=== PATIENT | female | born 1930 | race Hispanic/Latino ===

== ENCOUNTER 2018-08-27 07:50 | Inpatient (IN) | payer MEDICARE ==
--- NOTE | 2018-08-27 08:18 | Emergency Department Report ---
ED General Adult HPI - General Stated complaint: BACK PAIN Time Seen by Provider: 08/27/18 08:16 - History of Present Illness Initial comments: This is a 89-year-old female presents with an apparent acute exacerbation of chronic back pain. The patient had an MRI and [facility] within the last week. Presents with a family member that does not know what it showed. They state that she was given a disc to bring to her pain clinic doctor. They have been presuming that she has sciatica with back pain radiating to the right leg. There is pain in the lower back which is exacerbated by movement. The patient was incapacitated due to pain this morning. She was brought to the emergency department for further pain management. She did not report any inability to urinate but was having difficulty positioning herself to do so. She's had chronic numbness in her right leg. She has a history of a kyphoplasty. She is on chronic pain management with gabapentin and Lortab. She does not report any increased numbness of her leg or weakness of her lower extremities. She denies a history of an abdominal aneurysm. Family states patient has "a urine infection". She is currently taking an unknown antibiotic. -: Gradual, week(s), month(s), year(s) Location: back (lower) Radiation: extremity Quality: aching Consistency: constant Improves with: none Worsens with: movement Associated Symptoms: denies other symptoms - Related Data Allergies Allergy/AdvReac Type Severity Reaction Status Date / Time No Known Allergies Allergy Unverified 08/27/18 08:22 ED Review of Systems ROS: Stated complaint: BACK PAIN Other details as noted in HPI Constitutional: denies: chills, fever Eyes: denies: eye pain, eye discharge, vision change ENT: denies: ear pain, throat pain Respiratory: denies: cough, shortness of breath, wheezing Cardiovascular: denies: chest pain, palpitations Endocrine: no symptoms reported Gastrointestinal: denies: abdominal pain, nausea, diarrhea Genitourinary: denies: urgency, dysuria, discharge Musculoskeletal: as per HPI, back pain. denies: joint swelling, arthralgia Skin: denies: rash, lesions Neurological: denies: headache, weakness, paresthesias Psychiatric: denies: anxiety, depression Hematological/Lymphatic: denies: easy bleeding, easy bruising ED Past Medical Hx - Past Medical History Previous Medical History?: Yes Additional medical history: Sciatica, UTI, no history of venous thromboembolism - Family History Family history: no significant - Social History Substance Use Type: None ED Physical Exam - General Limitations: Other (appears uncomfortable) General appearance: alert - Head Head exam: Present: atraumatic, normocephalic - Eye Eye exam: Present: normal appearance. Absent: scleral icterus - ENT ENT exam: Present: normal exam - Neck Neck exam: Present: normal inspection. Absent: tenderness, meningismus - Respiratory Respiratory exam: Present: normal lung sounds bilaterally. Absent: respiratory distress - Cardiovascular Cardiovascular Exam: Present: regular rate, normal rhythm. Absent: systolic murmur, diastolic murmur, rubs, gallop - GI/Abdominal GI/Abdominal exam: Present: soft, normal bowel sounds. Absent: distended, tenderness, guarding, rebound, rigid - Extremities Exam Extremities exam: Present: normal inspection, other (previous to have prior knee replacement on the right) - Back Exam Back exam: Present: paraspinal tenderness (poorly localized lower back). Absent: CVA tenderness (R), CVA tenderness (L), muscle spasm, vertebral tenderness - Neurological Exam Neurological exam: Present: CN II-XII intact. Absent: motor sensory deficit (states decreased sensation globally of the right leg, 5/5 dorsi and plantar fl exion) - Psychiatric Psychiatric exam: Present: normal affect, normal mood - Skin Skin exam: Present: warm, dry, intact, normal color. Absent: rash ED Course Vital Signs 08/27/18 08/27/18 08/27/18 08:22 08:54 09:00 Temperature 97.9 F Pulse Rate 72 Respiratory 16 18 18 Rate Blood Pressure 180/67 O2 Sat by Pulse 99 Oximetry 08/27/18 10:31 Temperature Pulse Rate Respiratory 18 Rate Blood Pressure O2 Sat by Pulse Oximetry - Reevaluation(s) Reevaluation #1: Discussed with Dr. Grace. Patient to be admitted. 08/27/18 13:14 ED Medical Decision Making - Lab Data Result diagrams: 08/27/18 11:43 08/27/18 11:43 Laboratory Results - last 24 hr 08/27/18 08/27/18 08/27/18 08:38 11:43 11:43 WBC 8.4 RBC 4.52 Hgb 13.1 Hct 39.6 MCV 88 MCH 29 MCHC 33 RDW 14.5 Plt Count 185 Add Manual Diff Complete Total Counted 100 Seg Neuts % (Manual) 96.0 H Band Neutrophils % 0 Lymphocytes % (Manual) 4.0 L Reactive Lymphs % (Man) 0 Monocytes % (Manual) 0 Eosinophils % (Manual) 0 Basophils % (Manual) 0 Metamyelocytes % 0 Myelocytes % 0 Promyelocytes % 0 Blast Cells % 0 Nucleated RBC % Not Reportable Seg Neutrophils # Man 8.1 H Band Neutrophils # 0.0 Lymphocytes # (Manual) 0.3 L Abs React Lymphs (Man) 0.0 Monocytes # (Manual) 0.0 Eosinophils # (Manual) 0.0 Basophils # (Manual) 0.0 Metamyelocytes # 0.0 Myelocytes # 0.0 Promyelocytes # 0.0 Blast Cells # 0.0 WBC Morphology Not Reportable Hypersegmented Neuts Not Reportable Hyposegmented Neuts Not Reportable Hypogranular Neuts Not Reportable Smudge Cells Not Reportable Toxic Granulation Not Reportable Toxic Vacuolation Not Reportable Dohle Bodies Not Reportable Pelger-Huet Anomaly Not Reportable Agatha Rods Not Reportable Platelet Estimate Consistent w auto Clumped Platelets Not Reportable Plt Clumps, EDTA Not Reportable Large Platelets Not Reportable Giant Platelets Not Reportable Platelet Satelliting Not Reportable Plt Morphology Comment Not Reportable RBC Morphology Normal Dimorphic RBCs Not Reportable Polychromasia Not Reportable Hypochromasia Not Reportable Poikilocytosis Not Reportable Anisocytosis Not Reportable Microcytosis Not Reportable Macrocytosis Not Reportable Spherocytes Not Reportable Pappenheimer Bodies Not Reportable Sickle Cells Not Reportable Target Cells Not Reportable Tear Drop Cells Not Reportable Ovalocytes Not Reportable Helmet Cells Not Reportable Garza-Wiscon Bodies Not Reportable [place] Rings Not Reportable [place] Cells Not Reportable Bite Cells Not Reportable Crenated Cell Not Reportable Elliptocytes Not Reportable Acanthocytes (Spur) Not Reportable Rouleaux Not Reportable Hemoglobin C Crystals Not Reportable Schistocytes Not Reportable Malaria parasites Not Reportable Mike Bodies Not Reportable Hem Pathologist Commnt No PT 14.1 INR 1.12 APTT 28.4 Sodium Potassium Chloride Carbon Dioxide Anion Gap BUN Creatinine Estimated GFR BUN/Creatinine Ratio Glucose Calcium Magnesium Total Bilirubin Direct Bilirubin Indirect Bilirubin AST ALT Alkaline Phosphatase Total Protein Albumin Albumin/Globulin Ratio Urine Color Yellow Urine Turbidity Slightly-cloudy Urine pH 7.0 Ur Specific [place] 1.018 Urine Protein 30 mg/dl Urine Glucose (UA) Neg Urine Ketones Neg Urine Blood Lg Urine Nitrite Neg Urine Bilirubin Neg Urine Urobilinogen < 2.0 Ur Leukocyte Esterase Mod Urine WBC (Auto) 116.0 H Urine RBC (Auto) > 182.0 U Epithel Cells (Auto) 4.0 Urine Mucus Few Urine Yeast (Budding) Not Reportable 08/27/18 11:43 WBC RBC Hgb Hct MCV MCH MCHC RDW Plt Count Add Manual Diff Total Counted Seg Neuts % (Manual) Band Neutrophils % Lymphocytes % (Manual) Reactive Lymphs % (Man) Monocytes % (Manual) Eosinophils % (Manual) Basophils % (Manual) Metamyelocytes % Myelocytes % Promyelocytes % Blast Cells % Nucleated RBC % Seg Neutrophils # Man Band Neutrophils # Lymphocytes # (Manual) Abs React Lymphs (Man) Monocytes # (Manual) Eosinophils # (Manual) Basophils # (Manual) Metamyelocytes # Myelocytes # Promyelocytes # Blast Cells # WBC Morphology Hypersegmented Neuts Hyposegmented Neuts Hypogranular Neuts Smudge Cells Toxic Granulation Toxic Vacuolation Dohle Bodies Pelger-Huet Anomaly Agatha Rods Platelet Estimate Clumped Platelets Plt Clumps, EDTA Large Platelets Giant Platelets Platelet Satelliting Plt Morphology Comment RBC Morphology Dimorphic RBCs Polychromasia Hypochromasia Poikilocytosis Anisocytosis Microcytosis Macrocytosis Spherocytes Pappenheimer Bodies Sickle Cells Target Cells Tear Drop Cells Ovalocytes Helmet Cells Garza-Wiscon Bodies [place] Rings [place] Cells Bite Cells Crenated Cell Elliptocytes Acanthocytes (Spur) Rouleaux Hemoglobin C Crystals Schistocytes Malaria parasites Mike Bodies Hem Pathologist Commnt PT INR APTT Sodium 142 Potassium 3.9 Chloride 108.0 H Carbon Dioxide 19 L Anion Gap 19 BUN 17 Creatinine 0.8 Estimated GFR > 60 BUN/Creatinine Ratio 21 Glucose 119 H Calcium 9.0 Magnesium 1.60 L Total Bilirubin 0.60 Direct Bilirubin < 0.2 Indirect Bilirubin 0.4 AST 17 ALT 11 Alkaline Phosphatase 127 Total Protein 6.4 Albumin 3.3 L Albumin/Globulin Ratio 1.1 Urine Color Urine Turbidity Urine pH Ur Specific [place] Urine Protein Urine Glucose (UA) Urine Ketones Urine Blood Urine Nitrite Urine Bilirubin Urine Urobilinogen Ur Leukocyte Esterase Urine WBC (Auto) Urine RBC (Auto) U Epithel Cells (Auto) Urine Mucus Urine Yeast (Budding) - Radiology Data Radiology results: report reviewed (bilateral sacral compression fractures, previous kyphoplasty) Critical care attestation.: If time is entered above; I have spent that time in minutes in the direct care of this critically ill patient, excluding procedure time. ED Disposition Clinical Impression: Sciatica, right side, Intractable back pain Closed compression fracture of sacrum Qualifiers: Encounter type: initial encounter Qualified Code(s): S32.10XA - Unspecified fracture of sacrum, initial encounter for closed fracture Acute cystitis Qualifiers: Hematuria presence: without hematuria Qualified Code(s): N30.00 - Acute cystitis without hematuria Disposition: OP ADMIT IP TO THIS HOSP Is pt being admited?: Yes Does the pt Need Aspirin: Yes Condition: Stable Referrals: Stephanie THAYER MD [Primary Care Provider] - 3-5 Days Time of Disposition: 13:14
[2018-08-27] MEDS ORDERED: TORADOL IV ONE (08:29)
[2018-08-27] MEDS ORDERED: DILAUDID IV ONE ×2 (08:29→10:21)
[2018-08-27] MEDS ORDERED: NACL 0.9% 1000 ML 1,000 ML IV ONE ×2 (08:29→08:37)
[2018-08-27] MEDS ORDERED: ZOFRAN IV ONE (08:29)
[2018-08-27] MEDS ORDERED: BENADRYL IV ONE (08:30)
[2018-08-27] MEDS ORDERED: DECADRON IV ONE (08:30)
[2018-08-27 09:57] LABS: Bilirubin,Urine NEG (Negative); Blood,Urine LG (Negative); Color,Urine Yellow (Yellow); Mucus,Urine FEW /HPF; Urobilinogen,Urine < 2.0 mg/dL (<2.0)
[2018-08-27 10:00] LABS: RBC,Urine > 182.0 /HPF (0.0-6.0)
[2018-08-27] MEDS ORDERED: ROCEPHIN/NS 1 GM/50 ML 1 GM/50 ML BAG IV ONE (10:18)
--- NOTE | 2018-08-27 10:23 | XRay Report ---
Lumbar spine-3 views INDICATION: pain, prior history of kyphoplasty. Generalized low back pain chronically COMPARISON: None. IMPRESSION: Straightening of normal lumbar lordosis but otherwise normal alignment. Vertebroplasty c hange at L4 and L1 with multilevel wedge compression deformities seen throughout the lumbar spine mos t significant at L5 and L2 with approximately 50% height loss. No discrete fracture line to suggest a n acute abnormality. 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 Signer Name: Pop Currie MD Signed: 08/27/2018 10:18 AM Workstation Name: [id number]
[2018-08-27 11:54] LABS: Hematocrit 39.6 % (30.3-42.9); Hemoglobin 13.1 gm/dl (10.1-14.3); Mean Corpuscular HGB Conc 33 % (30-34); Mean Corpuscular Volume 88 fl (79-97); Platelet Count 185 K/mm3 (140-440); Red Blood Count 4.52 M/mm3 (3.65-5.03); Red Cell Distribution Width 14.5 % (13.2-15.2)
[2018-08-27 12:04] LABS: INR 1.12 (0.87-1.13)
[2018-08-27 12:05] LABS: Partial Thromboplastin Time 28.4 Sec. (24.2-36.6)
[2018-08-27 12:11] LABS: Alanine Aminotransferase 11 units/L (7-56); Albumin 3.3 g/dL (3.9-5); BUN/Creatinine Ratio 21; Blood Urea Nitrogen 17 mg/dL (7-17); Hemolysis Index 4
--- NOTE | 2018-08-27 12:22 | Cat Scan Report ---
CT ABDOMEN AND PELVIS WITHOUT CONTRAST HISTORY: back pain, UTI COMPARISON: None. TECHNIQUE: Axial CT images were obtained through the abdomen and pelvis without IV contrast. Sagittal and coronal reformatted images. All CT scans at this location are performed using CT dose reduction for ALARA by means of automated exposure control. FINDINGS: CT ABDOMEN: Lung Bases: Clear. Liver: No significant abnormality. Biliary: No significant abnormality. Spleen: No significant abnormality. Unenlarged. Pancreas: No significant abnormality. Adrenals: No significant abnormality. Kidneys: No significant abnormality. Lymphatics: No lymphadenopathy. Vasculature: Mild diffuse arterial calcifications. No aneurysm Bowel/Peritoneum: No evidence for obstruction, focal inflammation, free air or free fluid. Mild diver ticulosis of the sigmoid colon is noted. The appendix is not confidently identified. CT PELVIS: : Hysterectomy changes are suspected. The bladder and distal ureters are unremarkable Osseous Structures: Osteopenia is evident. Moderate multilevel degenerative changes are appreciated t hroughout the spine. Previous kyphoplasty changes are noted at L1 and L4. No acute vertebral body fra cture is identified. Bilateral sacral insufficiency fractures are identified. The fracture lines are slightly sclerotic suggesting these fractures are subacute with minimal signs of healing. Additional Findings: None IMPRESSION: Bilateral sacral insufficiency fractures are suspected. Please correlate with the patient. Osteopenia and multilevel degenerative change throughout the spine. Kyphoplasty changes at L1 and L4. Sigmoid diverticulosis. Assumed hysterectomy and appendectomy. No acute inflammatory process is appreciated. Signer Name: Álvaro Quijano Jr, MD Signed: 08/27/2018 12:18 PM Workstation Name: [id number]
[2018-08-27 12:29] LABS: Basophils % (Manual) 0 % (0.0-1.8); Bilirubin,Direct < 0.2 mg/dL (0-0.2); Eosinophils % (Manual) 0 % (0.0-4.3); Monocytes % (Manual) 0 % (0.0-7.3); Total Cells Counted 100
[2018-08-27 12:30] LABS: Platelet Estimate Consistent w Auto; RBC Morphology Normal
[2018-08-27] MEDS ORDERED: BABY ASPIRIN PO ONE (13:27)
--- NOTE | 2018-08-27 14:59 | History and Physical Report ---
History of Present Illness Chief complaint: My back hurts History of present illness: 88 YO Female with Lumbar Pain, Sciatica, Debility presents to ED for evaluation. Pt states that she has experienced pain in her lower back over the past 1 week with progressively worsening symptoms over the past 1 day. Pt states that her pain is 10/10, constant, worse with movement, relieved with non movement, radiates down her right leg, worsened with ambulation. AMS notified and upon arrival the patient was found to be in distress and transported to [facility]. Pt seen and evaluated in ED and found to have UTI, Lumbar disc compression, and hypertensive urgency. Pt denies saddle anesthesia, dysuria, incontinence, leg numbness, leg weakness, abdominal pain, productive cough, skin rash, trauma, or recent ill contacts. Pt admitted to PEDRITO unit and treated with steroid therapy, pain control. Ortho consulted in ED and recommend LSO Brace, steroid therapy, pain control and outpatient F/U care. No prior admission for review. All listed medication reconciled at time of admission. Past History Past Medical History: hypertension, other (LDD, Sciatica) Past Surgical History: Other (Kyphoplasty to Lumbar Spine.) Social history: , lives with family. denies: smoking, alcohol abuse, prescription drug abuse Family history: hypertension Medications and Allergies Allergies Allergy/AdvReac Type Severity Reaction Status Date / Time No Known Allergies Allergy Unverified 08/27/18 08:22 Active Meds: Active Medications Sodium Chloride (Nacl 0.9% 1000 Ml) 1,000 mls @ 125 mls/hr IV ONCE ONE Stop: 08/27/18 16:28 Last Admin: 08/27/18 08:50 Dose: 125 mls/hr Documented by: Sodium Chloride (Nacl 0.9% 1000 Ml) 1,000 mls @ 125 mls/hr IV ONCE ONE Stop: 08/27/18 16:36 Last Admin: 08/27/18 10:30 Dose: Not Given Documented by: Review of Systems Constitutional: no weight loss, no weight gain, no fever, no chills Ears, nose, mouth and throat: no ear pain, no ear discharge, no tinnitis, no decreased hearing, no nose pain Breasts: no change in shape, no swelling, no mass Cardiovascular: no chest pain, no orthopnea, no palpitations, no rapid/irregular heart beat, no edema, no syncope Respiratory: no cough, no cough with sputum, no excessive sputum, no shortness of breath, no dyspnea on exertion Gastrointestinal: no nausea, no vomiting, no diarrhea, no change in bowel habits, no hematemesis Genitourinary Female: no pelvic pain, no flank pain, no menorrhagia, no dysuria, no urinary frequency, no urgency, no stress incontinence Rectal: no pain, no incontinence, no bleeding Musculoskeletal: low back pain, shooting leg pain, no neck stiffness, no neck pain, no shooting arm pain, no hot joints, no morning stiffness, no muscle cramps, no myalgias Integumentary: no rash, no pruritis, no redness, no sores, no jaundice Neurological: no head injury, no transient paralysis, no paralysis, no weakness, no numbness, no seizures, no syncope Psychiatric: no anxiety, no memory loss, no sleep disturbances, no insomnia, no change in appetite, no disorientation Endocrine: no cold intolerance, no heat intolerance, no polyphagia, no excessive thirst, no polydipsia, no polyuria, no nocturia, no excessive sweating Hematologic/Lymphatic: no easy bruising, no easy bleeding, no lymphadenopathy, no lymphedema Allergic/Immunologic: no urticaria, no allergic rhinitis, no persistent infections, no anaphylaxis, no angioedema Exam - Constitutional Vitals: Temp Pulse Resp BP Pulse Ox 97.9 F 72 18 180/67 99 08/27/18 08:22 08/27/18 08:22 08/27/18 10:31 08/27/18 08:22 08/27/18 08:22 General appearance: Present: mild distress - EENT Eyes: Present: PERRL ENT: hearing intact, clear oral mucosa - Neck Neck: Present: supple, normal ROM - Respiratory Respiratory effort: normal Respiratory: bilateral: CTA - Cardiovascular Heart Sounds: Present: S1 & S2. Absent: rub, click - Extremities Extremities: pulses symmetrical, No edema Peripheral Pulses: within normal limits - Abdominal General gastrointestinal: Present: soft, non-tender, non-distended, normal bowel sounds Female genitourinary: Present: normal - Integumentary Integumentary: Present: clear, warm, dry - Musculoskeletal Musculoskeletal: generalized weakness, other (lumbar spinal tenderness, no paraspinal tenderness, no fluctuance,no masses) - Psychiatric Psychiatric: appropriate mood/affect, intact judgment & insight - Neurologic Neurologic: CNII-XII intact, moves all extremities Results - Labs CBC & Chem 7: 08/27/18 11:43 08/27/18 11:43 Labs: Abnormal lab results 08/27/18 08/27/18 08/27/18 Range/Units 08:38 11:43 11:43 Seg Neuts % (Manual) 96.0 H (40.0-70.0) % Lymphocytes % (Manual) 4.0 L (13.4-35.0) % Seg Neutrophils # Man 8.1 H (1.8-7.7) K/mm3 Lymphocytes # (Manual) 0.3 L (1.2-5.4) K/mm3 Chloride 108.0 H (98-107) mmol/L Carbon Dioxide 19 L (22-30) mmol/L Glucose 119 H (65-100) mg/dL Magnesium 1.60 L (1.7-2.3) mg/dL Albumin 3.3 L (3.9-5) g/dL Urine WBC (Auto) 116.0 H (0.0-6.0) /HPF Assessment and Plan - Patient Problems (1) Hypertensive urgency, malignant Current Visit: Yes Status: Acute Plan to address problem: monitor bp q shift, IV hydralazine prn, (2) Acidosis Current Visit: Yes Status: Acute Plan to address problem: IVF resuscitation therapy, IV bicarbonate x 1, repeat bmp (3) Lumbar compression fracture Current Visit: Yes Status: Acute Qualifiers: Lumbar vertebra fracture level: unspecified lumbar vertebra Plan to address problem: Ortho consulted in ED, and will see in outpatient clinic. Recommend LSO brace, pain control, IV steroid therapy. (4) Acute cystitis Current Visit: Yes Status: Acute Qualifiers: Hematuria presence: without hematuria Qualified Code(s): N30.00 - Acute cys titis without hematuria Plan to address problem: Iv antibiotic therapy, urinalysis, CBC, CMP, (5) Intractable back pain Current Visit: Yes Status: Acute Plan to address problem: Pain control, LSO brace, NSAID therapy (6) Debility Current Visit: Yes Status: Acute Plan to address problem: PT consulted, supportive care, (7) DVT prophylaxis Current Visit: Yes Status: Acute Plan to address problem: SCD to BLE while in bed,
[2018-08-27] MEDS ORDERED: ZOFRAN IV PRN (15:21)
[2018-08-27] MEDS ORDERED: PROVENTIL IH PRN (15:21)
[2018-08-27] MEDS ORDERED: PERCOCET 5/325 PO PRN (15:21)
[2018-08-27] MEDS ORDERED: TYLENOL PO PRN (15:21)
[2018-08-27] MEDS ORDERED: SODIUM CHLORIDE FLUSH SYRINGE 10 ML IV PRN (15:21)
[2018-08-27] MEDS ORDERED: BABY ASPIRIN ONE (15:51)
[2018-08-27] MEDS ORDERED: SOLU-Medrol IV ONE (16:00)
[2018-08-27] MEDS ORDERED: SOLU-Medrol ONE (16:40)
[2018-08-27] MEDS ORDERED: BENADRYL PO PRN (21:04)
[2018-08-27] MEDS: SOLU-Medrol IV SCH (22:19)
[2018-08-27] MEDS: SODIUM CHLORIDE FLUSH SYRINGE 10 ML IV SCH (22:19)
[2018-08-28] MEDS: APRESOLINE IV PRN (03:50)
[2018-08-28] MEDS: MORPHINE IV PRN ×2 (04:44→10:52)
[2018-08-28] MEDS ORDERED: NITROSTAT SL PRN (07:55)
--- NOTE | 2018-08-28 09:38 | Progress Note ---
Assessment and Plan Assessment and plan: 88 YO Female with Lumbar Pain, Sciatica, Debility presents to ED for evaluation. Pt states that she has experienced pain in her lower back over the past 1 week with progressively worsening symptoms over the past 1 day. Pt states that her pain is 10/10, constant, worse with movement, relieved with non movement, radiates down her right leg, worsened with ambulation. AMS notified and upon arrival the patient was found to be in distress and transported to [facility]. Pt seen and evaluated in ED and found to have UTI, Lumbar disc compression, and hypertensive urgency. Pt denies saddle anesthesia, dysuria, incontinence, leg numbness, leg weakness, abdominal pain, productive cough, skin rash, trauma, or recent ill contacts. Pt admitted to PEDRITO unit and treated with steroid therapy, pain control. Ortho consulted in ED and recommend LSO Brace, steroid therapy, pain control and outpatient F/U care. No prior admission for review. All listed medication reconciled at time of admission. CT AP IMPRESSION: Bilateral sacral insufficiency fractures are suspected. Please correlate with the patient. Osteopenia and multilevel degenerative change throughout the spine. Kyphoplasty changes at L1 and L4. Sigmoid diverticulosis. Assumed hysterectomy and appendectomy. No acute inflammatory process is appreciated. XRAY: IMPRESSION: Straightening of normal lumbar lordosis but otherwise normal alignment. Vertebroplasty change at L4 and L1 with multilevel wedge compression deformities seen throughout the lumbar spine most significant at L5 and L2 with approximately 50% height loss. No discrete fracture line to suggest an acute abnormality. 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 Atypical Chest pain Hypertensive urgency Metabolic Acidosis Acute Respiratory failure Lumbar compression fracture Chronic Pain syndrome-Patient on chronic opiods Osteoporsis-Continue vitamin D. Will add calcium. Acute Cystitis Intractable Black pain Debility PLAN * Code met called, patient noted with moderate respiratory distress * Await repeat labs * Consult cardiology * Ortho consulted in ED, and will see in outpatient clinic. Recommend LSO brace, pain control, IV steroid therapy * Pain control * Continue IV abx, Follow culture, pain control, * PT patient has had multiple falls as i understand from patients daughter * DVT/GI porphy History Interval history: Patient seen and examined today resting comfortably except that initially and this morning code met was called due to complaint of chest pain 3/10 intensity generalized with no radiated she was noted to be anxious initially but has now improved. Hospitalist Physical - Physical exam Narrative exam: VITAL SIGNS: Reviewed. GENERAL: The patient appears normally developed, Vital signs as documented. HEAD: No signs of head trauma. EYES: Pupils are equal. Extraocular motions intact. EARS: Hearing grossly intact. MOUTH: Oropharynx is normal. NECK: No adenopathy, no JVD. CHEST: Chest with clear breath sounds bilaterally. No wheezes, rales, or rhonchi. CARDIAC: Regular rate and rhythm. S1 and S2, without murmurs, gallops, or rubs. VASCULAR: No Edema. Peripheral pulses normal and equal in all extremities. ABDOMEN: Soft, non tender and non distended. No rebound or guarding, and no masses palpated. Bowel Sounds normal. MUSCULOSKELETAL: Good range of motion of all major joints. Extremities without clubbing, cyanosis or edema. NEUROLOGIC EXAM: Alert and oriented x 3 No focal sensory or strength deficits. Speech normal. Follows commands. PSYCHIATRIC: Mood normal. SKIN: detial exam as documented in skin assessment - Constitutional Vitals: Temp Pulse Resp BP Pulse Ox 98.8 F 84 18 160/70 96 08/28/18 07:10 08/28/18 08:05 08/28/18 08:05 08/28/18 07:10 08/28/18 09:14 General appearance: Present: mild distress Results - Labs CBC & Chem 7: 08/27/18 11:43 08/28/18 04:55 Labs: Laboratory Last Values WBC 8.4 K/mm3 (4.5-11.0) 08/27/18 11:43 RBC 4.52 M/mm3 (3.65-5.03) 08/27/18 11:43 Hgb 13.1 gm/dl (10.1-14.3) 08/27/18 11:43 Hct 39.6 % (30.3-42.9) 08/27/18 11:43 MCV 88 fl (79-97) 08/27/18 11:43 MCH 29 pg (28-32) 08/27/18 11:43 MCHC 33 % (30-34) 08/27/18 11:43 RDW 14.5 % (13.2-15.2) 08/27/18 11:43 Plt Count 185 K/mm3 (140-440) 08/27/18 11:43 Add Manual Diff Complete 08/27/18 11:43 Total Counted 100 08/27/18 11:43 Seg Neuts % (Manual) 96.0 % (40.0-70.0) H 08/27/18 11:43 0 % 08/27/18 11:43 4.0 % (13.4-35.0) L 08/27/18 11:43 Reactive Lymphs % (Man) 0 % 08/27/18 11:43 0 % (0.0-7.3) 08/27/18 11:43 0 % (0.0-4.3) 08/27/18 11:43 0 % (0.0-1.8) 08/27/18 11:43 0 % 08/27/18 11:43 0 % 08/27/18 11:43 0 % 08/27/18 11:43 0 % 08/27/18 11:43 Nucleated RBC % Not Reportable 08/27/18 11:43 Seg Neutrophils # Man 8.1 K/mm3 (1.8-7.7) H 08/27/18 11:43 Band Neutrophils # 0.0 K/mm3 08/27/18 11:43 0.3 K/mm3 (1.2-5.4) L 08/27/18 11:43 Abs React Lymphs (Man) 0.0 K/mm3 08/27/18 11:43 0.0 K/mm3 (0.0-0.8) 08/27/18 11:43 0.0 K/mm3 (0.0-0.4) 08/27/18 11:43 0.0 K/mm3 (0.0-0.1) 08/27/18 11:43 0.0 K/mm3 08/27/18 11:43 0.0 K/mm3 08/27/18 11:43 0.0 K/mm3 08/27/18 11:43 Blast Cells # 0.0 K/mm3 08/27/18 11:43 WBC Morphology Not Reportable 08/27/18 11:43 Hypersegmented Neuts Not Reportable 08/27/18 11:43 Hyposegmented Neuts Not Reportable 08/27/18 11:43 Hypogranular Neuts Not Reportable 08/27/18 11:43 Not Reportable 08/27/18 11:43 Not Reportable 08/27/18 11:43 Not Reportable 08/27/18 11:43 Not Reportable 08/27/18 11:43 Not Reportable 08/27/18 11:43 Not Reportable 08/27/18 11:43 Consistent w auto 08/27/18 11:43 Not Reportable 08/27/18 11:43 Plt Clumps, EDTA Not Reportable 08/27/18 11:43 Not Reportable 08/27/18 11:43 Not Reportable 08/27/18 11:43 Not Reportable 08/27/18 11:43 Plt Morphology Comment Not Reportable 08/27/18 11:43 RBC Morphology Normal 08/27/18 11:43 Dimorphic RBCs Not Reportable 08/27/18 11:43 Not Reportable 08/27/18 11:43 Not Reportable 08/27/18 11:43 Not Reportable 08/27/18 11:43 Not Reportable 08/27/18 11:43 Not Reportable 08/27/18 11:43 Not Reportable 08/27/18 11:43 Not Reportable 08/27/18 11:43 Not Reportable 08/27/18 11:43 Not Reportable 08/27/18 11:43 Not Reportable 08/27/18 11:43 Not Reportable 08/27/18 11:43 Not Reportable 08/27/18 11:43 Not Reportable 08/27/18 11:43 Not Reportable 08/27/18 11:43 Not Reportable 08/27/18 11:43 Not Reportable 08/27/18 11:43 Not Reportable 08/27/18 11:43 Not Reportable 08/27/18 11:43 Not Reportable 08/27/18 11:43 Acanthocytes (Spur) Not Reportable 08/27/18 11:43 Rouleaux Not Reportable 08/27/18 11:43 Not Reportable 08/27/18 11:43 Not Reportable 08/27/18 11:43 Not Reportable 08/27/18 11:43 Not Reportable 08/27/18 11:43 Hem Pathologist Commnt No 08/27/18 11:43 PT 14.1 Sec. (12.2-14.9) 08/27/18 11:43 INR 1.12 (0.87-1.13) 08/27/18 11:43 APTT 28.4 Sec. (24.2-36.6) 08/27/18 11:43 POC ABG pH 7.547 (7.35-7.45) H 08/28/18 08:26 POC ABG pO2 108 (80-105) H 08/28/18 08:26 POC ABG HCO3 18.7 (22-26 mml/L) 08/28/18 08:26 POC ABG Total CO2 19 (23-27mmol/L) 08/28/18 08:26 POC ABG O2 Sat 99 08/28/18 08:26 POC ABG Base Excess -4 ((-2) - (+3)mmol/L) 08/28/18 08:26 32 % 08/28/18 08:26 Sodium 141 mmol/L (137-145) 08/28/18 04:55 Potassium 4.3 mmol/L (3.6-5.0) 08/28/18 04:55 Chloride 108.8 mmol/L (98-107) H 08/28/18 04:55 Carbon Dioxide 20 mmol/L (22-30) L 08/28/18 04:55 17 mmol/L 08/28/18 04:55 BUN 24 mg/dL (7-17) H 08/28/18 04:55 0.9 mg/dL (0.7-1.2) 08/28/18 04:55 Estimated GFR 59 ml/min 08/28/18 04:55 27 % 08/28/18 04:55 Glucose 188 mg/dL (65-100) H 08/28/18 04:55 POC Glucose 181 (70-105) H 08/28/18 07:16 Calcium 9.0 mg/dL (8.4-10.2) 08/28/18 04:55 Magnesium 1.60 mg/dL (1.7-2.3) L 08/27/18 11:43 0.60 mg/dL (0.1-1.2) 08/27/18 11:43 < 0.2 mg/dL (0-0.2) 08/27/18 11:43 0.4 mg/dL 08/27/18 11:43 AST 17 units/L (5-40) 08/27/18 11:43 ALT 11 units/L (7-56) 08/27/18 11:43 127 units/L (35-129) 08/27/18 11:43 < 0.010 ng/mL (0.00-0.029) 08/28/18 08:16 6.4 g/dL (6.3-8.2) 08/27/18 11:43 3.3 g/dL (3.9-5) L 08/27/18 11:43 1.1 % 08/27/18 11:43 Yellow (Yellow) 08/27/18 08:38 Slightly-cloudy (Clear) 08/27/18 08:38 7.0 (5.0-7.0) 08/27/18 08:38 Ur Specific [place] 1.018 (1.003-1.030) 08/27/18 08:38 30 mg/dl mg/dL (Negative) 08/27/18 08:38 Neg mg/dL (Negative) 08/27/18 08:38 Neg mg/dL (Negative) 08/27/18 08:38 Lg (Negative) 08/27/18 08:38 Neg (Negative) 08/27/18 08:38 Neg (Negative) 08/27/18 08:38 < 2.0 mg/dL (<2.0) 08/27/18 08:38 Ur Leukocyte Esterase Mod (Negative) 08/27/18 08:38 116.0 /HPF (0.0-6.0) H 08/27/18 08:38 > 182.0 /HPF (0.0-6.0) 08/27/18 08:38 U Epithel Cells (Auto) 4.0 /HPF (0-13.0) 08/27/18 08:38 Few /HPF 08/27/18 08:38 Not Reportable 08/27/18 08:38 Active Medications - Current Medications Current Medications: Generic Name Dose Route Start Last Admin Trade Name Freq PRN Reason Stop Dose Admin Acetaminophen 650 mg 08/27/18 15:21 Tylenol PO Q4H PRN Pain MILD(1-3)/Fever >100.5/GARRETT Albuterol 2.5 mg 08/27/18 15:21 Proventil IH Q4HRT PRN Shortness Of Breath Diphenhydramine HCl 25 mg 08/27/18 21:04 08/27/18 23:44 Benadryl PO 25 mg QHS PRN Administration Sleep Enoxaparin Sodium 40 mg 08/28/18 10:00 Lovenox SUB-Q QDAY@1000 RADHA Hydralazine HCl 10 mg 08/27/18 15:25 08/28/18 03:50 Apresoline IV 10 mg Q6HR PRN Administration HTN SBP>165 Sodium Chloride 1,000 mls @ 42 mls/hr 08/27/18 16:00 Nacl 0.45% 1000 Ml IV DIRECT RADHA Methylprednisolone Sodium Succinate 40 mg 08/27/18 22:00 08/27/18 22:19 Solu-Medrol IV 40 mg Q12HR RADHA Administration Morphine Sulfate 2 mg 08/27/18 15:21 08/28/18 04:44 Morphine IV 2 mg Q4H PRN Administration Pain, Moderate (4-6) Nitroglycerin 0.4 mg 08/28/18 07:55 08/28/18 08:06 Nitrostat SL 0.4 mg .Q5MIN PRN Administration Chest Pain Ondansetron HCl 4 mg 08/27/18 15:21 Zofran IV Q8H PRN Nausea And Vomiting Oxycodone/Acetaminophen 1 tab 08/27/18 15:21 08/27/18 22:19 Percocet 5/325 PO 1 tab Q6H PRN Administration Pain, Moderate (4-6) Sodium Chloride 10 ml 08/27/18 22:00 08/27/18 22:19 Sodium Chloride Flush Syringe 10 Ml IV 10 ml BID RADHA Administration Sodium Chloride 10 ml 08/27/18 15:21 Sodium Chloride Flush Syringe 10 Ml IV PRN PRN LINE FLUSH
[2018-08-28] MEDS ORDERED: HYDROCODONE PO PRN (09:48)
[2018-08-28] MEDS ORDERED: APAP PO PRN (09:48)
[2018-08-28] MEDS ORDERED: VITAMIN D PO SCH (10:00)
[2018-08-28] MEDS ORDERED: NON-FORMULARY (Losartan 100 MG) PO SCH (10:00)
[2018-08-28] MEDS ORDERED: LOVENOX SUB-Q SCH (10:00)
[2018-08-28] MEDS ORDERED: MELOXICAM 15 MG PO SCH (10:00)
--- NOTE | 2018-08-28 10:19 | Consultation ---
History of Present Illness Consult date: 08/28/18 Consult reason: hypertension History of present illness: 88 YO woman with h/o htn, sciatica, and chronic low back pain presented to hospital with intractable low back pain. She was found to have UTI and hypertensive urgency. This morning she had episode of pressure type of left sided chest pain and associated dyspnea. ECG done during episode of chest pain reveals sinus rhythm, possible prior anterior DC but no acute ischemic changes. Past History Past Medical History: hypertension, other (LDD, Sciatica) Past Surgical History: Other (Kyphoplasty to Lumbar Spine.) Social history: , lives with family. denies: smoking, alcohol abuse, prescription drug abuse Family history: hypertension Medications and Allergies Allergies Allergy/AdvReac Type Severity Reaction Status Date / Time No Known Allergies Allergy Unverified 08/27/18 08:22 Home Medications Medication Instructions Recorded Confirmed Last Taken Type Adult One Daily Multivit Tab 1 tab PO QDAY 08/28/18 08/28/18 Unknown History Atenolol [Tenormin] 25 mg PO QDAY 08/28/18 08/28/18 Unknown History Gabapentin [Neurontin] 200 mg PO BID 08/28/18 08/28/18 Unknown History HYDROcodone/APAP 5-325 5 mg PO Q8HR PRN 08/28/18 08/28/18 Unknown History Losartan 100 mg PO QDAY 08/28/18 08/28/18 Unknown History Meloxicam 15 mg PO QAM 08/28/18 08/28/18 Unknown History Vitamin D (Nf) 1 tab PO QDAY 08/28/18 08/28/18 Unknown History Active Meds: Active Medications Acetaminophen (Tylenol) 650 mg PO Q4H PRN PRN Reason: Pain MILD(1-3)/Fever >100.5/GARRETT Albuterol (Proventil) 2.5 mg IH Q4HRT PRN PRN Reason: Shortness Of Breath Atenolol (Tenormin) 25 mg PO QDAY RADHA Calcium/Vitamin D ([place] D 500 Mg-200 Unit) 2 each PO BID RADHA Cholecalciferol (Vitamin D3) 400 unit PO QDAY RADHA Diphenhydramine HCl (Benadryl) 25 mg PO QHS PRN PRN Reason: Sleep Last Admin: 08/27/18 23:44 Dose: 25 mg Documented by: Enoxaparin Sodium (Lovenox) 40 mg SUB-Q QDAY@1000 RADHA Gabapentin (Neurontin) 200 mg PO BID [facility] Hydralazine HCl (Apresoline) 10 mg IV Q6HR PRN PRN Reason: HTN SBP>165 Last Admin: 08/28/18 03:50 Dose: 10 mg Documented by: Sodium Chloride (Nacl 0.45% 1000 Ml) 1,000 mls @ 42 mls/hr IV DIRECT RADHA Magnesium Sulfate 1 gm/ Sodium (Chloride) 52 mls @ 52 mls/hr IV ONCE ONE Stop: 08/28/18 11:59 Losartan Potassium (Cozaar) 100 mg PO QDAY [facility] Meloxicam (Mobic) 15 mg PO QDAY [facility] Methylprednisolone Sodium Succinate (Solu-Medrol) 40 mg IV Q12HR [facility] Last Admin: 08/27/18 22:19 Dose: 40 mg Documented by: Morphine Sulfate (Morphine) 2 mg IV Q4H PRN PRN Reason: Pain, Moderate (4-6) Last Admin: 08/28/18 04:44 Dose: 2 mg Documented by: Nitroglycerin (Nitrostat) 0.4 mg SL .Q5MIN PRN PRN Reason: Chest Pain Last Admin: 08/28/18 08:06 Dose: 0.4 mg Documented by: Ondansetron HCl (Zofran) 4 mg IV Q8H PRN PRN Reason: Nausea And Vomiting Oxycodone/Acetaminophen (Percocet 5/325) 1 tab PO Q6H PRN PRN Reason: Pain, Moderate (4-6) Last Admin: 08/27/18 22:19 Dose: 1 tab Documented by: Sodium Chloride (Sodium Chloride Flush Syringe 10 Ml) 10 ml IV BID [facility] Last Admin: 08/27/18 22:19 Dose: 10 ml Documented by: Sodium Chloride (Sodium Chloride Flush Syringe 10 Ml) 10 ml IV PRN PRN PRN Reason: LINE FLUSH Review of Systems All systems: negative (per hpi) Physical Examination Vital Signs Pulse Ox 99 08/27/18 08:10 General appearance: no acute distress Neck: Positive: neck supple Cardiac: Positive: Reg Rate and Rhythm. Negative: Audible Murmur Lungs: Positive: clear to auscultation Abdomen: Positive: Soft, Active Bowel Sounds Extremities: Absent: edema Results 08/27/18 11:43 08/28/18 04:55 Cardiac Enzymes 08/27/18 Range/Units 11:43 AST 17 (5-40) units/L Coagulation 08/27/18 Range/Units 11:43 PT 14.1 (12.2-14.9) Sec. INR 1.12 (0.87-1.13) APTT 28.4 (24.2-36.6) Sec. CBC 08/27/18 Range/Units 11:43 WBC 8.4 (4.5-11.0) K/mm3 RBC 4.52 (3.65-5.03) M/mm3 Hgb 13.1 (10.1-14.3) gm/dl Hct 39.6 (30.3-42.9) % Plt Count 185 (140-440) K/mm3 Comprehensive Metabolic Panel 08/27/18 08/28/18 Range/Units 11:43 04:55 Sodium 142 141 (137-145) mmol/L Potassium 3.9 4.3 (3.6-5.0) mmol/L Chloride 108.0 H 108.8 H (98-107) mmol/L Carbon Dioxide 19 L 20 L (22-30) mmol/L BUN 17 24 H (7-17) mg/dL Creatinine 0.8 0.9 (0.7-1.2) mg/dL Glucose 119 H 188 H (65-100) mg/dL Calcium 9.0 9.0 (8.4-10.2) mg/dL Direct Bilirubin < 0.2 (0-0.2) mg/dL Indirect Bilirubin 0.4 mg/dL AST 17 (5-40) units/L ALT 11 (7-56) units/L Alkaline Phosphatase 127 (35-129) units/L Total Protein 6.4 (6.3-8.2) g/dL Albumin 3.3 L (3.9-5) g/dL Assessment and Plan Episode of chest pain: No acute ECG changes and initial troponin unremarkable. Possibly related to hypertensive urgency Low back pain Hypertensive urgency: Likely exacerbated by low back pain UTI Recommend: Check serial cardiac enzymes Will titrate BP medications as needed Management of UTI and low back pain per primary service.
[2018-08-28] MEDS: NACL 0.45% 1000 ML 1,000 ML IV SCH (10:56)
[2018-08-28] MEDS: OYSCO D 500 MG-200 UNIT PO SCH ×2 (10:57→21:47)
[2018-08-28] MEDS: SOLU-Medrol IV SCH ×2 (10:57→21:47)
[2018-08-28] MEDS: TENORMIN PO SCH (10:57)
[2018-08-28] MEDS: NEURONTIN PO SCH ×2 (10:57→21:47)
[2018-08-28] MEDS: COZAAR PO SCH (10:58)
[2018-08-28] MEDS: LOVENOX SUB-Q SCH (10:58)
[2018-08-28] MEDS ORDERED: MAGNESIUM SULFATE 1 GM in NACL 0.9% 50 ML IV ONE (11:00)
[2018-08-28] MEDS: SODIUM CHLORIDE FLUSH SYRINGE 10 ML IV SCH ×2 (11:20→23:15)
--- NOTE | 2018-08-28 12:11 | XRay Report ---
CHEST 1 VIEW INDICATION / CLINICAL INFORMATION: shortness of breath. COMPARISON: None available. FINDINGS: SUPPORT DEVICES: None. HEART / MEDIASTINUM: No significant abnormality. LUNGS / PLEURA: No significant pulmonary or pleural abnormality. No pneumothorax. ADDITIONAL FINDINGS: No significant additional findings. IMPRESSION: 1. No acute findings. Signer Name: Marc Johnson MD Signed: 08/28/2018 12:07 PM Workstation Name: [id number]
[2018-08-28] MEDS: ROCEPHIN/NS 1 GM/50 ML 1 GM/50 ML BAG IV SCH (13:12)
[2018-08-28] MEDS: VITAMIN D3 PO SCH (13:34)
[2018-08-28] MEDS: MOBIC PO SCH (13:34)
[2018-08-28] MEDS: XANAX PO PRN ×2 (13:34→23:40)
[2018-08-28 14:44] LABS: Creatine Kinase MB 2.9 ng/mL (0.0-4.0)
[2018-08-28] MEDS: HumaLOG SUB-Q SCH (22:30)
[2018-08-29] MEDS ORDERED: D50W (25GM) Syringe IV PRN (09:34)
[2018-08-29] MEDS: COZAAR PO SCH (10:46)
[2018-08-29] MEDS: VITAMIN D3 PO SCH (10:46)
[2018-08-29] MEDS: SOLU-Medrol IV SCH ×2 (10:47→22:09)
[2018-08-29] MEDS: LOVENOX SUB-Q SCH (10:47)
[2018-08-29] MEDS: OYSCO D 500 MG-200 UNIT PO SCH ×2 (10:47→22:01)
[2018-08-29] MEDS: NEURONTIN PO SCH ×2 (10:47→22:01)
[2018-08-29] MEDS: TENORMIN PO SCH (10:48)
[2018-08-29] MEDS: MOBIC PO SCH (10:48)
[2018-08-29] MEDS: SODIUM CHLORIDE FLUSH SYRINGE 10 ML IV SCH ×2 (10:49→22:01)
[2018-08-29] MEDS: ROCEPHIN/NS 1 GM/50 ML 1 GM/50 ML BAG IV SCH (10:50)
[2018-08-29] MEDS: HumaLOG SUB-Q SCH ×2 (12:05→16:50)
--- NOTE | 2018-08-29 12:40 | Progress Note ---
Assessment and Plan Assessment and plan: 88 YO Female with Lumbar Pain, Sciatica, Debility presents to ED for evaluation. Pt states that she has experienced pain in her lower back over the past 1 week with progressively worsening symptoms over the past 1 day. Pt states that her pain is 10/10, constant, worse with movement, relieved with non movement, radiates down her right leg, worsened with ambulation. AMS notified and upon arrival the patient was found to be in distress and transported to [facility]. Pt seen and evaluated in ED and found to have UTI, Lumbar disc compression, and hypertensive urgency. Pt denies saddle anesthesia, dysuria, incontinence, leg numbness, leg weakness, abdominal pain, productive cough, skin rash, trauma, or recent ill contacts. Pt admitted to PEDRITO unit and treated with steroid therapy, pain control. Ortho consulted in ED and recommend LSO Brace, steroid therapy, pain control and outpatient F/U care. No prior admission for review. All listed medication reconciled at time of admission. CT AP IMPRESSION: Bilateral sacral insufficiency fractures are suspected. Please correlate with the patient. Osteopenia and multilevel degenerative change throughout the spine. Kyphoplasty changes at L1 and L4. Sigmoid diverticulosis. Assumed hysterectomy and appendectomy. No acute inflammatory process is appreciated. XRAY: IMPRESSION: Straightening of normal lumbar lordosis but otherwise normal alignment. Vertebroplasty change at L4 and L1 with multilevel wedge compression deformities seen throughout the lumbar spine most significant at L5 and L2 with approximately 50% height loss. No discrete fracture line to suggest an acute abnormality. 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 Atypical Chest pain Hypertensive urgency Metabolic Acidosis Acute Respiratory failure Lumbar compression fracture HX of kyphoplasty Chronic Pain syndrome-Patient on chronic opiods Osteoporsis-Continue vitamin D. Will add calcium. Acute Cystitis Intractable Black pain Debility PLAN * Pain control * Await repeat labs * Consult cardiology and input noted * Ortho consulted in ED, and will see in outpatient clinic. Recommend LSO brace, pain control, IV steroid therapy, TAPER STEROIDS * Continue IV abx, Follow culture, pain control, * PT patient has had multiple falls as i understand from patients daughter * DVT/GI porphy * Anticipate discharge in am following PT eval History Interval history: Patient seen and examined today resting comfortably no new complaints except exacerbation of chronic back pain Hospitalist Physical - Physical exam Narrative exam: VITAL SIGNS: Reviewed. GENERAL: The patient appears normally developed, Vital signs as documented. HEAD: No signs of head trauma. EYES: Pupils are equal. Extraocular motions intact. EARS: Hearing grossly intact. MOUTH: Oropharynx is normal. NECK: No adenopathy, no JVD. CHEST: Chest with clear breath sounds bilaterally. No wheezes, rales, or rhonchi. CARDIAC: Regular rate and rhythm. S1 and S2, without murmurs, gallops, or rubs. VASCULAR: No Edema. Peripheral pulses normal and equal in all extremities. ABDOMEN: Soft, non tender and non distended. No rebound or guarding, and no masses palpated. Bowel Sounds normal. MUSCULOSKELETAL: Good range of motion of all major joints. Tender in the paraspinal area with palpation. Extremities without clubbing, cyanosis or edema. NEUROLOGIC EXAM: Alert and oriented x 3, Lathergic, No focal sensory or strength deficits. Speech normal. Follows commands. PSYCHIATRIC: Mood normal. SKIN: detail exam as documented in skin assessment - Constitutional Vitals: Temp Pulse Resp BP Pulse Ox 97.6 F 66 18 144/57 96 08/29/18 07:57 08/29/18 10:48 08/29/18 10:48 08/29/18 10:48 08/29/18 08:29 General appearance: Present: mild distress Results - Labs CBC & Chem 7: 08/27/18 11:43 08/28/18 04:55 Labs: Laboratory Last Values WBC 8.4 K/mm3 (4.5-11.0) 08/27/18 11:43 RBC 4.52 M/mm3 (3.65-5.03) 08/27/18 11:43 Hgb 13.1 gm/dl (10.1-14.3) 08/27/18 11:43 Hct 39.6 % (30.3-42.9) 08/27/18 11:43 MCV 88 fl (79-97) 08/27/18 11:43 MCH 29 pg (28-32) 08/27/18 11:43 MCHC 33 % (30-34) 08/27/18 11:43 RDW 14.5 % (13.2-15.2) 08/27/18 11:43 Plt Count 185 K/mm3 (140-440) 08/27/18 11:43 Add Manual Diff Complete 08/27/18 11:43 Total Counted 100 08/27/18 11:43 Seg Neuts % (Manual) 96.0 % (40.0-70.0) H 08/27/18 11:43 0 % 08/27/18 11:43 4.0 % (13.4-35.0) L 08/27/18 11:43 Reactive Lymphs % (Man) 0 % 08/27/18 11:43 0 % (0.0-7.3) 08/27/18 11:43 0 % (0.0-4.3) 08/27/18 11:43 0 % (0.0-1.8) 08/27/18 11:43 0 % 08/27/18 11:43 0 % 08/27/18 11:43 0 % 08/27/18 11:43 0 % 08/27/18 11:43 Nucleated RBC % Not Reportable 08/27/18 11:43 Seg Neutrophils # Man 8.1 K/mm3 (1.8-7.7) H 08/27/18 11:43 Band Neutrophils # 0.0 K/mm3 08/27/18 11:43 0.3 K/mm3 (1.2-5.4) L 08/27/18 11:43 Abs React Lymphs (Man) 0.0 K/mm3 08/27/18 11:43 0.0 K/mm3 (0.0-0.8) 08/27/18 11:43 0.0 K/mm3 (0.0-0.4) 08/27/18 11:43 0.0 K/mm3 (0.0-0.1) 08/27/18 11:43 0.0 K/mm3 08/27/18 11:43 0.0 K/mm3 08/27/18 11:43 0.0 K/mm3 08/27/18 11:43 Blast Cells # 0.0 K/mm3 08/27/18 11:43 WBC Morphology Not Reportable 08/27/18 11:43 Hypersegmented Neuts Not Reportable 08/27/18 11:43 Hyposegmented Neuts Not Reportable 08/27/18 11:43 Hypogranular Neuts Not Reportable 08/27/18 11:43 Not Reportable 08/27/18 11:43 Not Reportable 08/27/18 11:43 Not Reportable 08/27/18 11:43 Not Reportable 08/27/18 11:43 Not Reportable 08/27/18 11:43 Not Reportable 08/27/18 11:43 Consistent w auto 08/27/18 11:43 Not Reportable 08/27/18 11:43 Plt Clumps, EDTA Not Reportable 08/27/18 11:43 Not Reportable 08/27/18 11:43 Not Reportable 08/27/18 11:43 Not Reportable 08/27/18 11:43 Plt Morphology Comment Not Reportable 08/27/18 11:43 RBC Morphology Normal 08/27/18 11:43 Dimorphic RBCs Not Reportable 08/27/18 11:43 Not Reportable 08/27/18 11:43 Not Reportable 08/27/18 11:43 Not Reportable 08/27/18 11:43 Not Reportable 08/27/18 11:43 Not Reportable 08/27/18 11:43 Not Reportable 08/27/18 11:43 Not Reportable 08/27/18 11:43 Not Reportable 08/27/18 11:43 Not Reportable 08/27/18 11:43 Not Reportable 08/27/18 11:43 Not Reportable 08/27/18 11:43 Not Reportable 08/27/18 11:43 Not Reportable 08/27/18 11:43 Not Reportable 08/27/18 11:43 Not Reportable 08/27/18 11:43 Not Reportable 08/27/18 11:43 Not Reportable 08/27/18 11:43 Not Reportable 08/27/18 11:43 Not Reportable 08/27/18 11:43 Acanthocytes (Spur) Not Reportable 08/27/18 11:43 Rouleaux Not Reportable 08/27/18 11:43 Not Reportable 08/27/18 11:43 Not Reportable 08/27/18 11:43 Not Reportable 08/27/18 11:43 Not Reportable 08/27/18 11:43 Hem Pathologist Commnt No 08/27/18 11:43 PT 14.1 Sec. (12.2-14.9) 08/27/18 11:43 INR 1.12 (0.87-1.13) 08/27/18 11:43 APTT 28.4 Sec. (24.2-36.6) 08/27/18 11:43 POC ABG pH 7.547 (7.35-7.45) H 08/28/18 08:26 POC ABG pO2 108 (80-105) H 08/28/18 08:26 POC ABG HCO3 18.7 (22-26 mml/L) 08/28/18 08:26 POC ABG Total CO2 19 (23-27mmol/L) 08/28/18 08:26 POC ABG O2 Sat 99 08/28/18 08:26 POC ABG Base Excess -4 ((-2) - (+3)mmol/L) 08/28/18 08:26 32 % 08/28/18 08:26 Sodium 141 mmol/L (137-145) 08/28/18 04:55 Potassium 4.3 mmol/L (3.6-5.0) 08/28/18 04:55 Chloride 108.8 mmol/L (98-107) H 08/28/18 04:55 Carbon Dioxide 20 mmol/L (22-30) L 08/28/18 04:55 17 mmol/L 08/28/18 04:55 BUN 24 mg/dL (7-17) H 08/28/18 04:55 0.9 mg/dL (0.7-1.2) 08/28/18 04:55 Estimated GFR 59 ml/min 08/28/18 04:55 27 % 08/28/18 04:55 Glucose 188 mg/dL (65-100) H 08/28/18 04:55 POC Glucose 132 (70-105) H 08/29/18 11:36 Calcium 9.0 mg/dL (8.4-10.2) 08/28/18 04:55 Magnesium 1.60 mg/dL (1.7-2.3) L 08/27/18 11:43 0.60 mg/dL (0.1-1.2) 08/27/18 11:43 < 0.2 mg/dL (0-0.2) 08/27/18 11:43 0.4 mg/dL 08/27/18 11:43 AST 17 units/L (5-40) 08/27/18 11:43 ALT 11 units/L (7-56) 08/27/18 11:43 127 units/L (35-129) 08/27/18 11:43 65 units/L (30-135) 08/28/18 19:17 CK-MB (CK-2) 3.0 ng/mL (0.0-4.0) 08/28/18 19:17 CK-MB (CK-2) Rel Index 4.6 (0-4) H 08/28/18 19:17 < 0.010 ng/mL (0.00-0.029) 08/28/18 19:17 6.4 g/dL (6.3-8.2) 08/27/18 11:43 3.3 g/dL (3.9-5) L 08/27/18 11:43 1.1 % 08/27/18 11:43 Yellow (Yellow) 08/27/18 08:38 Slightly-cloudy (Clear) 08/27/18 08:38 7.0 (5.0-7.0) 08/27/18 08:38 Ur Specific [place] 1.018 (1.003-1.030) 08/27/18 08:38 30 mg/dl mg/dL (Negative) 08/27/18 08:38 Neg mg/dL (Negative) 08/27/18 08:38 Neg mg/dL (Negative) 08/27/18 08:38 Lg (Negative) 08/27/18 08:38 Neg (Negative) 08/27/18 08:38 Neg (Negative) 08/27/18 08:38 < 2.0 mg/dL (<2.0) 08/27/18 08:38 Ur Leukocyte Esterase Mod (Negative) 08/27/18 08:38 116.0 /HPF (0.0-6.0) H 08/27/18 08:38 > 182.0 /HPF (0.0-6.0) 08/27/18 08:38 U Epithel Cells (Auto) 4.0 /HPF (0-13.0) 08/27/18 08:38 Few /HPF 08/27/18 08:38 Not Reportable 08/27/18 08:38 Active Medications - Current Medications Current Medications: Generic Name Dose Route Start Last Admin Trade Name Freq PRN Reason Stop Dose Admin Acetaminophen 650 mg 08/27/18 15:21 Tylenol PO Q4H PRN Pain MILD(1-3)/Fever >100.5/GARRETT Albuterol 2.5 mg 08/27/18 15:21 Proventil IH Q4HRT PRN Shortness Of Breath Alprazolam 0.25 mg 08/28/18 13:12 08/28/18 23:40 Xanax PO 0.25 mg Q8H PRN Administration Anxiety Atenolol 25 mg 08/28/18 10:00 08/29/18 10:48 Tenormin PO 25 mg QDAY RADHA Administration Calcium/Vitamin D 2 each 08/28/18 10:00 08/29/18 10:47 Oysco D 500 Mg-200 Unit PO 2 each BID RADHA Administration Cholecalciferol 400 unit 08/28/18 14:00 08/29/18 10:46 Vitamin D3 PO 400 unit QDAY RADHA Administration Dextrose 50 ml 08/29/18 09:34 D50w (25gm) Syringe IV PRN PRN Hypoglycemia Diphenhydramine HCl 25 mg 08/27/18 21:04 08/27/18 23:44 Benadryl PO 25 mg QHS PRN Administration Sleep Enoxaparin Sodium 40 mg 08/28/18 10:00 08/29/18 10:47 Lovenox SUB-Q 40 mg QDAY@1000 RADHA Administration Gabapentin 200 mg 08/28/18 10:00 08/29/18 10:47 Neurontin PO 200 mg BID RADHA Administration Hydralazine HCl 10 mg 08/27/18 15:25 08/28/18 03:50 Apresoline IV 10 mg Q6HR PRN Administration HTN SBP>165 Sodium Chloride 1,000 mls @ 42 mls/hr 08/27/18 16:00 08/28/18 10:56 Nacl 0.45% 1000 Ml IV 42 mls/hr DIRECT RADHA Administration Ceftriaxone Sodium 1 gm in 50 mls @ 100 mls/hr 08/28/18 12:00 08/29/18 10:50 Rocephin/Ns 1 Gm/50 Ml IV 100 mls/hr Q24HR RADHA Administration Protocol Insulin Human Lispro 0 unit 08/29/18 11:30 Humalog SUB-Q ACHS RADHA Protocol Losartan Potassium 100 mg 08/28/18 10:00 08/29/18 10:46 Cozaar PO 100 mg QDAY RADHA Administration Meloxicam 15 mg 08/28/18 14:00 08/29/18 10:48 Mobic PO 15 mg QDAY RADHA Administration Methylprednisolone Sodium Succinate 40 mg 08/27/18 22:00 08/29/18 10:47 Solu-Medrol IV 40 mg Q12HR RADHA Administration Morphine Sulfate 2 mg 08/27/18 15:21 08/28/18 10:52 Morphine IV 2 mg Q4H PRN Administration Pain, Moderate (4-6) Nitroglycerin 0.4 mg 08/28/18 07:55 08/28/18 08:06 Nitrostat SL 0.4 mg .Q5MIN PRN Administration Chest Pain Ondansetron HCl 4 mg 08/27/18 15:21 Zofran IV Q8H PRN Nausea And Vomiting Oxycodone/Acetaminophen 1 tab 08/27/18 15:21 08/27/18 22:19 Percocet 5/325 PO 1 tab Q6H PRN Administration Pain, Moderate (4-6) Sodium Chloride 10 ml 08/27/18 22:00 08/29/18 10:49 Sodium Chloride Flush Syringe 10 Ml IV 10 ml BID RADHA Administration Sodium Chloride 10 ml 08/27/18 15:21 Sodium Chloride Flush Syringe 10 Ml IV PRN PRN LINE FLUSH
--- NOTE | 2018-08-29 13:50 | Progress Note ---
Assessment and Plan Episode of chest pain: No acute ECG changes and serial troponins negative. Possibly related to hypertensive urgency Low back pain Hypertensive urgency: Likely exacerbated by low back pain. Now improved. UTI Recommend: Continue current therapy Management of UTI and low back pain per primary service. Outpatient f/u with primary news assignment editor - Dr James Subjective Date of service: 08/29/18 Interval history: Pt is feeling better. No further chest pain and BP is much improved. Objective Vital Signs Temp Pulse Pulse Resp BP Pulse Ox 08/29/18 11:48 20 08/29/18 10:48 66 18 144/57 08/29/18 10:46 66 144/57 08/29/18 10:00 66 18 96 08/29/18 08:29 96 08/29/18 07:57 97.6 F 66 18 144/57 95 08/29/18 06:49 98.1 F 08/29/18 02:42 32.1 F L 72 17 160/72 98 08/28/18 20:36 96 08/28/18 19:50 98.3 F 69 18 148/55 98 08/28/18 19:49 68 - Physical Examination Neck: Positive: neck supple Cardiac: Positive: Reg Rate and Rhythm Lungs: Positive: clear to auscultation Abdomen: Positive: Soft, Active Bowel Sounds Extremities: Absent: edema - Labs and Meds Cardiac Enzymes 08/28/18 08/28/18 Range/Units 14:13 19:17 CK-MB (CK-2) 2.9 3.0 (0.0-4.0) ng/mL
[2018-08-30] MEDS: NACL 0.45% 1000 ML 1,000 ML IV SCH (01:35)
[2018-08-30] MEDS: MORPHINE IV PRN (03:49)
[2018-08-30] MEDS: APRESOLINE IV PRN (05:35)
[2018-08-30] MEDS: HumaLOG SUB-Q SCH (07:41)
[2018-08-30 08:07] VITALS: BP 154/68
--- NOTE | 2018-08-30 08:51 | Discharge Summary ---
Providers - Providers Date of Admission: 08/27/18 15:21 Attending physician: GEORGE HANNON MD 08/27/18 15:26 Physical Therapy Evaluation and Treat [CONS] Routine Comment: Reason For Exam: weakness 08/28/18 07:57 Consult to Physician [CONS] Routine Comment: JOSE Consulting Provider: CASEY ORNELAS Physician Instructions: WAS NOTIFIED. Reason For Exam: chest pain Primary care physician: Marisela THAYER MD Hospitalization Reason for admission: Back pain Condition: Stable Hospital course: 88 YO Female with Lumbar Pain, Sciatica, Debility presents to ED for evaluation. Pt states that she has experienced pain in her lower back over the past 1 week with progressively worsening symptoms over the past 1 day. Pt states that her pain is 10/10, constant, worse with movement, relieved with non movement, radiates down her right leg, worsened with ambulation. AMS notified and upon arrival the patient was found to be in distress and transported to [facility]. Pt seen and evaluated in ED and found to have UTI, Lumbar disc compression, and hypertensive urgency. Pt denies saddle anesthesia, dysuria, incontinence, leg numbness, leg weakness, abdominal pain, productive cough, skin rash, trauma, or recent ill contacts. Pt admitted to PEDRITO unit and treated with steroid therapy, pain control. Ortho consulted in ED and recommend LSO Brace, steroid therapy, pain control and outpatient F/U care. No prior admission for review. All listed medication reconciled at time of admission. Patient was seen by cardiology and also treated for UTI, cultures were un resolving. I discussed with family extensively about outpatient eval by spine surgeon. She was also noted to have a panic episode which resolved with few doses of at roberto. LSO brace was recommended on discharge Conservative management recommended by cardiology on cardiac related diagnosis CT AP IMPRESSION: Bilateral sacral insufficiency fractures are suspected. Please correlate with the patient. Osteopenia and multilevel degenerative change throughout the spine. Kyphoplasty changes at L1 and L4. Sigmoid diverticulosis. Assumed hysterectomy and appendectomy. No acute inflammatory process is appreciated. XRAY: IMPRESSION: Straightening of normal lumbar lordosis but otherwise normal alignment. Vertebroplasty change at L4 and L1 with multilevel wedge compression deformities seen throughout the lumbar spine most significant at L5 and L2 with approximately 50% height loss. No discrete fracture line to suggest an acute abnormality. 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 Atypical Chest pain secondary to costochondritis Acute Cystitis Hypertensive urgency Metabolic Acidosis Acute Respiratory failure Lumbar compression fracture DJD HX of kyphoplasty Chronic Pain syndrome-Patient on chronic opiods Osteoporsis-Continue vitamin D. Will add calcium. Intractable Black pain Debility Disposition: [id number]/[place]-[id number] HOME UND[facility] Time spent for discharge: 35 mins Core Measure Documentation - Palliative Care Palliative Care/ Comfort Measures: Not Applicable - Core Measures Any of the following diagnoses?: none Exam - Physical Exam Narrative exam: VITAL SIGNS: Reviewed. GENERAL: The patient appears normally developed, sitting up on the chair, Vital signs as documented. HEAD: No signs of head trauma. EYES: Pupils are equal. Extraocular motions intact. EARS: Hearing grossly intact. MOUTH: Oropharynx is normal. NECK: No adenopathy, no JVD. CHEST: Chest with clear breath sounds bilaterally. No wheezes, rales, or rhonchi. CARDIAC: Regular rate and rhythm. S1 and S2, without murmurs, gallops, or rubs. VASCULAR: No Edema. Peripheral pulses normal and equal in all extremities. ABDOMEN: Soft, non tender and non distended. No rebound or guarding, and no masses palpated. Bowel Sounds normal. MUSCULOSKELETAL: Good range of motion of all major joints. Tender in the paraspinal area with palpation. Extremities without clubbing, cyanosis or edema. NEUROLOGIC EXAM: Alert and oriented x 3, No focal sensory or strength deficits. Speech normal. Follows commands. PSYCHIATRIC: Mood normal. SKIN: detail exam as documented in skin assessment - Constitutional Vitals: Temp Pulse Resp BP Pulse Ox 98.0 F 76 20 154/68 94 08/30/18 07:37 08/30/18 08:28 08/30/18 08:28 08/30/18 07:37 08/30/18 08:28 Plan Activity: advance as tolerated, fall precautions Diet: low fat Special Instructions: record daily BP diary, physical therapy, occupational therapy Additional Instructions: Follow up with the pain doctor prn Follow up with: Stephanie THAYER MD [Primary Care Provider] - 3-5 Days PENG LIVE MD [Staff Physician] - 7 Days CASEY ORNELAS MD [Staff Physician] - 7 Days Prescriptions: predniSONE [Deltasone] 20 mg PO QDAY #5 tab HYDROcodone/APAP 5-325 5 mg PO Q8HR PRN #14 PRN Reason: Pain, Moderate (4-6) Calc Carb/Vit D 500 mg-200 Uni [Oysco D 500 mg-200 Unit] 2 each PO BID #60 tablet ALPRAZolam [Xanax TAB] 0.25 mg PO Q8H PRN #14 tablet PRN Reason: Anxiety Other Discharge Orders: Occupational Therapy (Amb) Location: None Selected Physicial Therapy (Amb) Location: None Selected
[2018-08-30] MEDS: COZAAR PO SCH (09:07)
[2018-08-30] MEDS: MOBIC PO SCH (09:07)
[2018-08-30] MEDS: SOLU-Medrol IV SCH (09:07)
[2018-08-30] MEDS: NEURONTIN PO SCH (09:08)
[2018-08-30] MEDS: OYSCO D 500 MG-200 UNIT PO SCH (09:08)
[2018-08-30] MEDS: TENORMIN PO SCH (09:08)
[2018-08-30] MEDS: LOVENOX SUB-Q SCH (09:09)
[2018-08-30] MEDS: SODIUM CHLORIDE FLUSH SYRINGE 10 ML IV SCH (09:09)
[2018-08-30] MEDS: VITAMIN D3 PO SCH (09:09)
[2018-08-30] MEDS: ROCEPHIN/NS 1 GM/50 ML 1 GM/50 ML BAG IV SCH (09:09)
--- NOTE | 2018-08-30 10:21 | Progress Note ---
Assessment and Plan Episode of chest pain: Possibly related to hypertensive urgency No acute ECG changes and serial troponins negative. Low back pain Hypertensive urgency: Likely exacerbated by low back pain. Now improved. UTI Recommend: Conservative cardiac management. Once discharged, patient will follow up with her primary check out cashier - Dr James, within 5-7 days. Subjective Date of service: 08/30/18 Interval history: Patient is sitting up in bedside chair. Reports she is feeling better. For planned discharge home today. Objective Vital Signs Temp Pulse Pulse Resp BP BP Pulse Ox 08/30/18 09:08 76 154/68 08/30/18 09:07 76 18 154/68 08/30/18 08:28 76 20 94 08/30/18 07:37 98.0 F 76 20 154/68 94 08/30/18 05:35 68 166/55 08/30/18 02:15 97.4 F L 62 18 166/55 95 08/29/18 21:18 97 08/29/18 20:06 98.1 F 74 18 171/68 93 08/29/18 14:59 98.2 F 70 18 159/56 95 08/29/18 11:48 20 08/29/18 10:48 66 18 144/57 08/29/18 10:46 66 144/57 - Physical Examination General: No Apparent Distress HEENT: Positive: PERRL Neck: Positive: neck supple Cardiac: Positive: Reg Rate and Rhythm Lungs: Positive: Decreased Breath Sounds Neuro: Positive: Weakness Extremities: Absent: edema
== END 2018-08-30 11:44 | disposition home health service (06) | DRG 542 ==
LOC: ED 07:50 → 2B-ACE 15:21
PROVIDERS: ADMIT Internal Medicine; ATTEND Internal Medicine
PROC: 4A033R1 Measurement of Arterial Saturation, Peripheral, Percutaneous Approach (ICD-10-PCS; principal; 2018-08-28)
DX: M48.56XA Collapsed vertebra, not elsewhere classified, lumbar region, initial encounter for fracture (principal); J96.00 Acute respiratory failure, unspecified whether with hypoxia or hypercapnia; E87.2 Acidosis; N30.00 Acute cystitis without hematuria; M48.58XA Collapsed vertebra, not elsewhere classified, sacral and sacrococcygeal region, initial encounter for fracture; M54.31 Sciatica, right side; K57.90 Diverticulosis of intestine, part unspecified, without perforation or abscess without bleeding; M51.36 Other intervertebral disc degeneration, lumbar region; M94.0 Chondrocostal junction syndrome [Tietze]; I16.0 Hypertensive urgency; M54.5 Low back pain; G89.4 Chronic pain syndrome; M81.0 Age-related osteoporosis without current pathological fracture; I10 Essential (primary) hypertension; Z82.49 Family history of ischemic heart disease and other diseases of the circulatory system
CPT/HCPCS: 36415; 36600; 51701; 71045; 72100; 74176; 80048; 80076; 81001; 82550; 82553; 82803; 82962; 83735; 84484; 85007; 85025; 85610; 85730; 87086; 93005; 93010; 94640; 94760; 96361; 96365; 96375; G0378; J0360; J0696; J1100; J1170; J1200; J1650; J1815; J1885; J2270; J2405; J2920; J2930; J3475; J7030

== ENCOUNTER 2018-09-08 21:35 | Inpatient (IN) | payer MEDICARE ==
[2018-09-08] MEDS ORDERED: ZOFRAN IV ONE (22:06)
[2018-09-08] MEDS ORDERED: MORPHINE IV ONE ×2 (22:06→23:53)
[2018-09-08] MEDS ORDERED: NACL 0.9% 500 ML 500 ML IV ONE (22:06)
[2018-09-08] MEDS ORDERED: PEPCID IV ONE (22:06)
--- NOTE | 2018-09-08 22:08 | Emergency Department Report ---
ED General Adult HPI - General Chief complaint: Abdominal Pain Stated complaint: ABD PAIN Time Seen by Provider: 09/08/18 21:48 Source: patient, family, EMS, RN notes reviewed, old records reviewed Mode of arrival: Stretcher Limitations: No Limitations - History of Present Illness Initial comments: Primary care Dr.: Dr Janet James: orthopedics Past medical history: Lumbar pain, sciatica, disability, question dementia, history of hypertension, question urinary tract infection This is an 88-year-old female. This patient is not known to this provider previously. Patient recently admitted to this hospital for back pain, elevated blood pressure, chest pain. Had extensive workup and evaluation while here in the hospital, seen by cardiology. Today, she presents to the ER with a complaint of abdominal pain. The abdominal pain is in the right lower quadrant, epigastric region and right upper quadrant. The patient indicates the pain increases with palpation and decreases with rest. She also complains of chest pain, but when further questioned, indicates the chest pain is in the epigastric and right upper quadrant region. She is nauseous and vomiting. May have dementia, patient seems to be somewhat of a poor historian. Additional history obtained from her daughter. There is no endorsement of trauma, headache, neck pain, urinary symptoms. So far, advanced directives, goals of care have not been clarified as per her daughter, currently, she is a full code. -: Gradual Location: chest, abdomen Radiation: other Quality: other Consistency: other Improves with: other Worsens with: other - Related Data Home Medications Medication Instructions Recorded Confirmed Last Taken Adult One Daily Multivit Tab 1 tab PO QDAY 08/28/18 08/28/18 Unknown Atenolol [Tenormin] 25 mg PO QDAY 08/28/18 08/28/18 Unknown Gabapentin [Neurontin] 200 mg PO BID 08/28/18 08/28/18 Unknown Losartan 100 mg PO QDAY 08/28/18 08/28/18 Unknown Meloxicam 15 mg PO QAM 08/28/18 08/28/18 Unknown Vitamin D (Nf) 1 tab PO QDAY 08/28/18 08/28/18 Unknown Previous Rx's Medication Instructions Recorded Last Taken Type ALPRAZolam [Xanax TAB] 0.25 mg PO Q8H PRN #14 tablet 08/30/18 Unknown Rx Calc Carb/Vit D 500 mg-200 Uni 2 each PO BID #60 tablet 08/30/18 Unknown Rx [Oysco D 500 mg-200 Unit] HYDROcodone/APAP 5-325 5 mg PO Q8HR PRN #14 08/30/18 Unknown Rx predniSONE [Deltasone] 20 mg PO QDAY #5 tab 08/30/18 Unknown Rx Allergies Allergy/AdvReac Type Severity Reaction Status Date / Time No Known Allergies Allergy Verified 09/08/18 14:36 ED Review of Systems ROS: Stated complaint: ABD PAIN Other details as noted in HPI Constitutional: malaise Eyes: denies: eye discharge ENT: denies: congestion Respiratory: denies: cough Cardiovascular: chest pain Gastrointestinal: abdominal pain, nausea, vomiting Musculoskeletal: back pain Neurological: weakness Psychiatric: anxiety ED Past Medical Hx - Past Medical History Previous Medical History?: Yes Hx Hypertension: Yes (X 20 YRS) Hx Heart Attack/AMI: Yes Hx GERD: Yes Hx Sickle Cell Disease: No Hx Dementia: Yes (MILD CONFUSION) Hx HIV: No Additional medical history: Sciatica, UTI, no history of venous thromboembolism - Surgical History Past Surgical History?: Yes Additional Surgical History: lumbar - Social History Smoking Status: Never Smoker Substance Use Type: None - Medications Home Medications: Home Medications Medication Instructions Recorded Confirmed Last Taken Type Adult One Daily Multivit Tab 1 tab PO QDAY 08/28/18 08/28/18 Unknown History Atenolol [Tenormin] 25 mg PO QDAY 08/28/18 08/28/18 Unknown History Gabapentin [Neurontin] 200 mg PO BID 08/28/18 08/28/18 Unknown History Losartan 100 mg PO QDAY 08/28/18 08/28/18 Unknown History Meloxicam 15 mg PO QAM 08/28/18 08/28/18 Unknown History Vitamin D (Nf) 1 tab PO QDAY 08/28/18 08/28/18 Unknown History ALPRAZolam [Xanax TAB] 0.25 mg PO Q8H PRN #14 tablet 08/30/18 Unknown Rx Calc Carb/Vit D 500 mg-200 Uni 2 each PO BID #60 tablet 08/30/18 Unknown Rx [Oysco D 500 mg-200 Unit] HYDROcodone/APAP 5-325 5 mg PO Q8HR PRN #14 08/30/18 Unknown Rx predniSONE [Deltasone] 20 mg PO QDAY #5 tab 08/30/18 Unknown Rx ED Physical Exam - General Limitations: No Limitations General appearance: alert, anxious - Head Head exam: Present: atraumatic, normocephalic - Eye Eye exam: Present: normal appearance - ENT ENT exam: Present: normal exam, normal orophraynx, mucous membranes moist, normal external ear exam - Neck Neck exam: Present: normal inspection - Respiratory Respiratory exam: Present: normal lung sounds bilaterally. Absent: respiratory distress - Cardiovascular Cardiovascular Exam: Present: regular rate, normal rhythm, normal heart sounds. Absent: bradycardia, tachycardia, irregular rhythm, systolic murmur, diastolic murmur, rubs, gallop - GI/Abdominal GI/Abdominal exam: Present: soft, tenderness, other (there is, right flank, epigastric, and right upper quadrant tenderness.). Absent: distended, guarding, rebound, rigid, pulsatile mass - Extremities Exam Extremities exam: Present: normal inspection, full ROM, other (2+ pulses noted in the bilateral upper, lower extremities. Compartments soft. No long bony tenderness. The pelvis is stable.). Absent: calf tenderness - Back Exam Back exam: Present: normal inspection, full ROM. Absent: tenderness, CVA tenderness (R), CVA tenderness (L), paraspinal tenderness, vertebral tenderness - Neurological Exam Neurological exam: Present: alert, other (Extraocular movements intact. Tongue midline. No facial droop. Facial sensation intact to light touch in the V1, V2, V3 distribution bilaterally. 5 and 5 strength in 4 extremities.. Sensation is intact to light touch in 4 extremities.). Absent: motor sensory deficit - Psychiatric Psychiatric exam: Present: anxious - Skin Skin exam: Present: warm, dry, intact, normal color. Absent: rash ED Course Vital Signs 09/08/18 09/08/18 09/08/18 21:53 22:00 22:25 Temperature 97.8 F Pulse Rate 67 74 Respiratory 14 15 14 Rate Blood Pressure 157/58 157/58 Blood Pressure [Left] O2 Sat by Pulse 96 97 96 Oximetry 09/08/18 09/08/18 09/08/18 23:00 23:03 23:53 Temperature 97.9 F Pulse Rate 81 Respiratory 13 16 Rate Blood Pressure 164/44 Blood Pressure [Left] O2 Sat by Pulse 97 Oximetry 09/09/18 09/09/18 09/09/18 00:00 01:00 02:05 Temperature 98.5 F Pulse Rate 86 93 H 89 Respiratory 22 18 19 Rate Blood Pressure 130/45 105/47 Blood Pressure 142/65 [Left] O2 Sat by Pulse 91 97 94 Oximetry - Reevaluation(s) Reevaluation #1: 09/08/18 22:50 Differential diagnosis, including but not limited to, intra-abdominal infection, AAA, perforated viscus, GERD, gastritis, pancreatitis, costochondritis, pulmonary embolism, pneumonia, acute coronary syndrome, aortic disease Assessment and plan: 88-year-old female who appears to be quite uncomfortable, with diffuse abdominal pain and tenderness. She is afebrile with reassuring vital signs. We will treat her pain, symptoms, obtain screening laboratory studies, CT scan of the chest, CT scan of the abdomen and pelvis. We will reassess after her initial data points. Extensive discussion had with daughter regarding goals of care and advanced directives. Reevaluation #2: 09/08/18 23:14 Laboratory studies demonstrate renal insufficiency and leukocytosis. Do not suspect pulmonary embolism at this time, noncontrast CT scan of the abdomen and pelvis ordered, if nondiagnostic, will consider V/Q. Reevaluation #3: 09/09/18 00:01 CT scan shows perforated viscus. This is the most likely etiology for the patient's pain. Her epigastric and right upper quadrant pain is likely referred pain. Additional fluids ordered. Additional pain medication ordered. Antibiotics ordered. Gen. surgery personal development educator paged. Extensive and thorough discussion reassessed with patient's family, discussing goals of care, need for advanced directives, family is deciding what they want to do. Reevaluation #4: 09/09/18 00:08 Case discussed with general surgeon, Dr. Love, we discussed her CT scan findings, physical exam findings, and I have requested emergent general surgical evaluation for suitability. She is coming by to evaluate the patient emergently. The Hospital physician, Dr. Machuca, will admit the patient to the medical service, as per this hospital's protocols. ED Medical Decision Making - Lab Data Result diagrams: 09/08/18 22:08 09/08/18 22:08 Vital Signs 09/08/18 21:53 Temperature 97.8 F Pulse Rate 67 Respiratory 14 Rate Blood Pressure 157/58 O2 Sat by Pulse 96 Oximetry Lab Results 09/08/18 Range/Units 22:08 WBC 14.8 H (4.5-11.0) K/mm3 RBC 4.48 (3.65-5.03) M/mm3 Hgb 13.0 (10.1-14.3) gm/dl Hct 39.4 (30.3-42.9) % MCV 88 (79-97) fl MCH 29 (28-32) pg MCHC 33 (30-34) % RDW 14.3 (13.2-15.2) % Plt Count 254 (140-440) K/mm3 Lymph % (Auto) 15.5 (13.4-35.0) % Nelson % (Auto) 4.3 (0.0-7.3) % Eos % (Auto) 0.3 (0.0-4.3) % Baso % (Auto) 0.1 (0.0-1.8) % Lymph # 2.3 (1.2-5.4) K/mm3 Nelson # 0.6 (0.0-0.8) K/mm3 Eos # 0.0 (0.0-0.4) K/mm3 Baso # 0.0 (0.0-0.1) K/mm3 Seg Neutrophils % 79.8 H (40.0-70.0) % Seg Neutrophils # 11.8 H (1.8-7.7) K/mm3 - EKG Data -: EKG Interpreted by Pa EKG shows normal: sinus rhythm Rate: normal - EKG Data 09/08/18 22:52 This is a sinus rhythm, 76 bpm, left axis deviation, borderline left anterior fascicular block, low voltage, poor R-wave progression, abnormal EKG, not consistent with ST elevation myocardial infarction, appears unchanged from prior EKG from 08/28/2018. - Radiology Data Radiology results: pending, report reviewed, image reviewed Print Report Referring Physician: ROBB PULLIAM Patient Name: KEM BLACKMON Date of : 1930 Sex: Female Report Date: 2018-09-08 Report Status: Finalized Findings [facility] [address] [place] [address] XRay Report Signed Patient: KEM BLACKMON MR#: [id number] : 1930 Acct:[id number] Age/Sex: 88 / F ADM Date: 09/08/18 Loc: ED Attending Dr: Ordering Physician: ROBB PULLIAM MD Date of Service: 09/08/18 Procedure(s): XR abd series w cxr 1V Accession Number(s): [id number] cc: ROBB PULLIAM MD Fluoro Time In Minutes: ABDOMEN 3 VIEW(S) INDICATION / CLINICAL INFORMATION: cp abd pain. COMPARISON: CT dated 08/27/18 FINDINGS: TUBES / LINES: None. BOWEL GAS PATTERN: No significant abnormality. FREE AIR / EXTRALUMINAL GAS: None seen. ADDITIONAL FINDINGS: Vertebroplasty cement at L1 and L4. L2 compression deformity is unchanged. LUNGS: Visualized lungs show no significant abnormality. IMPRESSION: 1. No bowel obstruction or free air. Signer Name: Nazario Pelaez MD Signed: 09/08/2018 11:05 PM Workstation Name: [id number] Transcribed By: DT Dictated By: Malachi Pelaez MD Electronically Authenticated By: Malachi Pelaez MD Signed Date/Time: 09/08/18 2307 Print Report Referring Physician: ROBB PULLIAM Patient Name: KEM BLACKMON Date of : 1930 Sex: Female Report Date: 2018-09-08 Report Status: Finalized Findings [facility] [address] [place] [id number] Cat Scan Report Signed Patient: KEM BLACKMON MR#: [id number] : 1930 Acct:[id number] Age/Sex: 88 / F ADM Date: 09/08/18 Loc: ED Attending Dr: Ordering Physician: ROBB PULLIAM MD Date of Service: 09/08/18 Procedure(s): CT abdomen pelvis wo con Accession Number(s): [id number] cc: ROBB PULLIAM MD CT ABDOMEN AND PELVIS WITHOUT CONTRAST HISTORY: Unspecified abdominal pain. COMPARISON: CT of the abdomen and pelvis without contrast from 08/27/2018. TECHNIQUE: Axial, coronal and sagittal CT imaging of the abdomen and pelvis was performed without contrast. Lack of intravenous contrast limits evaluation of the vascular and solid organs. All CT scans at this location are performed using CT dose reduction for ALARA by means of automated exposure control. FINDINGS: LOWER CHEST: There is mild bibasilar atelectasis without an additional significant abnormality. LIVER: No significant abnormality. BILIARY: No significant abnormality. PANCREAS: No significant abnormality. SPLEEN: No significant abnormality. ADRENALS: No significant abnormality. KIDNEYS AND URETERS: Not seen previously, there are nonobstructive stones at the right ureterovesical junction measuring up to 2 mm. No other stones are seen. The left renal collecting system and ureter are normal in caliber. No suspicious renal lesions are visualized. GI TRACT/PERITONEUM: There is generalized free air along the abdomen and pelvis, most notable in the right upper quadrant anterior to the liver. There is thickening of the distal stomach/first portion of the duodenum with mild surrounding inflammation. No significant abnormality is noted along the remainder of the small bowel. There is sigmoid colonic diverticulosis is without evidence of diverticulitis. No additional significant abnormality of the colon is seen. The appendix is unremarkable. There is a small amount of free fluid along the liver. No fluid collection is seen. LYMPH NODES: No significant adenopathy. VASCULATURE: The aorta is normal in caliber with mild to moderate generalized atherosclerosis. URINARY BLADDER: No significant abnormality. REPRODUCTIVE ORGANS: Prior hysterectomy. No significant abnormality. ADDITIONAL FINDINGS: None. SKELETAL SYSTEM: Bilateral sacral insufficiency fractures are again noted with osteoporosis and generalized degenerative changes of the spine and pelvis. Lumbar kyphoplasty changes are again seen. No new acute fracture is identified. IMPRESSION: 1. Pneumoperitoneum, possibly secondary to a perforated proximal duodenal ulcer. 2. Additional findings as above. CRITICAL RESULT: Radiologist: Dr. Chaves Time of Discovery: 22:50 Time of Communication: 22:55 Licensed Practitioner Receiving Report: Dr. Pulliam Read Back Performed: Yes. Signer Name: Kamlesh Chaves MD Signed: 09/08/2018 11:55 PM Workstation Name: [id number] Transcribed By: HEATHER Dictated By: Kamlesh Chaves MD Electronically Authenticated By: Kamlesh Chaves MD Signed Date/Time: 09/08/18 9577 Critical Care Time: Yes Critical care time in (mins) excluding proc time.: 60 Critical care attestation.: If time is entered above; I have spent that time in minutes in the direct care of this critically ill patient, excluding procedure time. ED Disposition Clinical Impression: ALPESH (acute kidney injury), Abdominal pain, Perforated viscus Disposition: DC-09 OP ADMIT IP TO THIS HOSP Is pt being admited?: Yes Condition: Critical
[2018-09-08 22:50] LABS: Basophils % (Auto) 0.1 % (0.0-1.8); Eosinophils % (Auto) 0.3 % (0.0-4.3); Hematocrit 39.4 % (30.3-42.9); Lymphocytes # (Auto) 2.3 K/mm3 (1.2-5.4); Lymphocytes % (Auto) 15.5 % (13.4-35.0); Mean Corpuscular HGB Conc 33 % (30-34); Mean Corpuscular Volume 88 fl (79-97); Monocytes # (Auto) 0.6 K/mm3 (0.0-0.8); Monocytes % (Auto) 4.3 % (0.0-7.3); Platelet Count 254 K/mm3 (140-440); Red Blood Count 4.48 M/mm3 (3.65-5.03); Red Cell Distribution Width 14.3 % (13.2-15.2)
[2018-09-08 23:03] LABS: Alanine Aminotransferase 13 units/L (7-56); Albumin 3.2 g/dL (3.9-5); BUN/Creatinine Ratio 26; Blood Urea Nitrogen 41 mg/dL (7-17); Calcium 9.8 mg/dL (8.4-10.2); Hemolysis Index 17
--- NOTE | 2018-09-08 23:10 | XRay Report ---
ABDOMEN 3 VIEW(S) INDICATION / CLINICAL INFORMATION: cp abd pain. COMPARISON: CT dated 08/27/18 FINDINGS: TUBES / LINES: None. BOWEL GAS PATTERN: No significant abnormality. FREE AIR / EXTRALUMINAL GAS: None seen. ADDITIONAL FINDINGS: Vertebroplasty cement at L1 and L4. L2 compression deformity is unchanged. LUNGS: Visualized lungs show no significant abnormality. IMPRESSION: 1. No bowel obstruction or free air. Signer Name: Nazario Pelaez MD Signed: 09/08/2018 11:05 PM Workstation Name: [id number]
[2018-09-08] MEDS ORDERED: ZOSYN/NS 4.5GM/100ML 4.5 GM/100 ML VIAL IV ONE (23:55)
[2018-09-08] MEDS ORDERED: FLAGYL 500 MG/100 ML 500 MG/100 ML BAG IV ONE (23:55)
[2018-09-08] MEDS ORDERED: NACL 0.9% 1000 ML 1,000 ML IV ONE (23:55)
--- NOTE | 2018-09-09 | Cat Scan Report ---
CT ABDOMEN AND PELVIS WITHOUT CONTRAST HISTORY: Unspecified abdominal pain. COMPARISON: CT of the abdomen and pelvis without contrast from 08/27/2018. TECHNIQUE: Axial, coronal and sagittal CT imaging of the abdomen and pelvis was performed without co ntrast. Lack of intravenous contrast limits evaluation of the vascular and solid organs. All CT sca ns at this location are performed using CT dose reduction for ALARA by means of automated exposure co ntrol. FINDINGS: LOWER CHEST: There is mild bibasilar atelectasis without an additional significant abnormality. LIVER: No significant abnormality. BILIARY: No significant abnormality. PANCREAS: No significant abnormality. SPLEEN: No significant abnormality. ADRENALS: No significant abnormality. KIDNEYS AND URETERS: Not seen previously, there are nonobstructive stones at the right ureterovesical junction measuring up to 2 mm. No other stones are seen. The left renal collecting system and ureter are normal in caliber. No suspicious renal lesions are visualized. GI TRACT/PERITONEUM: There is generalized free air along the abdomen and pelvis, most notable in the right upper quadrant anterior to the liver. There is thickening of the distal stomach/first portion o f the duodenum with mild surrounding inflammation. No significant abnormality is noted along the janay carmen of the small bowel. There is sigmoid colonic diverticulosis is without evidence of diverticulit is. No additional significant abnormality of the colon is seen. The appendix is unremarkable. There i s a small amount of free fluid along the liver. No fluid collection is seen. LYMPH NODES: No significant adenopathy. VASCULATURE: The aorta is normal in caliber with mild to moderate generalized atherosclerosis. URINARY BLADDER: No significant abnormality. REPRODUCTIVE ORGANS: Prior hysterectomy. No significant abnormality. ADDITIONAL FINDINGS: None. SKELETAL SYSTEM: Bilateral sacral insufficiency fractures are again noted with osteoporosis and gener alized degenerative changes of the spine and pelvis. Lumbar kyphoplasty changes are again seen. No ne w acute fracture is identified. IMPRESSION: 1. Pneumoperitoneum, possibly secondary to a perforated proximal duodenal ulcer. 2. Additional findings as above. CRITICAL RESULT: Radiologist: Dr. Chaves Time of Discovery: 22:50 Time of Communication: 22:55 Licensed Practitioner Receiving Report: Dr. Pulliam Read Back Performed: Yes. Signer Name: Kamlesh Chaves MD Signed: 09/08/2018 11:55 PM Workstation Name: [id number]
[2018-09-09 00:07] LABS: Bilirubin,Urine NEG (Negative); Blood,Urine LG (Negative); Color,Urine Amber (Yellow); Renal Epithelial Cells,Urine 8 /LPF; Urobilinogen,Urine < 2.0 mg/dL (<2.0)
[2018-09-09 00:13] LABS: RBC,Urine > 182.0 /HPF (0.0-6.0); WBC,Urine > 182.0 /HPF (0.0-6.0)
[2018-09-09] MEDS ORDERED: SODIUM CHLORIDE FLUSH SYRINGE 10 ML IV PRN (00:43)
[2018-09-09] MEDS ORDERED: TYLENOL PR PRN (00:43)
[2018-09-09] MEDS ORDERED: ZOFRAN IV PRN ×2 (00:43→02:16)
[2018-09-09] MEDS ORDERED: MORPHINE IV PRN ×2 (00:43→04:07)
--- NOTE | 2018-09-09 00:43 | History and Physical Report ---
History of Present Illness Date of examination: 09/09/18 History of present illness: 88-year-old woman with a history of hypertension, sciatica, osteoporosis, chronic back pain comes to emergency room with complaints of abdominal pain, right upper quadrant which she describes as sharp, constant, intensity 8/10, radiating to the epigastric area. Admits to nausea and vomiting. Patient will schedule for kyphoplasty tomorrow Review of systems Constitutional: no weight loss, chills, fever Ears, eyes, nose, mouth and throat: no nasal congestion, no nasal discharge, no sinus pressure, no vision change, no red eye. Neck: No neck pain or rigidity. Cardiovascular: no palpitations, chest pain Respiratory: no cough, shortness of breath Gastrointestinal: no hematochezia, abdominal pain Genitourinary : no frequency , no hematuria Musculoskeletal: no joint swelling or muscle ache Integumentary: no rash, no pruritis Neurological: no parathesias, no focal weakness Endocrine: no cold or heat intolerance, no polyuria or polydipsia Hematologic/Lymphatic: no easy bruising, no easy bleeding, no gland swelling Allergic/Immunologic: no urticaria, no angioedema. PAST MEDICAL HISTORY:hypertension, sciatica, osteoporosis, chronic back pain PAST SURGICAL HISTORY: Hysterectomy, bilateral knee, kyphoplasty SOCIAL HISTORY: Denies alcohol, drugs, tobacco FAMILY HISTORY: Hypertension Medications and Allergies Allergies Allergy/AdvReac Type Severity Reaction Status Date / Time No Known Allergies Allergy Verified 09/08/18 14:36 Home Medications Medication Instructions Recorded Confirmed Last Taken Type Adult One Daily Multivit Tab 1 tab PO QDAY 08/28/18 09/09/18 Unknown History Atenolol [Tenormin] 25 mg PO QDAY 08/28/18 09/09/18 Unknown History Gabapentin [Neurontin] 200 mg PO BID 08/28/18 09/09/18 Unknown History Losartan 100 mg PO QDAY 08/28/18 09/09/18 Unknown History Meloxicam 15 mg PO QAM 08/28/18 09/09/18 Unknown History Vitamin D (Nf) 1 tab PO QDAY 08/28/18 09/09/18 Unknown History Calc Carb/Vit D 500 mg-200 Uni 2 each PO BID #60 tablet 08/30/18 09/09/18 Unkno wn Rx [Oysco D 500 mg-200 Unit] HYDROcodone/APAP 5-325 5 mg PO Q8HR PRN #14 08/30/18 09/09/18 Unknown Rx ALPRAZolam [Xanax TAB] 0.25 mg PO BID PRN 09/09/18 09/09/18 Unknown History Active Meds: Active Medications Sodium Chloride (Nacl 0.9% 1000 Ml) 1,000 mls @ 999 mls/hr IV BOLUS ONE Stop: 09/09/18 00:55 Last Admin: 09/09/18 00:31 Dose: 999 mls/hr Documented by: Exam - Physical Exam Narrative exam: General Apperance: The patient lying in bed, breathing comfortable HEENT: Normocephalic, atraumatic. Pupils equally round and reactive to light, EOMI, no sclericterus or JVD or thyromegaly or nodule. , no carotid bruit, mucous membranes moist, no exudate or erythema Heart: S1-S2, regular is rhythm Lungs: Clear to auscultation bilaterally, breathing comfortable Abdomen: decrease bowel sounds, soft, tender, nondistended, no organomegaly Extremities: No edema cyanosis clubbing Skin: no rash, nodule, warm and dry Neuro: cranial nerves 2-12 intact, speech is fluent, motor/sensory intact - Constitutional Vitals: Temp Pulse Resp BP Pulse Ox 97.9 F 67 16 157/58 96 09/08/18 23:03 09/08/18 21:53 09/08/18 23:53 09/08/18 21:53 09/08/18 22:25 Results - Labs CBC & Chem 7: 09/09/18 17:09 09/09/18 07:18 Labs: Abnormal lab results 09/08/18 09/08/18 09/08/18 Range/Units 22:08 22:08 23:01 WBC 14.8 H (4.5-11.0) K/mm3 Seg Neutrophils % 79.8 H (40.0-70.0) % Seg Neutrophils # 11.8 H (1.8-7.7) K/mm3 Sodium 134 L (137-145) mmol/L Carbon Dioxide 20 L (22-30) mmol/L BUN 41 H (7-17) mg/dL Creatinine 1.6 H (0.7-1.2) mg/dL Glucose 126 H (65-100) mg/dL Alkaline Phosphatase 131 H (35-129) units/L Total Creatine Kinase 21 L (30-135) units/L Albumin 3.2 L (3.9-5) g/dL Urine WBC (Auto) > 182.0 H (0.0-6.0) /HPF U Epithel Cells (Auto) 60.0 H (0-13.0) /HPF - Imaging and Cardiology CT scan - abdomen: report reviewed CT scan - pelvis: report reviewed Assessment and Plan Assessment Perforated viscus Urinary Tract infection Acute renal insufficiency hypertension sciatica osteoporosis chronic back pain Plan Discussed with family, they will wait until Dr. Love comes to decide on option Start IV fluid, IV Zosyn, IV morphine, follow cultures, consult critical care DVT prophylaxis
[2018-09-09] MEDS ORDERED: NACL 0.45% 1000 ML 1,000 ML IV SCH (01:00)
[2018-09-09] MEDS ORDERED: NACL 0.9% 1000 ML 1,000 ML IV ONE ×2 (01:21→16:08)
--- NOTE | 2018-09-09 01:29 | Consultation ---
History of Present Illness Consult date: 09/09/18 Chief complaint: abdominal pain - History of present illness History of present illness: 88 yo F with acute onset RUQ abdominal pain a few hours ago, severe, sharp, now diffuse. No alleviating or exacerbating factors. She has never had pain like this before. She has chronic low back pain for which she is on narcotic per pain management physician as well as meloxicam which she has been taking for the last 1 month. No f/c. + Nausea, no vomiting. Patient was scheduled for kyphoplasty for this am with Dr. Vizcarra. Past History Past Medical History: hypertension, hyperlipidemia, other (chronic lower back pain) Past Surgical History: hysterectomy Social history: no significant social history Family history: no significant family history Medications and Allergies Allergies Allergy/AdvReac Type Severity Reaction Status Date / Time No Known Allergies Allergy Verified 09/08/18 14:36 Home Medications Medication Instructions Recorded Confirmed Last Taken Type Adult One Daily Multivit Tab 1 tab PO QDAY 08/28/18 08/28/18 Unknown History Atenolol [Tenormin] 25 mg PO QDAY 08/28/18 08/28/18 Unknown History Gabapentin [Neurontin] 200 mg PO BID 08/28/18 08/28/18 Unknown History Losartan 100 mg PO QDAY 08/28/18 08/28/18 Unknown History Meloxicam 15 mg PO QAM 08/28/18 08/28/18 Unknown History Vitamin D (Nf) 1 tab PO QDAY 08/28/18 08/28/18 Unknown History ALPRAZolam [Xanax TAB] 0.25 mg PO Q8H PRN #14 tablet 08/30/18 Unknown Rx Calc Carb/Vit D 500 mg-200 Uni 2 each PO BID #60 tablet 08/30/18 Unknown Rx [Oysco D 500 mg-200 Unit] HYDROcodone/APAP 5-325 5 mg PO Q8HR PRN #14 08/30/18 Unknown Rx predniSONE [Deltasone] 20 mg PO QDAY #5 tab 08/30/18 Unknown Rx Active Meds: Active Medications Acetaminophen (Tylenol) 650 mg [place] Q4H PRN PRN Reason: Pain MILD(1-3)/Fever >100.5/GARRETT Enoxaparin Sodium (Lovenox) 30 mg SUB-Q QDAY RADHA Sodium Chloride (Nacl 0.45% 1000 Ml) 1,000 mls @ 75 mls/hr IV DIRECT RADHA Piperacillin Sod/Tazobactam Sod (Zosyn/Ns 3.375gm/50ml) 3.375 gm in 50 mls @ 100 mls/hr IV Q8HR RADHA Sodium Chloride (Nacl 0.9% 1000 Ml) 1,000 mls @ 999 mls/hr IV BOLUS ONE Stop: 09/09/18 02:21 Morphine Sulfate (Morphine) 1 mg IV Q4H PRN PRN Reason: Pain, Moderate (4-6) Ondansetron HCl (Zofran) 4 mg IV Q4H PRN PRN Reason: Nausea And Vomiting Sodium Chloride (Sodium Chloride Flush Syringe 10 Ml) 10 ml IV BID RADHA Sodium Chloride (Sodium Chloride Flush Syringe 10 Ml) 10 ml IV PRN PRN PRN Reason: LINE FLUSH Review of Systems All systems: negative (10 pt ROS performed and negative except for that listed in HPI) Exam Vital Signs Temp Pulse Resp BP Pulse Ox 97.8 F 67 14 157/58 96 09/08/18 21:53 09/08/18 21:53 09/08/18 21:53 09/08/18 21:53 09/08/18 21:53 Narrative exam: Gen: AAOx3. NAD ENT: no scleral icterus or conjunctival pallor CV: s1, S2+ resp: even and unlabored Abd: soft, distended in upper abdomen, epigastric and RUQ abdominal pain with rebound, guarding. Ext: no c/c/e Results - Labs 09/08/18 22:08 09/08/18 22:08 Abnormal lab results 09/08/18 09/08/18 09/08/18 Range/Units 22:08 22:08 23:01 WBC 14.8 H (4.5-11.0) K/mm3 Seg Neutrophils % 79.8 H (40.0-70.0) % Seg Neutrophils # 11.8 H (1.8-7.7) K/mm3 Sodium 134 L (137-145) mmol/L Carbon Dioxide 20 L (22-30) mmol/L BUN 41 H (7-17) mg/dL Creatinine 1.6 H (0.7-1.2) mg/dL Glucose 126 H (65-100) mg/dL Alkaline Phosphatase 131 H (35-129) units/L Total Creatine Kinase 21 L (30-135) units/L Albumin 3.2 L (3.9-5) g/dL Urine WBC (Auto) > 182.0 H (0.0-6.0) /HPF U Epithel Cells (Auto) 60.0 H (0-13.0) /HPF Diabetes panel 09/08/18 Range/Units 22:08 Sodium 134 L (137-145) mmol/L Potassium 5.0 (3.6-5.0) mmol/L Chloride 99.2 (98-107) mmol/L Carbon Dioxide 20 L (22-30) mmol/L BUN 41 H (7-17) mg/dL Creatinine 1.6 H (0.7-1.2) mg/dL Glucose 126 H (65-100) mg/dL Calcium 9.8 (8.4-10.2) mg/dL AST 17 (5-40) units/L ALT 13 (7-56) units/L Alkaline Phosphatase 131 H (35-129) units/L Total Protein 6.6 (6.3-8.2) g/dL Albumin 3.2 L (3.9-5) g/dL Calcium panel 09/08/18 Range/Units 22:08 Calcium 9.8 (8.4-10.2) mg/dL Albumin 3.2 L (3.9-5) g/dL Pituitary panel 09/08/18 Range/Units 22:08 Sodium 134 L (137-145) mmol/L Potassium 5.0 (3.6-5.0) mmol/L Chloride 99.2 (98-107) mmol/L Carbon Dioxide 20 L (22-30) mmol/L BUN 41 H (7-17) mg/dL Creatinine 1.6 H (0.7-1.2) mg/dL Glucose 126 H (65-100) mg/dL Calcium 9.8 (8.4-10.2) mg/dL Adrenal panel 09/08/18 Range/Units 22:08 Sodium 134 L (137-145) mmol/L Potassium 5.0 (3.6-5.0) mmol/L Chloride 99.2 (98-107) mmol/L Carbon Dioxide 20 L (22-30) mmol/L BUN 41 H (7-17) mg/dL Creatinine 1.6 H (0.7-1.2) mg/dL Glucose 126 H (65-100) mg/dL Calcium 9.8 (8.4-10.2) mg/dL Total Bilirubin 0.20 (0.1-1.2) mg/dL AST 17 (5-40) units/L ALT 13 (7-56) units/L Alkaline Phosphatase 131 H (35-129) units/L Total Protein 6.6 (6.3-8.2) g/dL Albumin 3.2 L (3.9-5) g/dL - Imaging Abdominal x-ray: report reviewed, image reviewed CT scan - abdomen: report reviewed, image reviewed CT scan - pelvis: report reviewed, image reviewed Assessment and Plan 88 yo F with pneumoperitoneum, perforated viscus Plan: 1. NPO 2. IVF - patient getting 1.5 L total of NS in ER 3. prn pain and nausea control 4. IV abx 5. Discussed results of imaging with patient and her family who is at the bedside. The patient's daughter has been designated by the patient to be her medical proxy. I recommend emergent OR for exploratory laparotomy. I discussed all risks, benefits, alternatives to surgery. Questions answered and consent obtained. Dispo: ICU after OR Thank you, please call with questions
[2018-09-09 01:40] LABS: INR 1.06 (0.87-1.13)
--- NOTE | 2018-09-09 02:15 | Anesthesia Consultation ---
Anesthesia Consult and Med Hx Date of service: 09/09/18 - Airway Anesthetic Teeth Evaluation: Good ROM Head & Neck: Adequate Mental/Hyoid Distance: Adequate Mallampati Class: Class II Intubation Access Assessment: Good - Pulmonary Exam CTA: Yes - Cardiac Exam Cardiac Exam: RRR - Pre-Operative Health Status ASA Pre-Surgery Classification: ASA4, Emergency Proposed Anesthetic Plan: General - Pulmonary Hx Smoking: No Hx Sleep Apnea: No (MAHAD PRE SCREEN HIGH RISK) - Cardiovascular System Hx Hypertension: Yes (X 20 YRS) Hx Heart Attack/AMI: Yes Hx Angina: No Hx Valvular Heart Disease: Yes - Central Nervous System Hx Back Pain: Yes (WITH RT LEG PAIN AND NUMBNESS 10/10) Hx Psychiatric Problems: No - Hematic Hx Anemia: No Hx Sickle Cell Disease: No - Other Systems Hx Cancer: No
--- NOTE | 2018-09-09 02:15 | Anesthesia Day of Surgery ---
Anesthesia Day of Surgery - Day of Surgery Patient Examined: Yes Patient H&P Reviewed: Yes Patient is NPO: Yes
[2018-09-09] MEDS ORDERED: NACL 0.9% IR ONE (02:20)
[2018-09-09] MEDS ORDERED: PHENYLEPHRINE/NS Syringe 1,000 MCG/10 ML IV ONE (03:00)
[2018-09-09] MEDS ORDERED: XYLOCAINE MPF 2% ONE (03:00)
[2018-09-09] MEDS ORDERED: DECADRON ONE (03:00)
[2018-09-09] MEDS ORDERED: ZOFRAN ONE (03:00)
--- NOTE | 2018-09-09 04:10 | Post Operative Note ---
Date of procedure: 09/09/18 Pre-op diagnosis: pneumoperitoneum, perforated viscus Post-op diagnosis: other (perforated duodenal ulcer) Findings: 2 cm perforation anterior first portion of duodenum Procedure: exploratory laparotomy, toni patch, peritoneal lavage Anesthesia: VENKATESHA Surgeon: BULL RANGEL [employer] Operator: LEXI WALTERS (cosurgeon) Estimated blood loss: minimal Pathology: none Condition: stable Disposition: PACU
[2018-09-09] MEDS: DILAUDID IV PRN ×4 (04:30→05:20)
[2018-09-09] MEDS ORDERED: ZOSYN/NS 4.5GM/100ML 4.5 GM/100 ML VIAL IV SCH (06:00)
[2018-09-09] MEDS ORDERED: ZOSYN/NS 3.375GM/50ML 3.375 GM/50 ML BAG IV SCH (06:00)
[2018-09-09] MEDS ORDERED: HEPARIN SUB-Q SCH (06:00)
[2018-09-09] MEDS: D5NS 1,000 ML IV SCH ×2 (07:04→22:10)
[2018-09-09 07:36] LABS: Hemoglobin 12.1 gm/dl (10.1-14.3); Mean Corpuscular HGB Conc 33 % (30-34); Mean Corpuscular Volume 89 fl (79-97); Platelet Count 236 K/mm3 (140-440); Red Blood Count 4.16 M/mm3 (3.65-5.03); Red Cell Distribution Width 14.3 % (13.2-15.2)
[2018-09-09 07:52] LABS: Calcium 8.5 mg/dL (8.4-10.2)
[2018-09-09] MEDS ORDERED: LOVENOX SUB-Q SCH (10:00)
[2018-09-09] MEDS: PROTONIX IV SCH ×2 (11:17→22:10)
[2018-09-09] MEDS: SODIUM CHLORIDE FLUSH SYRINGE 10 ML IV SCH (11:18)
--- NOTE | 2018-09-09 11:18 | Post Anesthesia Evaluation ---
- Post Anesthesia Evaluation Patient Participated: Yes Airway Patent: Yes Stable Respiratory Function: Yes Nausea/Vomiting: No Temp > 96.8F: Yes Pain Manageable: Yes Adequeate Hydration: Yes Anesthesia Complications: No Block Receding Appropriately: Not Applicable Patient on Ventilator: No
[2018-09-09 11:26] LABS: Band Neutrophils # (Manual) 0.9 K/mm3; Basophils % (Manual) 0 % (0.0-1.8); Eosinophils % (Manual) 0 % (0.0-4.3); Monocytes % (Manual) 0 % (0.0-7.3); Platelet Estimate Consistent w Auto; RBC Morphology Normal; Total Cells Counted 100
--- NOTE | 2018-09-09 13:13 | Consultation ---
History of Present Illness Consult date: 09/09/18 Requesting physician: GEORGES FREEMAN History of present illness: PULMONARY/CCM CONSULT NOTE (Full dictation # [id number]) Please see dictated notes for full details Past History Past Medical History: hypertension, hyperlipidemia, other (chronic lower back pain) Past Surgical History: hysterectomy Social history: no significant social history Family history: no significant family history Medications and Allergies Allergies Allergy/AdvReac Type Severity Reaction Status Date / Time No Known Allergies Allergy Verified 09/08/18 14:36 Home Medications Medication Instructions Recorded Confirmed Last Taken Type Adult One Daily Multivit Tab 1 tab PO QDAY 08/28/18 08/28/18 Unknown History Atenolol [Tenormin] 25 mg PO QDAY 08/28/18 08/28/18 Unknown History Gabapentin [Neurontin] 200 mg PO BID 08/28/18 08/28/18 Unknown History Losartan 100 mg PO QDAY 08/28/18 08/28/18 Unknown History Meloxicam 15 mg PO QAM 08/28/18 08/28/18 Unknown History Vitamin D (Nf) 1 tab PO QDAY 08/28/18 08/28/18 Unknown History ALPRAZolam [Xanax TAB] 0.25 mg PO Q8H PRN #14 tablet 08/30/18 Unknown Rx Calc Carb/Vit D 500 mg-200 Uni 2 each PO BID #60 tablet 08/30/18 Unknown Rx [Oysco D 500 mg-200 Unit] HYDROcodone/APAP 5-325 5 mg PO Q8HR PRN #14 08/30/18 Unknown Rx predniSONE [Deltasone] 20 mg PO QDAY #5 tab 08/30/18 Unknown Rx Active Meds: Active Medications Acetaminophen (Tylenol) 650 mg [place] Q4H PRN PRN Reason: Pain MILD(1-3)/Fever >100.5/GARRETT Heparin Sodium (Porcine) (Heparin) 5,000 unit SUB-Q Q8HR RADHA Last Admin: 09/09/18 07:03 Dose: 5,000 unit Documented by: Dextrose/Sodium Chloride (D5ns) 1,000 mls @ 100 mls/hr IV DIRECT RADHA Last Admin: 09/09/18 07:04 Dose: 100 mls/hr Documented by: Piperacillin Sod/Tazobactam Sod (Zosyn/Ns 2.25 Gm/50ml) 2.25 gm in 50 mls @ 100 mls/hr IV Q6HR [facility] Morphine Sulfate (Morphine) 2 mg IV Q4H PRN PRN Reason: Pain , Severe (7-10) Ondansetron HCl (Zofran) 4 mg IV Q4H PRN PRN Reason: Nausea And Vomiting Ondansetron HCl (Zofran) 4 mg IV ONCE PRN PRN Reason: Nausea And Vomiting Stop: 09/09/18 23:59 Pantoprazole Sodium (Protonix) 40 mg IV BID [facility] Last Admin: 09/09/18 11:17 Dose: 40 mg Documented by: Sodium Chloride (Sodium Chloride Flush Syringe 10 Ml) 10 ml IV BID [facility] Last Admin: 09/09/18 11:18 Dose: 10 ml Documented by: Sodium Chloride (Sodium Chloride Flush Syringe 10 Ml) 10 ml IV PRN PRN PRN Reason: LINE FLUSH Physical Examination Vital signs: Vital Signs Temp Pulse Resp BP Pulse Ox 97.8 F 67 14 157/58 96 09/08/18 21:53 09/08/18 21:53 09/08/18 21:53 09/08/18 21:53 09/08/18 21:53 Results - Laboratory Findings CBC and BMP: 09/09/18 07:18 09/09/18 07:18 PT/INR, D-dimer PT 13.5 Sec. (12.2-14.9) 09/08/18 23:16 INR 1.06 (0.87-1.13) 09/08/18 23:16 Abnormal lab findings: Abnormal Labs 09/08/18 09/08/18 09/08/18 22:08 22:08 23:01 WBC 14.8 H Seg Neutrophils % 79.8 H Seg Neuts % (Manual) Lymphocytes % (Manual) Seg Neutrophils # 11.8 H Seg Neutrophils # Man Lymphocytes # (Manual) Sodium 134 L Potassium Chloride Carbon Dioxide 20 L BUN 41 H Creatinine 1.6 H Glucose 126 H Alkaline Phosphatase 131 H Total Creatine Kinase 21 L Albumin 3.2 L Urine WBC (Auto) > 182.0 H U Epithel Cells (Auto) 60.0 H 09/09/18 09/09/18 07:18 07:18 WBC 29.7 H Seg Neutrophils % Seg Neuts % (Manual) 96.0 H Lymphocytes % (Manual) 1.0 L Seg Neutrophils # Seg Neutrophils # Man 28.5 H Lymphocytes # (Manual) 0.3 L Sodium 136 L Potassium 5.4 H Chloride 107.1 H Carbon Dioxide 19 L BUN 35 H Creatinine 1.5 H Glucose 113 H Alkaline Phosphatase Total Creatine Kinase Albumin Urine WBC (Auto) U Epithel Cells (Auto)
[2018-09-09] MEDS ORDERED: NACL 0.9% 500 ML 500 ML IV ONE (13:15)
[2018-09-09] MEDS: ZOSYN/NS 2.25 GM/50ML 2.25 GM/50 ML BAG IV SCH ×3 (13:29→23:25)
--- NOTE | 2018-09-09 15:10 | Progress Note ---
Assessment and Plan 88 yo f s/p exploratory laparotomy, toni patch, peritoneal lavage, POD 0 1. sepsis 2. perforated gastric ulcer 3. chronic pain, on NSAIDs 4. UTI Plan: 1. neuro: prn pain control - morphine IV 2. CV: DVT ppx with SQ heparin. AntiHTN meds held due to low BP. Will give 500 cc bolus of NS 3. Resp: IS/pulm toilet when more awake. Wean supplemental O2 as michelle 4. GI: NPO, IVF, PPI BID, NGT to LIWS, Franklin drain to bulb suction. UGI series in 48 hours to evaluate repair 5. : Moran for strict I/Os. Will leave in until tomorrow 6. ID: continue zosyn 7. Musc: SCDs. PT consulted - will evaluate tomorrow 8. Endo: blood glucose q6 9. FEN: check BMP, Mg, Phos in am and replace lytes as needed. c/w NPO, IVF Dispo: ok to downgrade to surgical floor from surgery standpoint D/W Dr. Hugo and Dr. Corona Discussed plan with daughter at bedside. Subjective Date of service: 09/09/18 Narrative: Pt seen and examined. Sleeping comfortably. No overnight events. No acute complaints. Objective Vital Signs - 12hr 09/09/18 09/09/18 09/09/18 04:20 04:25 04:30 Temperature 97.2 F L Pulse Rate 103 H 102 H 96 H Respiratory 20 28 H 18 Rate Blood Pressure 113/65 129/73 127/49 O2 Sat by Pulse 95 94 97 Oximetry 09/09/18 09/09/18 09/09/18 04:40 04:45 05:00 Temperature Pulse Rate 95 H 91 H Respiratory 19 18 20 Rate Blood Pressure 125/47 125/56 O2 Sat by Pulse 94 100 Oximetry 09/09/18 09/09/18 09/09/18 05:12 05:15 05:20 Temperature Pulse Rate 99 H Respiratory 22 17 17 Rate Blood Pressure 136/52 O2 Sat by Pulse 97 Oximetry 09/09/18 09/09/18 09/09/18 05:30 05:40 05:50 Temperature 97.4 F L Pulse Rate 91 H 95 H Respiratory 16 13 16 Rate Blood Pressure 117/51 136/52 O2 Sat by Pulse 97 97 Oximetry 09/09/18 09/09/18 09/09/18 08:00 11:20 12:00 Temperature 99.7 F H 98.5 F Pulse Rate Respiratory 16 Rate Blood Pressure O2 Sat by Pulse 97 97 Oximetry - General physical appearance Narrative Exam: Gen; AAOx3. NAD ENT: NGT with no drainage CV: S1, S2+ resp; even and unlabored Abd: soft, ND, mild TTP near incision. Dressing c/d/i. Franklin drain sero sang. No r/r/g Ext: no c/c/e : moran with dark mary drainage Output NGT- 0cc Franklin: 50 cc/12 hr Moran - 420cc/12hr - Labs 09/09/18 07:18 09/09/18 07:18 Diabetes panel 09/08/18 09/09/18 Range/Units 22:08 07:18 Sodium 134 L 136 L (137-145) mmol/L Potassium 5.0 5.4 H (3.6-5.0) mmol/L Chloride 99.2 107.1 H (98-107) mmol/L Carbon Dioxide 20 L 19 L (22-30) mmol/L BUN 41 H 35 H (7-17) mg/dL Creatinine 1.6 H 1.5 H (0.7-1.2) mg/dL Glucose 126 H 113 H (65-100) mg/dL Calcium 9.8 8.5 (8.4-10.2) mg/dL AST 17 (5-40) units/L ALT 13 (7-56) units/L Alkaline Phosphatase 131 H (35-129) units/L Total Protein 6.6 (6.3-8.2) g/dL Albumin 3.2 L (3.9-5) g/dL Calcium panel 09/08/18 09/09/18 Range/Units 22:08 07:18 Calcium 9.8 8.5 (8.4-10.2) mg/dL Albumin 3.2 L (3.9-5) g/dL Pituitary panel 09/08/18 09/09/18 Range/Units 22:08 07:18 Sodium 134 L 136 L (137-145) mmol/L Potassium 5.0 5.4 H (3.6-5.0) mmol/L Chloride 99.2 107.1 H (98-107) mmol/L Carbon Dioxide 20 L 19 L (22-30) mmol/L BUN 41 H 35 H (7-17) mg/dL Creatinine 1.6 H 1.5 H (0.7-1.2) mg/dL Glucose 126 H 113 H (65-100) mg/dL Calcium 9.8 8.5 (8.4-10.2) mg/dL Adrenal panel 09/08/18 09/09/18 Range/Units 22:08 07:18 Sodium 134 L 136 L (137-145) mmol/L Potassium 5.0 5.4 H (3.6-5.0) mmol/L Chloride 99.2 107.1 H (98-107) mmol/L Carbon Dioxide 20 L 19 L (22-30) mmol/L BUN 41 H 35 H (7-17) mg/dL Creatinine 1.6 H 1.5 H (0.7-1.2) mg/dL Glucose 126 H 113 H (65-100) mg/dL Calcium 9.8 8.5 (8.4-10.2) mg/dL Total Bilirubin 0.20 (0.1-1.2) mg/dL AST 17 (5-40) units/L ALT 13 (7-56) units/L Alkaline Phosphatase 131 H (35-129) units/L Total Protein 6.6 (6.3-8.2) g/dL Albumin 3.2 L (3.9-5) g/dL
--- NOTE | 2018-09-09 15:35 | Operative Report ---
PREOPERATIVE DIAGNOSES: Pneumoperitoneum and perforated viscus. POSTOPERATIVE DIAGNOSIS: Perforated duodenal ulcer. FINDINGS: A 2 cm perforation in the anterior wall of the first portion of duodenum. PROCEDURE: Exploratory laparotomy, David patch and peritoneal lavage, lysis of adhesions. ANESTHESIA: General endotracheal anesthesia. SURGEON: Faye Love DO. CO-SURGEON: Long Anne MD ESTIMATED BLOOD LOSS: 100 mL. IV FLUIDS: 2 liters. URINE OUTPUT: 50 mL. NG TUBE OUTPUT: 0 mL. PATHOLOGY: None. CONDITION DISPOSITION: The patient is stable to PACU. HISTORY OF PRESENT ILLNESS AND INDICATION: The patient is an 88-year-old female with a history of chronic lower back pain, presented to the Emergency Room with complaints of acute onset abdominal pain first localized to the upper abdomen and then became diffuse. The patient was found to have pneumoperitoneum on CT scan of the abdomen and pelvis as well as a leukocytosis. After reviewing all of her pertinent imaging and lab work, the recommendation was to proceed with an exploratory laparotomy. All risks, benefits and alternatives to surgery were discussed with the patient and her family at bedside. Consent was obtained by her daughter who is her medical proxy. PROCEDURE IN DETAIL: The patient was identified in the preoperative area and taken back to the operating room and placed on the operating table in supine position. After anesthesia was induced, Mckeon catheter was sterilely placed by the circulating nurse. The abdomen was then prepped and draped in the usual sterile fashion. Timeout was performed. An upper midline incision was then made using a 15 blade and carried around the umbilicus. Dissection was carried down through skin and subcutaneous tissue using Bovie electrocautery with hemostasis achieved along the way. Once the anterior fascia was encountered, it was scored and the peritoneum then entered bluntly using two gloved fingers. The remaining incision was opened in a cephalad and caudad direction using electrocautery. Upon examination of the upper abdomen, the stomach was identified and the NG tube placed by Anesthesia was palpated in the body of the stomach. The stomach was retracted inferiorly and there was copious gastric content seen in the right upper quadrant below the liver and above the duodenum. A 2 cm hole was identified in the anterior wall of the first portion of the duodenum near the pylorus. Although this area was indurated, the edges appeared healthy and it was decided to perform a David patch repair. Using 3-0 silk pop-off sutures, the perforation was approximated using interrupted 3-0 silk sutures. The tails of the sutures were left in place and the omentum was then mobilized. There were adhesions from the omentum to the anterior abdominal wall in the lower midline and the right lower quadrant due to the patient's previous history of hysterectomy. These were taken down using electrocautery with great care to avoid injury to surrounding structures. Once the entire omentum was mobilized, a tongue of omentum was created and brought up to the area of the repair and in between the tails of the sutures. The omentum was tied down over the repair. The abdomen was then irrigated with a copious amount of saline solution until all the irrigant returned clear. The remaining omentum was checked for hemostasis, was carefully ensured. Once this was complete, the abdomen was then inspected for any foreign objects, which there were none. A 19 F estrellita drain was brought out through a stab incision in the left abdomen and placed over the area of repair. The abdomen was then closed with looped PDS in the usual fashion. The subcutaneous tissue was then irrigated and the skin closed with dameon. At the end of the case, all sponge, instrument and sharp counts were correct x2. The patient remained stable throughout the procedure and she was extubated and taken to PACU in stable condition. JOB# [id number] MARTHA/AMBROSE BUTTERFIELD
[2018-09-09] MEDS ORDERED: NACL 0.9% 1000 ML 1,000 ML ONE (16:07)
--- NOTE | 2018-09-09 16:18 | Event Note ---
Date: 09/09/18 Responded after SBP's noted in 90's MAP's running in 50's X 3 readings she was asleep but easily aroused and appropriate - 500 NS bolus then run at 250/hr X 2 hours - repeat CBC re: ? bleeding - PICC line consult - observe in ICU overnight ... re-evaluate in am & prn
[2018-09-09 17:35] LABS: Hemoglobin 10.4 gm/dl (10.1-14.3); Mean Corpuscular HGB Conc 33 % (30-34); Mean Corpuscular Volume 90 fl (79-97); Platelet Count 196 K/mm3 (140-440); Red Blood Count 3.46 M/mm3 (3.65-5.03); Red Cell Distribution Width 14.5 % (13.2-15.2)
--- NOTE | 2018-09-09 18:39 | Event Note ---
Date: 09/09/18 Patient evaluated Doing well 1. sepsis 2. perforated gastric ulcer 3. chronic pain, on NSAIDs 4. UTI Had David patch IV Fluids IV abx
[2018-09-09 19:00] LABS: Total Cells Counted 100
[2018-09-09 19:01] LABS: Basophils % (Manual) 0 % (0.0-1.8); Eosinophils % (Manual) 0 % (0.0-4.3); RBC Morphology Normal
[2018-09-09] MEDS: HEPARIN SUB-Q SCH (22:10)
[2018-09-10] MEDS: ZOSYN/NS 2.25 GM/50ML 2.25 GM/50 ML BAG IV SCH ×4 (06:08→23:05)
[2018-09-10 08:32] LABS: Hematocrit 29.7 % (30.3-42.9); Hemoglobin 9.9 gm/dl (10.1-14.3); Mean Corpuscular HGB Conc 33 % (30-34); Mean Corpuscular Volume 89 fl (79-97); Platelet Count 185 K/mm3 (140-440); Red Blood Count 3.36 M/mm3 (3.65-5.03); Red Cell Distribution Width 14.8 % (13.2-15.2)
[2018-09-10 08:47] LABS: Albumin 2.2 g/dL (3.9-5); Calcium 8.4 mg/dL (8.4-10.2)
[2018-09-10] MEDS: D5NS 1,000 ML IV SCH (09:30)
--- NOTE | 2018-09-10 09:41 | Progress Note ---
Assessment and Plan 88 yo f s/p exploratory laparotomy, toni patch, peritoneal lavage, POD 1 Acute hypoxic respiratory failure, post op s/p extubation Sepsis Peritonitis/Perforated viscus Acute toxic-metabolic encephalopathy Hyperchloremia Acute renal insufficiency h/o hypertension h/o sciatica h/o osteoporosis Chronic back pain -Supplemental oxygen to keep O2 sast>90% -Incentive spirometry -OOB to chair, PT consult placed -Discontinue moran catheter -Limit narcotic analgeia and avoid benzodiazepines -Maintenance of sleep- wake pattern; avoid delirium -Avoid nephrotoxins, adjust all medications for GFR and CrCl -VTE prophylaxis-heparin -Analgesia -Per Surgery will do an endoscopy in the morning and if it looks realtively normal will disconitnue NGT -Antibiotics, on Zosyn -Stress ulcer prophylaxis -Limit normal saline infusions in view of hyperchloremia and renal insufficiency Discussed extensively with the daughter at the bedside. All her questions were answered. Discussed with RT/RN re goals of care OK to transfer out of the ICU Subjective Date of service: 09/10/18 Interval history: Patient is seen today for: sepsis, peritonitis, acute metabolic encephaloapthy, Seen and examined at bedside; 24hour events reviewed; nursing and respiratory ca re staff consulted; no adverse overnight events reported to me; Vitals, labs, medications, chart reveiwed.No fevers, brief episode of hypotension which responded to a fluid bolus. Did not require any vasopressor support, hemoglobin is relatively stable. No fevers, no vomiting, no diarrhea, denies any chest pain or shortness of breath Daughter is at the bedside. Patient is confused, stating that she had no surgery, everyone is trying to kill her. The lady sitting at the bedside is an imposter and is lying. Objective Vital Signs - 12hr 09/09/18 09/09/18 09/09/18 21:45 22:00 22:15 Temperature Pulse Rate 93 H 96 H 94 H Respiratory 21 24 22 Rate Blood Pressure 105/43 99/46 99/46 O2 Sat by Pulse 98 97 96 Oximetry 09/09/18 09/09/18 09/09/18 22:30 22:45 23:00 Temperature Pulse Rate 90 91 H 91 H Respiratory 26 H 21 19 Rate Blood Pressure 105/46 105/46 94/40 O2 Sat by Pulse 97 97 97 Oximetry 09/09/18 09/09/18 09/09/18 23:15 23:16 23:30 Temperature 98.8 F Pulse Rate 91 H 94 H Respiratory 24 23 Rate Blood Pressure 94/40 109/62 O2 Sat by Pulse 98 99 Oximetry 09/09/18 09/10/18 09/10/18 23:45 00:00 00:15 Temperature Pulse Rate 95 H 92 H 95 H Respiratory 24 23 25 H Rate Blood Pressure 109/62 103/39 103/39 O2 Sat by Pulse 99 98 98 Oximetry 09/10/18 09/10/18 09/10/18 00:30 00:45 01:00 Temperature Pulse Rate 92 H 93 H 94 H Respiratory 22 23 22 Rate Blood Pressure 103/37 103/37 98/41 O2 Sat by Pulse 98 97 97 Oximetry 09/10/18 09/10/18 09/10/18 01:15 01:30 01:45 Temperature Pulse Rate 96 H 92 H 94 H Respiratory 27 H 19 22 Rate Blood Pressure 98/41 114/47 114/47 O2 Sat by Pulse 98 97 99 Oximetry 09/10/18 09/10/18 09/10/18 02:00 02:15 02:30 Temperature Pulse Rate 95 H 95 H 97 H Respiratory 19 23 25 H Rate Blood Pressure 122/45 122/45 127/43 O2 Sat by Pulse 98 99 99 Oximetry 09/10/18 09/10/18 09/10/18 02:45 03:01 03:15 Temperature Pulse Rate 96 H 96 H 96 H Respiratory 22 21 23 Rate Blood Pressure 127/43 107/37 107/37 O2 Sat by Pulse 99 98 98 Oximetry 09/10/18 09/10/18 09/10/18 03:17 03:31 03:45 Temperature 98.4 F Pulse Rate 94 H 101 H Respiratory 24 25 H Rate Blood Pressure 91/37 91/37 O2 Sat by Pulse 98 97 Oximetry 09/10/18 09/10/18 09/10/18 04:00 04:15 04:30 Temperature Pulse Rate 96 H 106 H 96 H Respiratory 26 H 25 H 18 Rate Blood Pressure 101/47 101/47 117/53 O2 Sat by Pulse 98 97 98 Oximetry 09/10/18 09/10/18 09/10/18 04:45 05:00 05:15 Temperature Pulse Rate 98 H 101 H 102 H Respiratory 22 23 27 H Rate Blood Pressure 117/53 128/56 128/56 O2 Sat by Pulse 98 99 98 Oximetry 09/10/18 09/10/18 09/10/18 05:30 05:45 06:00 Temperature Pulse Rate 99 H 103 H 104 H Respiratory 19 22 28 H Rate Blood Pressure 115/45 115/45 119/53 O2 Sat by Pulse 99 98 99 Oximetry 09/10/18 09/10/18 09/10/18 06:15 06:31 06:45 Temperature Pulse Rate 101 H 104 H 101 H Respiratory 24 27 H 24 Rate Blood Pressure 119/53 114/73 114/73 O2 Sat by Pulse 99 97 98 Oximetry 09/10/18 09/10/18 09/10/18 07:00 07:15 07:31 Temperature Pulse Rate 99 H 97 H 101 H Respiratory 25 H 25 H 27 H Rate Blood Pressure 118/44 118/44 133/49 O2 Sat by Pulse 98 98 98 Oximetry 09/10/18 09/10/18 09/10/18 07:45 08:00 08:15 Temperature 97.5 F L Pulse Rate 100 H 99 H 98 H Respiratory 25 H 21 27 H Rate Blood Pressure 133/49 123/50 123/50 O2 Sat by Pulse 99 98 98 Oximetry 09/10/18 09/10/18 09/10/18 08:21 08:30 08:45 Temperature Pulse Rate 98 H 96 H Respiratory 22 23 Rate Blood Pressure 140/57 140/57 O2 Sat by Pulse 98 98 98 Oximetry 09/10/18 09/10/18 09:00 09:15 Temperature Pulse Rate 97 H 97 H Respiratory 29 H 26 H Rate Blood Pressure 128/53 128/53 O2 Sat by Pulse 98 98 Oximetry Constitutional: no acute distress, alert, other (on 2L nC, resting peacefully in bed) Eyes: non-icteric ENT: oropharynx moist, other (NGT in place) Neck: supple, no JVD, other (short neck with large neck circumference) Effort: normal Ascultation: Bilateral: diminished breath sounds (at the bases) Cardiovascular: regular rate and rhythm, other (S1,S2, no murmurs, gallops or rubs) Gastrointestinal: absent bowel sounds, tender (mildly), non-distended, other (BETTY drain in place) Integumentary: normal Extremities: no cyanosis, no edema, pink and warm, no ischemia or petechiae Neurologic: non-focal exam, pupils equal and round, other (obesy one step command, delirium) Psychiatric: affect normal CBC and BMP: 09/10/18 08:08 09/10/18 08:08 ABG, PT/INR, D-dimer: PT/INR, D-dimer PT 13.5 Sec. (12.2-14.9) 09/08/18 23:16 INR 1.06 (0.87-1.13) 09/08/18 23:16 Abnormal lab findings: Abnormal Labs 09/08/18 09/08/18 09/08/18 22:08 22:08 23:01 WBC 14.8 H RBC Hgb Hct Seg Neutrophils % 79.8 H Seg Neuts % (Manual) Lymphocytes % (Manual) Seg Neutrophils # 11.8 H Seg Neutrophils # Man Lymphocytes # (Manual) Sodium 134 L Potassium Chloride Carbon Dioxide 20 L BUN 41 H Creatinine 1.6 H Glucose 126 H Alkaline Phosphatase 131 H Total Creatine Kinase 21 L Total Protein Albumin 3.2 L Urine WBC (Auto) > 182.0 H U Epithel Cells (Auto) 60.0 H 09/09/18 09/09/18 09/09/18 07:18 07:18 17:09 WBC 29.7 H 22.6 H RBC 3.46 L Hgb Hct Seg Neutrophils % Seg Neuts % (Manual) 96.0 H 94.0 H Lymphocytes % (Manual) 1.0 L 3.0 L Seg Neutrophils # Seg Neutrophils # Man 28.5 H 21.2 H Lymphocytes # (Manual) 0.3 L 0.7 L Sodium 136 L Potassium 5.4 H Chloride 107.1 H Carbon Dioxide 19 L BUN 35 H Creatinine 1.5 H Glucose 113 H Alkaline Phosphatase Total Creatine Kinase Total Protein Albumin Urine WBC (Auto) U Epithel Cells (Auto) 09/10/18 09/10/18 08:08 08:08 WBC 18.6 H RBC 3.36 L Hgb 9.9 L Hct 29.7 L Seg Neutrophils % Seg Neuts % (Manual) Lymphocytes % (Manual) Seg Neutrophils # Seg Neutrophils # Man Lymphocytes # (Manual) Sodium Potassium Chloride 114.7 H Carbon Dioxide 17 L BUN 30 H Creatinine 1.3 H Glucose 148 H Alkaline Phosphatase Total Creatine Kinase Total Protein 5.1 L D Albumin 2.2 L Urine WBC (Auto) U Epithel Cells (Auto) Allied health notes reviewed: nursing
--- NOTE | 2018-09-10 10:31 | Progress Note ---
Assessment and Plan 88 yo f s/p exploratory laparotomy, toni patch, peritoneal lavage, POD 1 1. sepsis 2. perforated gastric ulcer 3. chronic pain, on NSAIDs 4. UTI Plan: 1. neuro: prn pain control - morphine IV 2. CV: DVT ppx with SQ heparin. BP improved 3. Resp: IS/pulm toilet when more awake. Wean supplemental O2 as michelle 4. GI: NPO, IVF, PPI BID, NGT to LIWS, Betty drain to bulb suction. UGI series in 24-48 hours to evaluate repair 5. : DC moran 6. ID: continue zosyn 7. [facility] [place]. PT consulted - may get patient OOB today 8. Endo: blood glucose q6 9. FEN: check BMP, Mg, Phos daily while NPO and replace lytes as needed. c/w NPO, IVF - changed to maintenance BP improved with fluids, ok to downgrade to surgical floor from surgery standpoint Discussed plan with daughter at bedside. Subjective Date of service: 09/10/18 Narrative: Pt seen and examined. More awake today. c/o back pain. No abd pain, f/c, cp, sob, n/v. Objective Vital Signs - 12hr 09/09/18 09/09/18 09/09/18 22:30 22:45 23:00 Temperature Pulse Rate 90 91 H 91 H Pulse Rate [ From Monitor] Respiratory 26 H 21 19 Rate Respiratory Rate [Abdomen] Blood Pressure 105/46 105/46 94/40 O2 Sat by Pulse 97 97 97 Oximetry 09/09/18 09/09/18 09/09/18 23:15 23:16 23:30 Temperature 98.8 F Pulse Rate 91 H 94 H Pulse Rate [ From Monitor] Respiratory 24 23 Rate Respiratory Rate [Abdomen] Blood Pressure 94/40 109/62 O2 Sat by Pulse 98 99 Oximetry 09/09/18 09/10/18 09/10/18 23:45 00:00 00:15 Temperature Pulse Rate 95 H 92 H 95 H Pulse Rate [ From Monitor] Respiratory 24 23 25 H Rate Respiratory Rate [Abdomen] Blood Pressure 109/62 103/39 103/39 O2 Sat by Pulse 99 98 98 Oximetry 09/10/18 09/10/18 09/10/18 00:30 00:45 01:00 Temperature Pulse Rate 92 H 93 H 94 H Pulse Rate [ From Monitor] Respiratory 22 23 22 Rate Respiratory Rate [Abdomen] Blood Pressure 103/37 103/37 98/41 O2 Sat by Pulse 98 97 97 Oximetry 09/10/18 09/10/18 09/10/18 01:15 01:30 01:45 Temperature Pulse Rate 96 H 92 H 94 H Pulse Rate [ From Monitor] Respiratory 27 H 19 22 Rate Respiratory Rate [Abdomen] Blood Pressure 98/41 114/47 114/47 O2 Sat by Pulse 98 97 99 Oximetry 09/10/18 09/10/18 09/10/18 02:00 02:15 02:30 Temperature Pulse Rate 95 H 95 H 97 H Pulse Rate [ From Monitor] Respiratory 19 23 25 H Rate Respiratory Rate [Abdomen] Blood Pressure 122/45 122/45 127/43 O2 Sat by Pulse 98 99 99 Oximetry 09/10/18 09/10/18 09/10/18 02:45 03:01 03:15 Temperature Pulse Rate 96 H 96 H 96 H Pulse Rate [ From Monitor] Respiratory 21 23 Rate Respiratory Rate [Abdomen] Blood Pressure 127/43 107/37 107/37 O2 Sat by Pulse 99 98 98 Oximetry 09/10/18 09/10/18 09/10/18 03:17 03:31 03:45 Temperature 98.4 F Pulse Rate 94 H 101 H Pulse Rate [ From Monitor] Respiratory 24 25 H Rate Respiratory Rate [Abdomen] Blood Pressure 91/37 91/37 O2 Sat by Pulse 98 97 Oximetry 09/10/18 09/10/18 09/10/18 04:00 04:15 04:30 Temperature Pulse Rate 96 H 106 H 96 H Pulse Rate [ From Monitor] Respiratory 26 H 25 H 18 Rate Respiratory Rate [Abdomen] Blood Pressure 101/47 101/47 117/53 O2 Sat by Pulse 98 97 98 Oximetry 09/10/18 09/10/18 09/10/18 04:45 05:00 05:15 Temperature Pulse Rate 98 H 101 H 102 H Pulse Rate [ From Monitor] Respiratory 22 23 27 H Rate Respiratory Rate [Abdomen] Blood Pressure 117/53 128/56 128/56 O2 Sat by Pulse 98 99 98 Oximetry 09/10/18 09/10/18 09/10/18 05:30 05:45 06:00 Temperature Pulse Rate 99 H 103 H 104 H Pulse Rate [ From Monitor] Respiratory 19 22 28 H Rate Respiratory Rate [Abdomen] Blood Pressure 115/45 115/45 119/53 O2 Sat by Pulse 99 98 99 Oximetry 09/10/18 09/10/18 09/10/18 06:15 06:31 06:45 Temperature Pulse Rate 101 H 104 H 101 H Pulse Rate [ From Monitor] Respiratory 24 27 H 24 Rate Respiratory Rate [Abdomen] Blood Pressure 119/53 114/73 114/73 O2 Sat by Pulse 99 97 98 Oximetry 09/10/18 09/10/18 09/10/18 07:00 07:15 07:31 Temperature Pulse Rate 99 H 97 H 101 H Pulse Rate [ From Monitor] Respiratory 25 H 25 H 27 H Rate Respiratory Rate [Abdomen] Blood Pressure 118/44 118/44 133/49 O2 Sat by Pulse 98 98 98 Oximetry 09/10/18 09/10/18 09/10/18 07:45 08:00 08:15 Temperature 97.5 F L Pulse Rate 100 H 99 H 98 H Pulse Rate [ 95 H From Monitor] Respiratory 25 H 21 27 H Rate Respiratory Rate [Abdomen] Blood Pressure 133/49 123/50 123/50 O2 Sat by Pulse 99 97 98 Oximetry 09/10/18 09/10/18 09/10/18 08:21 08:30 08:45 Temperature Pulse Rate 98 H 96 H Pulse Rate [ From Monitor] Respiratory 22 23 Rate Respiratory Rate [Abdomen] Blood Pressure 140/57 140/57 O2 Sat by Pulse 98 98 98 Oximetry 09/10/18 09/10/18 09/10/18 09:00 09:15 09:30 Temperature Pulse Rate 97 H 97 H 97 H Pulse Rate [ From Monitor] Respiratory 29 H 26 H 25 H Rate Respiratory Rate [Abdomen] Blood Pressure 128/53 128/53 129/58 O2 Sat by Pulse 98 98 99 Oximetry 09/10/18 09/10/18 09/10/18 09:45 10:00 10:15 Temperature Pulse Rate 97 H 97 H 96 H Pulse Rate [ 99 H From Monitor] Respiratory 35 H 30 H 28 H Rate Respiratory 33 H Rate [Abdomen] Blood Pressure 128/53 128/52 129/58 O2 Sat by Pulse 97 98 99 Oximetry - General physical appearance Narrative Exam: Gen: AAOx3. NAD ENT; NGT with scant dark brown drainage CV: s1, S2+ Resp; even and unlabored Abd: soft, NT, ND. Dressing c/d/i. BETTY serosang Ext: no c/c/e : moran with dark yellow urine and some sediment - Labs 09/10/18 08:08 09/10/18 08:08 Diabetes panel 09/10/18 Range/Units 08:08 Sodium 141 (137-145) mmol/L Potassium 4.8 (3.6-5.0) mmol/L Chloride 114.7 H (98-107) mmol/L Carbon Dioxide 17 L (22-30) mmol/L BUN 30 H (7-17) mg/dL Creatinine 1.3 H (0.7-1.2) mg/dL Glucose 148 H (65-100) mg/dL Calcium 8.4 (8.4-10.2) mg/dL AST 22 (5-40) units/L ALT 27 (7-56) units/L Alkaline Phosphatase 83 (35-129) units/L Total Protein 5.1 L D (6.3-8.2) g/dL Albumin 2.2 L (3.9-5) g/dL Calcium panel 09/10/18 Range/Units 08:08 Calcium 8.4 (8.4-10.2) mg/dL Albumin 2.2 L (3.9-5) g/dL Pituitary panel 09/10/18 Range/Units 08:08 Sodium 141 (137-145) mmol/L Potassium 4.8 (3.6-5.0) mmol/L Chloride 114.7 H (98-107) mmol/L Carbon Dioxide 17 L (22-30) mmol/L BUN 30 H (7-17) mg/dL Creatinine 1.3 H (0.7-1.2) mg/dL Glucose 148 H (65-100) mg/dL Calcium 8.4 (8.4-10.2) mg/dL Adrenal panel 09/10/18 Range/Units 08:08 Sodium 141 (137-145) mmol/L Potassium 4.8 (3.6-5.0) mmol/L Chloride 114.7 H (98-107) mmol/L Carbon Dioxide 17 L (22-30) mmol/L BUN 30 H (7-17) mg/dL Creatinine 1.3 H (0.7-1.2) mg/dL Glucose 148 H (65-100) mg/dL Calcium 8.4 (8.4-10.2) mg/dL Total Bilirubin 0.20 (0.1-1.2) mg/dL AST 22 (5-40) units/L ALT 27 (7-56) units/L Alkaline Phosphatase 83 (35-129) units/L Total Protein 5.1 L D (6.3-8.2) g/dL Albumin 2.2 L (3.9-5) g/dL
[2018-09-10] MEDS: PROTONIX IV SCH ×2 (10:35→21:00)
[2018-09-10] MEDS: HEPARIN SUB-Q SCH ×2 (10:35→21:00)
[2018-09-10] MEDS: SODIUM CHLORIDE FLUSH SYRINGE 10 ML IV SCH ×3 (10:35→21:00)
[2018-09-10] MEDS: D5/0.45NS 1,000 ML IV SCH (10:39)
[2018-09-10 11:01] LABS: Basophils % (Manual) 0 % (0.0-1.8); Eosinophils % (Manual) 0 % (0.0-4.3); Total Cells Counted 100
[2018-09-10 11:02] LABS: Platelet Estimate Consistent w Auto; RBC Morphology Normal
--- NOTE | 2018-09-10 13:24 | Consultation ---
PULMONARY CRITICAL CARE CONSULTATION CONSULTING PHYSICIAN: Dr. Shruthi Machuca. REASON FOR CONSULTATION: Critical care evaluation, status post emergent surgery for perforated bowel. CHIEF COMPLAINT AND HISTORY OF PRESENT ILLNESS: The patient is a, now 88-year-old female with past medical history, as far as we can tell, significant for hypertension and mild dementia, who came into the ER complaining of an acute-onset abdominal pain. It was in the right lower quadrant and epigastric as well as right upper quadrant, essentially on the right side. It increased with palpation and decreases with rest. She complained of some chest pain, but this was deemed to be mostly epigastric. She denied any trauma. They do mention that she had had some symptoms with belching and gas production over the past few days. She was evaluated in the Emergency Room. As part of the evaluation, I believe, a CT scan was done of the abdomen and pelvis. She was found to have perforated viscus and an acute kidney injury and was taken emergently into the OR. After volume resuscitation in the OR, she was found to have a 2-cm perforation to the anterior first portion of the duodenum and a David patch peritoneal lavage was done. Postop, she was brought into the Intensive Care Unit for close observation, especially considering her age and comorbidities, did well overnight. When I stopped by to see her, she was resting in bed, little soft spoken, still with some abdominal pain that was worse with deep breathing, so she was shallow breathing. She denied any nausea, vomiting, no fevers or chills. The patient is described as a never smoker. This really is as much of the history of presentation as I have. PAST MEDICAL HISTORY: Hypertension, sciatica, osteoporosis, chronic back pain and she is obese. PAST SURGICAL HISTORY: She has had a hysterectomy, bilateral knee surgery and kyphoplasty. MEDICATIONS: She was on at the time I stopped by to see were reviewed. Pertinent medications included the following: Tylenol 650 mg per rectum q.4 hours p.r.n. mild pain or fevers, D5 NS was going at 100 mL per hour, heparin 5000 units subcutaneously q.8 hours, morphine sulfate 2 mg IV q.4 hours p.r.n. severe pain, Zofran 4 mg IV q.4 hours p.r.n. nausea and vomiting, Protonix 40 mg IV b.i.d., Zosyn 2.25 g IV q.6 hours. ALLERGIES: No known drug allergies. DIET: She is an obese lady. Family denies significant weight changes in the preceding few weeks to months. FAMILY AND SOCIAL HISTORY: Lives in the community. Denies alcohol, tobacco, or illicit drug use or abuse. There is a family history of hypertension. Family history otherwise noncontributory. REVIEW OF SYSTEMS: No loss of consciousness. No new-onset seizures. No new-onset focal weakness. No gross hematochezia or melena. She has had abdominal pain, belching and gas production. Denies gross hematuria. No hematemesis. No hemoptysis. Denies palpitations. Denies polydipsia, polyuria. Denied heat or cold intolerance. No new rashes or lesions on her body. Complete 13-system review of system was obtained. Pertinent positives and/or negatives as in body of the history above, otherwise noncontributory. PHYSICAL EXAMINATION: VITAL SIGNS: At presentation, she was afebrile, temperature 97.8 degrees Fahrenheit with a pulse of 67, respiratory rate of 14, blood pressure 157/58, O2 sats were 96%, inspired oxygen concentration was not recorded. When I stopped by to see her though, her O2 sats were 98% and that was on 2 liters nasal cannula. GENERAL: Elderly looking female, normocephalic, atraumatic, talking to me with mildly increased respiratory effort at rest. HEAD, EYES, EARS, NOSE AND THROAT: She is anicteric. No conjunctival erythema. Oropharynx is dry. It is a Mallampati #2 oropharynx. No thyromegaly, no gross jugular venous distention. Grossly, no palpable lymph nodes in the supraclavicular or submandibular lymph node chains. LUNGS: Auscultation of both lung garcia significant only for diminished bilateral breath sounds, but clear bilaterally, no wheezing. HEART: Heart sounds 1 and 2 were heard at the time of my evaluation, regular rate and rhythm without overt rubs or murmurs. ABDOMEN: Soft, full, tender over the right side, on postop site. Bowel sounds are positive, but hypoactive. No palpable hepatosplenomegaly. EXTREMITIES: Without overt digital clubbing or cyanosis. No pedal edema. Pedal pulses are 2+ bilaterally. NEUROLOGIC: Pupils equal, round, about 4 mm, reactive to light. Extraocular muscle movements appeared intact. She moves all 4 extremities spontaneously. SKIN: The skin is of normal turgor. No cellulitis, no rash. She has the postop scars. PSYCHIATRIC: Her mood is normal, but her affect was flat at the time of my evaluation. LABORATORY DATA: From my review are as follows: At presentation, white count 14,800, hemoglobin was 13.0, hematocrit 39.4, platelet count 254. No significant band forms reported. INR 1.06. Serum sodium was 134, potassium 5.0, chloride 99, bicarbonate 20, BUN 41, creatinine 1.6, glucose was 126. Liver function tests otherwise within normal limits. Troponin within normal limits. Albumin was low at 3.2. Urinalysis shows large blood, moderate leukocyte esterase, and greater than 182 white cells per high power field. Two sets of blood cultures have been sent, no growth to date. Chest x-ray was done. I have reviewed it, clear chest x-ray, no focal infiltrates, no cardiomegaly. The KUB at presentation just appeared to show stool-filled bowel. The CT of the abdomen and pelvis did show pneumoperitoneum, possibly secondary to perforated proximal duodenal ulcer. ASSESSMENT AND PLAN: 1. Perforated bowel, status post exploratory laparotomy and repair. 2. Acute hypoxemic respiratory failure. 3. Abdominal pain due to #1 above. 4. Leukocytosis. 5. Mild metabolic acidosis. 6. Acute kidney injury. 7. Hypertension. 8. History of gastroesophageal reflux disease. 9. History of dementia. 10. Sciatica. 11. Urinary tract infection. 12. Obesity. PLAN: She is doing much better. Clinically, the surgeon is happy with her progress and the ultimate plan will be to transfer her to the surgical floor today. I will send urine for cultures. We will continue empiric Zosyn therapy for now. Infectious Disease consultation will be at the behest of the attending physician. Aspiration precautions will be maintained. She remains n.p.o. for now. Oxygen will be weaned to keep sats greater than or equal to about 90%. We will discontinue her Mckeon catheter now. I am going to reduce her heparin to q.12 dosing, the subcutaneous heparin. She is appropriately on GI and DVT prophylaxis. Flu and pneumonia vaccination will be addressed per protocol. Thank you very much for the consult, Dr. Machuca. We will follow along. We will make further recommendations as picture progresses/becomes clearer. I have taken the time to explain the care plan to the patient and her family in the room. JOB# [id number] ИРИНА/AMBROSE
--- NOTE | 2018-09-10 18:25 | Progress Note ---
Assessment and Plan (1) Perforated duodenal ulcer Current Visit: Yes Status: Acute Plan to address problem: POD#3 s/p ex lap with grahm patch repair of perforated duodenal ulcer. stable with down trending wbc, afebrile. agitation likely due to hx of dementia, and . UGI ordered and scheduled to be performed thursday. If negative will start on clear liquids. On Protonix (2) SIRS (systemic inflammatory response syndrome) Current Visit: Yes Status: Acute Plan to address problem: On Zosyn wbc trending down (3) HTN (hypertension) Current Visit: Yes Status: Chronic Qualifiers: Hypertension type: essential hypertension Qualified Code(s): I10 - Essential (primary) hypertension Plan to address problem: IV Lopressor pRn Resume losartan 100 qd from tomorrow (4) TAYLOR (generalized anxiety disorder) Current Visit: Yes Status: Chronic Plan to address problem: Ativan prn (5) DVT prophylaxis Current Visit: No Status: Acute Plan to address problem: On Scd's and GI prophylaxis Subjective Date of service: 09/10/18 Principal diagnosis: Pergorated DU Interval history: POD#1 s/p ex lap with toni patch repair of perforated duodenal ulcer. stable with down trending wbc, afebrile. agitation likely due to hx of dementia, and . UGI ordered and scheduled to be performed Thursday. If negative will start on cl ear liquids. Objective - Constitutional Vitals: Vital Signs - 12hr 09/10/18 09/10/18 09/10/18 06:31 06:45 07:00 Temperature Pulse Rate 104 H 101 H 99 H Pulse Rate [ From Monitor] Respiratory 27 H 24 25 H Rate Respiratory Rate [Abdomen] Blood Pressure 114/73 114/73 118/44 O2 Sat by Pulse 97 98 98 Oximetry 09/10/18 09/10/18 09/10/18 07:15 07:31 07:45 Temperature Pulse Rate 97 H 101 H 100 H Pulse Rate [ From Monitor] Respiratory 25 H 27 H 25 H Rate Respiratory Rate [Abdomen] Blood Pressure 118/44 133/49 133/49 O2 Sat by Pulse 98 98 99 Oximetry 09/10/18 09/10/18 09/10/18 08:00 08:15 08:21 Temperature 97.5 F L Pulse Rate 99 H 98 H Pulse Rate [ 95 H From Monitor] Respiratory 21 27 H Rate Respiratory Rate [Abdomen] Blood Pressure 123/50 123/50 O2 Sat by Pulse 97 98 98 Oximetry 09/10/18 09/10/18 09/10/18 08:30 08:45 09:00 Temperature Pulse Rate 98 H 96 H 97 H Pulse Rate [ From Monitor] Respiratory 22 23 29 H Rate Respiratory Rate [Abdomen] Blood Pressure 140/57 140/57 128/53 O2 Sat by Pulse 98 98 98 Oximetry 09/10/18 09/10/18 09/10/18 09:15 09:30 09:45 Temperature Pulse Rate 97 H 97 H 97 H Pulse Rate [ From Monitor] Respiratory 26 H 25 H 35 H Rate Respiratory Rate [Abdomen] Blood Pressure 128/53 129/58 128/53 O2 Sat by Pulse 98 99 97 Oximetry 09/10/18 09/10/18 09/10/18 10:00 10:15 10:30 Temperature Pulse Rate 97 H 96 H 98 H Pulse Rate [ 99 H From Monitor] Respiratory 30 H 28 H 34 H Rate Respiratory 33 H Rate [Abdomen] Blood Pressure 128/52 129/58 140/59 O2 Sat by Pulse 98 99 96 Oximetry 09/10/18 09/10/18 09/10/18 10:45 11:00 11:15 Temperature Pulse Rate 95 H 92 H 100 H Pulse Rate [ From Monitor] Respiratory 23 28 H 19 Rate Respiratory Rate [Abdomen] Blood Pressure 128/52 118/47 140/59 O2 Sat by Pulse 96 96 97 Oximetry 09/10/18 09/10/18 09/10/18 11:31 11:45 12:00 Temperature 98.4 F Pulse Rate 95 H 94 H 94 H Pulse Rate [ 96 H From Monitor] Respiratory 28 H 31 H 26 H Rate Respiratory Rate [Abdomen] Blood Pressure 136/50 136/50 132/49 O2 Sat by Pulse 97 98 97 Oximetry 09/10/18 09/10/18 09/10/18 12:15 12:30 12:45 Temperature Pulse Rate 100 H 94 H 95 H Pulse Rate [ From Monitor] Respiratory 31 H 33 H 24 Rate Respiratory Rate [Abdomen] Blood Pressure 132/49 131/42 132/49 O2 Sat by Pulse 97 97 98 Oximetry 09/10/18 09/10/18 09/10/18 13:00 13:15 13:31 Temperature Pulse Rate 101 H 97 H 98 H Pulse Rate [ From Monitor] Respiratory 27 H 34 H 36 H Rate Respiratory Rate [Abdomen] Blood Pressure 137/57 137/57 125/41 O2 Sat by Pulse 98 97 97 Oximetry 09/10/18 09/10/18 09/10/18 13:45 14:00 14:15 Temperature Pulse Rate 102 H 103 H 103 H Pulse Rate [ 103 H From Monitor] Respiratory 28 H 27 H 32 H Rate Respiratory Rate [Abdomen] Blood Pressure 137/57 142/51 125/41 O2 Sat by Pulse 97 97 96 Oximetry 09/10/18 09/10/18 09/10/18 14:30 14:45 15:00 Temperature Pulse Rate 99 H 98 H 101 H Pulse Rate [ From Monitor] Respiratory 28 H 31 H 26 H Rate Respiratory Rate [Abdomen] Blood Pressure 137/53 142/51 134/50 O2 Sat by Pulse 96 96 96 Oximetry 09/10/18 09/10/18 09/10/18 15:15 15:30 15:45 Temperature Pulse Rate 108 H 103 H 104 H Pulse Rate [ From Monitor] Respiratory 33 H 32 H 26 H Rate Respiratory Rate [Abdomen] Blood Pressure 134/50 156/59 134/50 O2 Sat by Pulse 98 96 98 Oximetry 09/10/18 09/10/18 09/10/18 16:00 16:15 16:30 Temperature 98.0 F Pulse Rate 106 H 106 H 106 H Pulse Rate [ 103 H From Monitor] Respiratory 27 H 24 23 Rate Respiratory Rate [Abdomen] Blood Pressure 157/63 157/63 158/56 O2 Sat by Pulse 98 98 97 Oximetry 09/10/18 09/10/18 09/10/18 16:45 17:00 17:15 Temperature Pulse Rate 104 H 106 H 108 H Pulse Rate [ From Monitor] Respiratory 21 23 22 Rate Respiratory Rate [Abdomen] Blood Pressure 158/56 163/55 163/55 O2 Sat by Pulse 98 95 97 Oximetry 09/10/18 09/10/18 09/10/18 17:30 17:45 18:00 Temperature Pulse Rate 106 H 108 H 103 H Pulse Rate [ 109 H From Monitor] Respiratory 22 30 H 25 H Rate Respiratory Rate [Abdomen] Blood Pressure 137/64 137/64 127/61 O2 Sat by Pulse 97 97 97 Oximetry General appearance: Present: no acute distress, well-nourished - EENT Eyes: PERRL, EOM intact ENT: hearing intact, clear oral mucosa Ears: bilateral: normal - Neck Neck: supple, normal ROM - Respiratory Respiratory effort: normal Respiratory: bilateral: CTA - Breasts Breasts: normal - Cardiovascular Heart rate: 88 Rhythm: regular Heart Sounds: Present: S1 & S2. Absent: gallop, rub Extremities: no ischemia, pulses intact, No edema, normal color, Full ROM - Gastrointestinal General gastrointestinal: Present: soft, non-tender, non-distended, normal bowel sounds - Genitourinary Female genitourinary: normal - Integumentary Integumentary: clear, warm, dry - Musculoskeletal Musculoskeletal: 1, strength equal bilaterally - Neurologic Neurologic: moves all extremities - Psychiatric Psychiatric: memory intact, appropriate mood/affect, intact judgment & insight - Labs CBC & Chem 7: 09/12/18 05:46 09/12/18 05:46 Labs: Abnormal lab results 09/09/18 09/10/18 09/10/18 Range/Units 17:09 08:08 08:08 WBC 18.6 H (4.5-11.0) K/mm3 RBC 3.36 L (3.65-5.03) M/mm3 Hgb 9.9 L (10.1-14.3) gm/dl Hct 29.7 L (30.3-42.9) % Seg Neuts % (Manual) 94.0 H 96.0 H (40.0-70.0) % Lymphocytes % (Manual) 3.0 L 2.0 L (13.4-35.0) % Seg Neutrophils # Man 21.2 H 17.9 H (1.8-7.7) K/mm3 Lymphocytes # (Manual) 0.7 L 0.4 L (1.2-5.4) K/mm3 Chloride 114.7 H (98-107) mmol/L Carbon Dioxide 17 L (22-30) mmol/L BUN 30 H (7-17) mg/dL Creatinine 1.3 H (0.7-1.2) mg/dL Glucose 148 H (65-100) mg/dL Total Protein 5.1 L D (6.3-8.2) g/dL Albumin 2.2 L (3.9-5) g/dL
[2018-09-11] MEDS: ZOSYN/NS 2.25 GM/50ML 2.25 GM/50 ML BAG IV SCH ×4 (06:09→23:52)
[2018-09-11] MEDS: D5/0.45NS 1,000 ML IV SCH ×2 (06:10→22:32)
[2018-09-11] MEDS: PROTONIX IV SCH ×2 (09:45→22:33)
[2018-09-11] MEDS: SODIUM CHLORIDE FLUSH SYRINGE 10 ML IV SCH ×2 (09:46→22:34)
--- NOTE | 2018-09-11 10:02 | Progress Note ---
Assessment and Plan Acute hypoxic respiratory failure, post op s/p extubation Sepsis Peritonitis/Perforated viscus Acute toxic-metabolic encephalopathy Hyperchloremia Acute renal insufficiency h/o hypertension h/o sciatica h/o osteoporosis Chronic back pain - get CXR in am - consider empiric qhs BIPAP - continue aspiration precautions - get PICC line as likely to begin TPN per surgeon - continue empiric AB's and follow cultures - trend CRP & lactate levels to aid clinical decision making - continue supplemental oxygen to keep O2 sat' > 90% - continue Incentive spirometry - OOB to chair, PT consult placed - Discontinue moran catheter once ok with surgeon - continue to limit narcotic analgeia and avoid benzodiazepines - mobility protocols for pressure ulcer prophylaxis - Maintenance of sleep- wake pattern; avoid delirium - Avoid nephrotoxins, adjust all medications for GFR and CrCl - VTE prophylaxis-heparin - prn Analgesia - continue Stress ulcer prophylaxis - Limit normal saline infusions in view of hyperchloremia and renal insufficiency .... watch closely in ICU; age, worsening metabolic acidosis and delirium portend poorer prognosis .... care plan discussed with surgeon at bedside The high probability of a clinically significant, sudden or life-threatening deterioration of the [cardiac, neurology] system(s) required my full and direct attention, intervention and personal management. The aggregate critical care time was [32] minutes without overlap. Time includes spent on; [x] Data Review and interpretation [x] Patient assessment and monitoring of vital signs [x] Documentation [x] Medication orders and management Subjective Date of service: 09/11/18 Principal diagnosis: Sepsis; Peritonitis; Acute metabolic encephaloapthy; Obesity Interval history: Patient is seen today for: Sepsis; Peritonitis; Acute metabolic encephaloapthy; Obesity Seen and examined at bedside; 24hour events reviewed; nursing and respiratory care staff consulted; no adverse overnight events reported to me; resting peacefully in bed; Son in room; remains NPO; delirium more evident last 24 hours; no emesis or overt aspiration; remains on supplemental oxygen; + fever of 100.3 Objective Vital Signs - 12hr 09/10/18 09/10/18 09/10/18 22:15 22:30 22:45 Temperature Pulse Rate 107 H 98 H 104 H Pulse Rate [ From Monitor] Respiratory 27 H 29 H 36 H Rate Blood Pressure 140/51 143/56 143/56 O2 Sat by Pulse 97 96 96 Oximetry 09/10/18 09/10/18 09/10/18 23:00 23:07 23:09 Temperature 98.9 F Pulse Rate 103 H 102 H Pulse Rate [ From Monitor] Respiratory 35 H 37 H Rate Blood Pressure 142/58 142/58 O2 Sat by Pulse 96 96 Oximetry 09/10/18 09/10/18 09/10/18 23:15 23:30 23:45 Temperature Pulse Rate 100 H 107 H 101 H Pulse Rate [ From Monitor] Respiratory 20 22 36 H Rate Blood Pressure 142/58 152/65 152/65 O2 Sat by Pulse 97 98 96 Oximetry 09/11/18 09/11/18 09/11/18 00:00 00:15 00:30 Temperature Pulse Rate 101 H 100 H 100 H Pulse Rate [ 103 H From Monitor] Respiratory 35 H 35 H 37 H Rate Blood Pressure 146/50 146/50 141/57 O2 Sat by Pulse 96 96 96 Oximetry 09/11/18 09/11/18 09/11/18 00:45 01:00 01:15 Temperature Pulse Rate 96 H 104 H 100 H Pulse Rate [ From Monitor] Respiratory 24 15 18 Rate Blood Pressure 141/57 145/55 145/55 O2 Sat by Pulse 96 96 96 Oximetry 09/11/18 09/11/18 09/11/18 01:30 01:45 02:00 Temperature Pulse Rate 98 H 98 H 102 H Pulse Rate [ 98 H From Monitor] Respiratory 20 38 H 37 H Rate Blood Pressure 138/58 138/58 147/59 O2 Sat by Pulse 95 95 96 Oximetry 09/11/18 09/11/18 09/11/18 02:15 02:30 02:46 Temperature Pulse Rate 97 H 104 H 105 H Pulse Rate [ From Monitor] Respiratory 32 H 38 H 25 H Rate Blood Pressure 147/59 151/65 147/59 O2 Sat by Pulse 95 96 97 Oximetry 09/11/18 09/11/18 09/11/18 03:00 03:16 03:19 Temperature 100.3 F H Pulse Rate 99 H 97 H Pulse Rate [ From Monitor] Respiratory 33 H 28 H Rate Blood Pressure 138/73 151/65 O2 Sat by Pulse 95 96 Oximetry 09/11/18 09/11/18 09/11/18 03:30 03:46 04:00 Temperature Pulse Rate 100 H 99 H 101 H Pulse Rate [ 98 H From Monitor] Respiratory 34 H 31 H 33 H Rate Blood Pressure 146/65 146/65 146/65 O2 Sat by Pulse 96 96 96 Oximetry 09/11/18 09/11/18 09/11/18 04:16 04:30 04:46 Temperature Pulse Rate 102 H 94 H 91 H Pulse Rate [ From Monitor] Respiratory 35 H 21 30 H Rate Blood Pressure 146/65 133/62 133/62 O2 Sat by Pulse 95 96 95 Oximetry 09/11/18 09/11/18 09/11/18 05:00 05:16 05:30 Temperature Pulse Rate 94 H 100 H 99 H Pulse Rate [ From Monitor] Respiratory 22 36 H 36 H Rate Blood Pressure 137/57 137/57 137/56 O2 Sat by Pulse 96 96 96 Oximetry 09/11/18 09/11/18 09/11/18 05:46 06:00 06:16 Temperature Pulse Rate 93 H 100 H 103 H Pulse Rate [ 100 H From Monitor] Respiratory 38 H 33 H 29 H Rate Blood Pressure 137/56 145/59 145/59 O2 Sat by Pulse 96 96 96 Oximetry 09/11/18 09/11/18 09/11/18 06:30 06:46 07:00 Temperature Pulse Rate 98 H 92 H 90 Pulse Rate [ From Monitor] Respiratory 35 H 29 H 34 H Rate Blood Pressure 149/65 145/59 137/59 O2 Sat by Pulse 96 95 95 Oximetry 09/11/18 09/11/18 09/11/18 07:16 07:30 07:46 Temperature Pulse Rate 107 H 100 H 96 H Pulse Rate [ From Monitor] Respiratory 32 H 35 H 29 H Rate Blood Pressure 137/59 147/60 147/60 O2 Sat by Pulse 97 96 95 Oximetry 09/11/18 09/11/18 09/11/18 08:00 08:16 08:20 Temperature 98.2 F Pulse Rate 88 97 H Pulse Rate [ 98 H From Monitor] Respiratory 32 H 29 H Rate Blood Pressure 142/59 142/59 O2 Sat by Pulse 97 96 96 Oximetry 09/11/18 09/11/18 09/11/18 08:30 08:46 09:00 Temperature Pulse Rate 102 H 98 H 96 H Pulse Rate [ From Monitor] Respiratory 27 H 24 25 H Rate Blood Pressure 142/59 152/62 137/57 O2 Sat by Pulse 97 96 96 Oximetry Constitutional: no acute distress, alert, other (on 2L nC, resting peacefully in bed at time of my exam) Eyes: non-icteric ENT: oropharynx moist, other (NGT in place) Neck: supple, no JVD, other (short neck with large neck circumference) Effort: normal Ascultation: Bilateral: clear Percussion: Bilateral: not dull Cardiovascular: regular rate and rhythm, other (S1,S2, no murmurs, gallops or rubs) Gastrointestinal: absent bowel sounds, hypoactive bowel sounds, tender (mildly), non-distended, other (BETTY drain in place) Integumentary: normal Extremities: no cyanosis, no edema, pink and warm, no ischemia or petechiae Neurologic: non-focal exam (grossly), pupils equal and round, motor strength normal and, other (obesy one step command, delirium) Psychiatric: affect normal CBC and BMP: 09/12/18 05:46 09/12/18 05:46 ABG, PT/INR, D-dimer: PT/INR, D-dimer PT 13.5 Sec. (12.2-14.9) 09/08/18 23:16 INR 1.06 (0.87-1.13) 09/08/18 23:16 Abnormal lab findings: Abnormal Labs 09/08/18 09/08/18 09/08/18 22:08 22:08 23:01 WBC 14.8 H RBC Hgb Hct Seg Neutrophils % 79.8 H Seg Neuts % (Manual) Lymphocytes % (Manual) Seg Neutrophils # 11.8 H Seg Neutrophils # Man Lymphocytes # (Manual) Sodium 134 L Potassium Chloride Carbon Dioxide 20 L BUN 41 H Creatinine 1.6 H Glucose 126 H Alkaline Phosphatase 131 H Total Creatine Kinase 21 L Total Protein Albumin 3.2 L Urine WBC (Auto) > 182.0 H U Epithel Cells (Auto) 60.0 H 09/09/18 09/09/18 09/09/18 07:18 07:18 17:09 WBC 29.7 H 22.6 H RBC 3.46 L Hgb Hct Seg Neutrophils % Seg Neuts % (Manual) 96.0 H 94.0 H Lymphocytes % (Manual) 1.0 L 3.0 L Seg Neutrophils # Seg Neutrophils # Man 28.5 H 21.2 H Lymphocytes # (Manual) 0.3 L 0.7 L Sodium 136 L Potassium 5.4 H Chloride 107.1 H Carbon Dioxide 19 L BUN 35 H Creatinine 1.5 H Glucose 113 H Alkaline Phosphatase Total Creatine Kinase Total Protein Albumin Urine WBC (Auto) U Epithel Cells (Auto) 09/10/18 09/10/18 08:08 08:08 WBC 18.6 H RBC 3.36 L Hgb 9.9 L Hct 29.7 L Seg Neutrophils % Seg Neuts % (Manual) 96.0 H Lymphocytes % (Manual) 2.0 L Seg Neutrophils # Seg Neutrophils # Man 17.9 H Lymphocytes # (Manual) 0.4 L Sodium Potassium Chloride 114.7 H Carbon Dioxide 17 L BUN 30 H Creatinine 1.3 H Glucose 148 H Alkaline Phosphatase Total Creatine Kinase Total Protein 5.1 L D Albumin 2.2 L Urine WBC (Auto) U Epithel Cells (Auto) Chest x-ray: pending Allied health notes reviewed: nursing
[2018-09-11] MEDS: HEPARIN SUB-Q SCH ×2 (10:16→22:33)
--- NOTE | 2018-09-11 11:17 | Progress Note ---
Assessment and Plan POD#2 s/p ex lap with gram patch for duodenal ulcer perforation. stable, low grad temp, wbc trending down. if continues to do well will get UGI tomorrow to evaluate and assess healing of repair. would consider PICC line for parental nutrition if continues slow progression. Subjective Date of service: 09/11/18 Narrative: no acute events over night except low grade temp of 100.3. This morning she is mildly confused. She denies pain Objective Vital Signs - 12hr 09/10/18 09/10/18 09/10/18 23:15 23:30 23:45 Temperature Pulse Rate 100 H 107 H 101 H Pulse Rate [ From Monitor] Respiratory 20 22 36 H Rate Blood Pressure 142/58 152/65 152/65 O2 Sat by Pulse 97 98 96 Oximetry 09/11/18 09/11/18 09/11/18 00:00 00:15 00:30 Temperature Pulse Rate 101 H 100 H 100 H Pulse Rate [ 103 H From Monitor] Respiratory 35 H 35 H 37 H Rate Blood Pressure 146/50 146/50 141/57 O2 Sat by Pulse 96 96 96 Oximetry 09/11/18 09/11/18 09/11/18 00:45 01:00 01:15 Temperature Pulse Rate 96 H 104 H 100 H Pulse Rate [ From Monitor] Respiratory 24 15 18 Rate Blood Pressure 141/57 145/55 145/55 O2 Sat by Pulse 96 96 96 Oximetry 09/11/18 09/11/18 09/11/18 01:30 01:45 02:00 Temperature Pulse Rate 98 H 98 H 102 H Pulse Rate [ 98 H From Monitor] Respiratory 20 38 H 37 H Rate Blood Pressure 138/58 138/58 147/59 O2 Sat by Pulse 95 95 96 Oximetry 09/11/18 09/11/18 09/11/18 02:15 02:30 02:46 Temperature Pulse Rate 97 H 104 H 105 H Pulse Rate [ From Monitor] Respiratory 32 H 38 H 25 H Rate Blood Pressure 147/59 151/65 147/59 O2 Sat by Pulse 95 96 97 Oximetry 09/11/18 09/11/18 09/11/18 03:00 03:16 03:19 Temperature 100.3 F H Pulse Rate 99 H 97 H Pulse Rate [ From Monitor] Respiratory 33 H 28 H Rate Blood Pressure 138/73 151/65 O2 Sat by Pulse 95 96 Oximetry 09/11/18 09/11/18 09/11/18 03:30 03:46 04:00 Temperature Pulse Rate 100 H 99 H 101 H Pulse Rate [ 98 H From Monitor] Respiratory 34 H 31 H 33 H Rate Blood Pressure 146/65 146/65 146/65 O2 Sat by Pulse 96 96 96 Oximetry 09/11/18 09/11/18 09/11/18 04:16 04:30 04:46 Temperature Pulse Rate 102 H 94 H 91 H Pulse Rate [ From Monitor] Respiratory 35 H 21 30 H Rate Blood Pressure 146/65 133/62 133/62 O2 Sat by Pulse 95 96 95 Oximetry 09/11/18 09/11/18 09/11/18 05:00 05:16 05:30 Temperature Pulse Rate 94 H 100 H 99 H Pulse Rate [ From Monitor] Respiratory 22 36 H 36 H Rate Blood Pressure 137/57 137/57 137/56 O2 Sat by Pulse 96 96 96 Oximetry 09/11/18 09/11/18 09/11/18 05:46 06:00 06:16 Temperature Pulse Rate 93 H 100 H 103 H Pulse Rate [ 100 H From Monitor] Respiratory 38 H 33 H 29 H Rate Blood Pressure 137/56 145/59 145/59 O2 Sat by Pulse 96 96 96 Oximetry 09/11/18 09/11/18 09/11/18 06:30 06:46 07:00 Temperature Pulse Rate 98 H 92 H 90 Pulse Rate [ From Monitor] Respiratory 35 H 29 H 34 H Rate Blood Pressure 149/65 145/59 137/59 O2 Sat by Pulse 96 95 95 Oximetry 09/11/18 09/11/18 09/11/18 07:16 07:30 07:46 Temperature Pulse Rate 107 H 100 H 96 H Pulse Rate [ From Monitor] Respiratory 32 H 35 H 29 H Rate Blood Pressure 137/59 147/60 147/60 O2 Sat by Pulse 97 96 95 Oximetry 09/11/18 09/11/18 09/11/18 08:00 08:16 08:20 Temperature 98.2 F Pulse Rate 88 97 H Pulse Rate [ 98 H From Monitor] Respiratory 32 H 29 H Rate Blood Pressure 142/59 142/59 O2 Sat by Pulse 97 96 96 Oximetry 09/11/18 09/11/18 09/11/18 08:30 08:46 09:00 Temperature Pulse Rate 102 H 98 H 96 H Pulse Rate [ From Monitor] Respiratory 27 H 24 25 H Rate Blood Pressure 142/59 152/62 137/57 O2 Sat by Pulse 97 96 96 Oximetry 09/11/18 09/11/18 09/11/18 09:16 09:30 09:46 Temperature Pulse Rate 98 H 92 H 94 H Pulse Rate [ From Monitor] Respiratory 20 33 H 29 H Rate Blood Pressure 137/57 128/57 128/57 O2 Sat by Pulse 97 94 96 Oximetry 09/11/18 09/11/18 09/11/18 10:00 10:16 10:31 Temperature Pulse Rate 97 H 99 H Pulse Rate [ 103 H From Monitor] Respiratory 17 21 22 Rate Blood Pressure 148/60 153/60 O2 Sat by Pulse 97 98 98 Oximetry - General physical appearance well developed, no distress - Respiratory normal expansion, normal respiratory effort - Abdomen soft, not tender, not guarding, not rigid, other (incision c/d/i, BETTY drain 60ml in 24 hours serosanguinous, NGT minimal drainage) - Labs 09/10/18 08:08 09/10/18 08:08
--- NOTE | 2018-09-11 13:49 | Progress Note ---
Assessment and Plan (1) Perforated duodenal ulcer Current Visit: Yes Status: Acute Plan to address problem: POD#3 s/p ex lap with toni patch repair of perforated duodenal ulcer. stable with down trending wbc, afebrile. agitation likely due to hx of dementia, and . UGI ordered and scheduled to be performed thursday. If negative will start on clear liquids. On Protonix (2) SIRS (systemic inflammatory response syndrome) Current Visit: Yes Status: Acute Plan to address problem: On Zosyn wbc trending down (3) HTN (hypertension) Current Visit: Yes Status: Chronic Qualifiers: Hypertension type: essential hypertension Qualified Code(s): I10 - Essential (primary) hypertension Plan to address problem: IV Lopressor pRn Resume losartan 100 qd from tomorrow (4) TAYLOR (generalized anxiety disorder) Current Visit: Yes Status: Chronic Plan to address problem: Ativan prn (5) DVT prophylaxis Current Visit: No Status: Acute Plan to address problem: On Scd's and GI prophylaxis Subjective Date of service: 09/11/18 Principal diagnosis: Sepsis; Peritonitis; Acute metabolic encephaloapthy; Obesity Interval history: POD#2 s/p ex lap with toni patch repair of perforated duodenal ulcer. stable with down trending wbc, afebrile. agitation likely due to hx of dementia, and . UGI ordered and scheduled to be performed Thursday. If negative will start on clear liquids. Objective - Constitutional Vitals: Vital Signs - 12hr 09/11/18 09/11/18 09/11/18 02:00 02:15 02:30 Temperature Pulse Rate 102 H 97 H 104 H Pulse Rate [ 98 H From Monitor] Respiratory 37 H 32 H 38 H Rate Blood Pressure 147/59 147/59 151/65 O2 Sat by Pulse 96 95 96 Oximetry 09/11/18 09/11/18 09/11/18 02:46 03:00 03:16 Temperature Pulse Rate 105 H 99 H 97 H Pulse Rate [ From Monitor] Respiratory 25 H 33 H 28 H Rate Blood Pressure 147/59 138/73 151/65 O2 Sat by Pulse 97 95 96 Oximetry 09/11/18 09/11/18 09/11/18 03:19 03:30 03:46 Temperature 100.3 F H Pulse Rate 100 H 99 H Pulse Rate [ From Monitor] Respiratory 34 H 31 H Rate Blood Pressure 146/65 146/65 O2 Sat by Pulse 96 96 Oximetry 09/11/18 09/11/18 09/11/18 04:00 04:16 04:30 Temperature Pulse Rate 101 H 102 H 94 H Pulse Rate [ 98 H From Monitor] Respiratory 33 H 35 H 21 Rate Blood Pressure 146/65 146/65 133/62 O2 Sat by Pulse 96 95 96 Oximetry 09/11/18 09/11/18 09/11/18 04:46 05:00 05:16 Temperature Pulse Rate 91 H 94 H 100 H Pulse Rate [ From Monitor] Respiratory 30 H 22 36 H Rate Blood Pressure 133/62 137/57 137/57 O2 Sat by Pulse 95 96 96 Oximetry 09/11/18 09/11/18 09/11/18 05:30 05:46 06:00 Temperature Pulse Rate 99 H 93 H 100 H Pulse Rate [ 100 H From Monitor] Respiratory 36 H 38 H 33 H Rate Blood Pressure 137/56 137/56 145/59 O2 Sat by Pulse 96 96 96 Oximetry 09/11/18 09/11/18 09/11/18 06:16 06:30 06:46 Temperature Pulse Rate 103 H 98 H 92 H Pulse Rate [ From Monitor] Respiratory 29 H 35 H 29 H Rate Blood Pressure 145/59 149/65 145/59 O2 Sat by Pulse 96 96 95 Oximetry 09/11/18 09/11/18 09/11/18 07:00 07:16 07:30 Temperature Pulse Rate 90 107 H 100 H Pulse Rate [ From Monitor] Respiratory 34 H 32 H 35 H Rate Blood Pressure 137/59 137/59 147/60 O2 Sat by Pulse 95 97 96 Oximetry 09/11/18 09/11/18 09/11/18 07:46 08:00 08:16 Temperature 98.2 F Pulse Rate 96 H 88 97 H Pulse Rate [ 98 H From Monitor] Respiratory 29 H 32 H 29 H Rate Blood Pressure 147/60 142/59 142/59 O2 Sat by Pulse 95 97 96 Oximetry 09/11/18 09/11/18 09/11/18 08:20 08:30 08:46 Temperature Pulse Rate 102 H 98 H Pulse Rate [ From Monitor] Respiratory 27 H 24 Rate Blood Pressure 142/59 152/62 O2 Sat by Pulse 96 97 96 Oximetry 09/11/18 09/11/18 09/11/18 09:00 09:16 09:30 Temperature Pulse Rate 96 H 98 H 92 H Pulse Rate [ From Monitor] Respiratory 25 H 20 33 H Rate Blood Pressure 137/57 137/57 128/57 O2 Sat by Pulse 96 97 94 Oximetry 09/11/18 09/11/18 09/11/18 09:46 10:00 10:16 Temperature Pulse Rate 94 H 97 H 99 H Pulse Rate [ From Monitor] Respiratory 29 H 17 21 Rate Blood Pressure 128/57 148/60 153/60 O2 Sat by Pulse 96 97 98 Oximetry 09/11/18 09/11/18 09/11/18 10:30 10:31 10:46 Temperature Pulse Rate 97 H 98 H Pulse Rate [ 103 H From Monitor] Respiratory 27 H 22 13 Rate Blood Pressure 146/55 146/55 O2 Sat by Pulse 98 98 97 Oximetry 09/11/18 09/11/18 09/11/18 11:00 11:16 11:30 Temperature Pulse Rate 97 H 98 H 92 H Pulse Rate [ From Monitor] Respiratory 15 13 14 Rate Blood Pressure 148/59 148/59 134/53 O2 Sat by Pulse 97 98 97 Oximetry 09/11/18 09/11/18 09/11/18 11:46 12:00 12:16 Temperature 99.7 F H Pulse Rate 95 H 87 89 Pulse Rate [ From Monitor] Respiratory 25 H 32 H 37 H Rate Blood Pressure 134/53 126/45 126/45 O2 Sat by Pulse 97 97 97 Oximetry 09/11/18 09/11/18 09/11/18 12:30 12:46 13:00 Temperature Pulse Rate 84 92 H 98 H Pulse Rate [ From Monitor] Respiratory 27 H 33 H 19 Rate Blood Pressure 133/57 133/57 145/58 O2 Sat by Pulse 97 98 98 Oximetry General appearance: Present: no acute distress, well-nourished - EENT Eyes: PERRL, EOM intact ENT: hearing intact, clear oral mucosa Ears: bilateral: normal - Neck Neck: supple, normal ROM - Respiratory Respiratory effort: normal Respiratory: bilateral: CTA - Breasts Breasts: normal - Cardiovascular Heart rate: 78 Rhythm: regular Heart Sounds: Present: S1 & S2. Absent: gallop, rub Extremities: pulses intact, No edema, normal color, Full ROM - Gastrointestinal General gastrointestinal: Present: soft, non-tender, non-distended, normal bowel sounds - Genitourinary Female genitourinary: normal - Integumentary Integumentary: clear, warm, dry - Musculoskeletal Musculoskeletal: 1, strength equal bilaterally - Neurologic Neurologic: moves all extremities - Psychiatric Psychiatric: memory intact, appropriate mood/affect, intact judgment & insight - Labs CBC & Chem 7: 09/12/18 05:46 09/12/18 05:46
[2018-09-12] MEDS: ZOSYN/NS 2.25 GM/50ML 2.25 GM/50 ML BAG IV SCH ×4 (05:49→23:14)
[2018-09-12 06:43] LABS: Basophils # (Auto) 0.1 K/mm3 (0.0-0.1); Basophils % (Auto) 0.4 % (0.0-1.8); Eosinophils % (Auto) 0.3 % (0.0-4.3); Hematocrit 30.3 % (30.3-42.9); Hemoglobin 9.9 gm/dl (10.1-14.3); Lymphocytes # (Auto) 1.1 K/mm3 (1.2-5.4); Mean Corpuscular HGB Conc 33 % (30-34); Mean Corpuscular Volume 89 fl (79-97); Monocytes # (Auto) 0.4 K/mm3 (0.0-0.8); Monocytes % (Auto) 3.3 % (0.0-7.3); Red Cell Distribution Width 14.6 % (13.2-15.2)
[2018-09-12 06:50] LABS: Platelet Count 189 K/mm3 (140-440)
[2018-09-12 07:01] LABS: Alanine Aminotransferase 19 units/L (7-56); BUN/Creatinine Ratio 16; Blood Urea Nitrogen 11 mg/dL (7-17); Calcium 8.6 mg/dL (8.4-10.2); Hemolysis Index 8
[2018-09-12] MEDS: SODIUM CHLORIDE FLUSH SYRINGE 10 ML IV SCH ×2 (10:58→21:01)
[2018-09-12] MEDS: PROTONIX IV SCH ×2 (10:58→21:01)
[2018-09-12] MEDS: HEPARIN SUB-Q SCH ×2 (10:59→21:01)
--- NOTE | 2018-09-12 11:20 | Progress Note ---
Assessment and Plan POD#3 s/p ex lap with grahm patch repair of perforated duodenal ulcer. stable with down trending wbc, afebrile. agitation likely due to hx of dementia, and sundowning. UGI ordered and scheduled to be performed tomorrow. If negative will start on clear liquids. Subjective Date of service: 09/12/18 Patient Reports: Positive: other (over past 24 hours pt has been agitated and very confused per son. clinically no issues.) Objective Vital Signs - 12hr 09/11/18 09/11/18 09/12/18 23:30 23:51 00:00 Temperature 99.0 F Pulse Rate 94 H 101 H Pulse Rate [ 93 H From Monitor] Respiratory 23 26 H Rate Blood Pressure 163/65 160/66 O2 Sat by Pulse 98 98 Oximetry 09/12/18 09/12/18 09/12/18 00:03 00:30 01:30 Temperature Pulse Rate 99 H 102 H 91 H Pulse Rate [ From Monitor] Respiratory 18 22 Rate Blood Pressure 166/70 158/63 O2 Sat by Pulse 98 98 Oximetry 09/12/18 09/12/18 09/12/18 02:00 03:00 03:30 Temperature Pulse Rate 104 H 108 H 97 H Pulse Rate [ From Monitor] Respiratory 20 20 16 Rate Blood Pressure 162/70 162/70 160/67 O2 Sat by Pulse 98 98 97 Oximetry 09/12/18 09/12/18 09/12/18 03:55 04:00 04:30 Temperature 99.1 F Pulse Rate 98 H 95 H Pulse Rate [ 102 H From Monitor] Respiratory 23 26 H Rate Blood Pressure 160/73 161/66 O2 Sat by Pulse 98 97 Oximetry 09/12/18 09/12/18 09/12/18 05:00 05:30 06:00 Temperature Pulse Rate 112 H 95 H 112 H Pulse Rate [ From Monitor] Respiratory 21 24 20 Rate Blood Pressure 161/66 173/75 165/68 O2 Sat by Pulse 97 98 98 Oximetry 09/12/18 09/12/18 09/12/18 06:30 07:00 07:30 Temperature Pulse Rate 90 113 H 110 H Pulse Rate [ From Monitor] Respiratory 29 H 33 H 32 H Rate Blood Pressure 170/67 158/73 170/67 O2 Sat by Pulse 97 98 98 Oximetry 09/12/18 09/12/18 09/12/18 07:58 08:00 08:30 Temperature 99.2 F Pulse Rate 99 H 106 H Pulse Rate [ From Monitor] Respiratory 23 39 H Rate Blood Pressure 170/67 167/67 O2 Sat by Pulse 98 98 Oximetry 09/12/18 09/12/18 09/12/18 09:00 09:05 09:30 Temperature Pulse Rate 130 H 148 H Pulse Rate [ From Monitor] Respiratory 40 H 53 H Rate Blood Pressure 167/67 180/89 O2 Sat by Pulse 99 99 98 Oximetry 09/12/18 09/12/18 10:00 10:30 Temperature Pulse Rate 147 H 125 H Pulse Rate [ From Monitor] Respiratory 48 H 39 H Rate Blood Pressure 175/97 184/89 O2 Sat by Pulse 98 98 Oximetry - General physical appearance well developed, no pain - Respiratory normal expansion, normal respiratory effort - Abdomen soft, not tender, other (incision c/d/i, BETTY drain sero-sanginous) - Labs 09/12/18 05:46 09/12/18 05:46 Diabetes panel 09/12/18 Range/Units 05:46 Sodium 136 L (137-145) mmol/L Potassium 3.7 D (3.6-5.0) mmol/L Chloride 108.4 H (98-107) mmol/L Carbon Dioxide 17 L (22-30) mmol/L BUN 11 (7-17) mg/dL Creatinine 0.7 (0.7-1.2) mg/dL Glucose 136 H (65-100) mg/dL Calcium 8.6 (8.4-10.2) mg/dL AST 14 (5-40) units/L ALT 19 (7-56) units/L Alkaline Phosphatase 104 (35-129) units/L Total Protein 5.1 L (6.3-8.2) g/dL Albumin 2.0 L (3.9-5) g/dL Calcium panel 09/12/18 Range/Units 05:46 Calcium 8.6 (8.4-10.2) mg/dL Albumin 2.0 L (3.9-5) g/dL Pituitary panel 09/12/18 Range/Units 05:46 Sodium 136 L (137-145) mmol/L Potassium 3.7 D (3.6-5.0) mmol/L Chloride 108.4 H (98-107) mmol/L Carbon Dioxide 17 L (22-30) mmol/L BUN 11 (7-17) mg/dL Creatinine 0.7 (0.7-1.2) mg/dL Glucose 136 H (65-100) mg/dL Calcium 8.6 (8.4-10.2) mg/dL Adrenal panel 09/12/18 Range/Units 05:46 Sodium 136 L (137-145) mmol/L Potassium 3.7 D (3.6-5.0) mmol/L Chloride 108.4 H (98-107) mmol/L Carbon Dioxide 17 L (22-30) mmol/L BUN 11 (7-17) mg/dL Creatinine 0.7 (0.7-1.2) mg/dL Glucose 136 H (65-100) mg/dL Calcium 8.6 (8.4-10.2) mg/dL Total Bilirubin 0.50 (0.1-1.2) mg/dL AST 14 (5-40) units/L ALT 19 (7-56) units/L Alkaline Phosphatase 104 (35-129) units/L Total Protein 5.1 L (6.3-8.2) g/dL Albumin 2.0 L (3.9-5) g/dL
--- NOTE | 2018-09-12 12:57 | XRay Report ---
CHEST 1 VIEW, 09/12/2018 12:30 PM INDICATION: Left-sided PICC line placement COMPARISON: Chest radiograph, 08/28/2018 at 1133 FINDINGS: Support devices: There has been placement of left-sided PICC line with distal tip overlying the left neck. An esophagogastric tube has also been placed with distal end overlying the stomach. Heart: The cardiac silhouette is normal in size. Lungs/pleura: No focal airspace disease or significant pleural effusion is seen. Additional findings: No additional acute findings. IMPRESSION: 1. Interval placement of left-sided PICC line with distal end overlying the left neck. This will requ kayce repositioning. 2. Placement of esophagogastric tube with distal end overlying the stomach. Signer Name: Ayanna Jarrett MD Signed: 09/12/2018 12:53 PM Workstation Name: [id number]
--- NOTE | 2018-09-12 13:22 | Progress Note ---
Assessment and Plan - Patient Problems (1) Perforated duodenal ulcer Current Visit: Yes Status: Acute Plan to address problem: POD#3 s/p ex lap with grahm patch repair of perforated duodenal ulcer. stable with down trending wbc, afebrile. agitation likely due to hx of dementia, and sundowning. UGI ordered and scheduled to be performed tomorrow. If negative will start on clear liquids. On Protonix (2) HTN (hypertension) Current Visit: Yes Status: Chronic Qualifiers: Hypertension type: essential hypertension Qualified Code(s): I10 - Essential (primary) hypertension Plan to address problem: IVLopressor pRn Resume losartan 100 qd from tomorrow (3) TAYLOR (generalized anxiety disorder) Current Visit: Yes Status: Chronic Plan to address problem: Ativan prn (4) DVT prophylaxis Current Visit: No Status: Acute Plan to address problem: On Scd's and GI prophylaxis Subjective Date of service: 09/12/18 Principal diagnosis: Sepsis; Peritonitis; Acute metabolic encephaloapthy; Obesity Interval history: POD#3 s/p ex lap with toni patch repair of perforated duodenal ulcer. stable with down trending wbc, afebrile. agitation likely due to hx of dementia, and sundowning. UGI ordered and scheduled to be performed tomorrow. If negative will start on clear liquids. Objective - Constitutional Vitals: Vital Signs - 12hr 09/12/18 09/12/18 09/12/18 01:30 02:00 03:00 Temperature Pulse Rate 91 H 104 H 108 H Pulse Rate [ From Monitor] Respiratory 22 20 20 Rate Blood Pressure 158/63 162/70 162/70 O2 Sat by Pulse 98 98 98 Oximetry 09/12/18 09/12/18 09/12/18 03:30 03:55 04:00 Temperature 99.1 F Pulse Rate 97 H 98 H Pulse Rate [ 102 H From Monitor] Respiratory 16 23 Rate Blood Pressure 160/67 160/73 O2 Sat by Pulse 97 98 Oximetry 09/12/18 09/12/18 09/12/18 04:30 05:00 05:30 Temperature Pulse Rate 95 H 112 H 95 H Pulse Rate [ From Monitor] Respiratory 26 H 21 24 Rate Blood Pressure 161/66 161/66 173/75 O2 Sat by Pulse 97 97 98 Oximetry 09/12/18 09/12/18 09/12/18 06:00 06:30 07:00 Temperature Pulse Rate 112 H 90 113 H Pulse Rate [ From Monitor] Respiratory 20 29 H 33 H Rate Blood Pressure 165/68 170/67 158/73 O2 Sat by Pulse 98 97 98 Oximetry 09/12/18 09/12/18 09/12/18 07:30 07:58 08:00 Temperature 99.2 F Pulse Rate 110 H 99 H Pulse Rate [ From Monitor] Respiratory 32 H 23 Rate Blood Pressure 170/67 170/67 O2 Sat by Pulse 98 98 Oximetry 09/12/18 09/12/18 09/12/18 08:30 09:00 09:05 Temperature Pulse Rate 106 H 130 H Pulse Rate [ From Monitor] Respiratory 39 H 40 H Rate Blood Pressure 167/67 167/67 O2 Sat by Pulse 98 99 99 Oximetry 09/12/18 09/12/18 09/12/18 09:30 10:00 10:30 Temperature Pulse Rate 148 H 147 H 125 H Pulse Rate [ From Monitor] Respiratory 53 H 48 H 39 H Rate Blood Pressure 180/89 175/97 184/89 O2 Sat by Pulse 98 98 98 Oximetry 09/12/18 09/12/18 09/12/18 11:00 11:30 12:00 Temperature 98.1 F Pulse Rate 106 H 100 H 124 H Pulse Rate [ 117 H From Monitor] Respiratory 38 H 26 H 29 H Rate Blood Pressure 149/82 149/82 158/74 O2 Sat by Pulse 98 98 99 Oximetry 09/12/18 12:30 Temperature Pulse Rate 118 H Pulse Rate [ From Monitor] Respiratory 32 H Rate Blood Pressure 169/76 O2 Sat by Pulse 99 Oximetry General appearance: Present: no acute distress, well-nourished - EENT Eyes: PERRL, EOM intact ENT: hearing intact, clear oral mucosa Ears: bilateral: normal - Neck Neck: supple, normal ROM - Respiratory Respiratory effort: normal Respiratory: bilateral: CTA - Breasts Breasts: normal - Cardiovascular Heart rate: 78 Rhythm: regular Heart Sounds: Present: S1 & S2. Absent: gallop, rub Extremities: no ischemia, pulses intact, No edema, normal color, Full ROM - Gastrointestinal General gastrointestinal: Present: soft, non-tender, non-distended, normal bowel sounds - Genitourinary Female genitourinary: normal - Integumentary Integumentary: clear, warm, dry - Musculoskeletal Musculoskeletal: 1, strength equal bilaterally - Neurologic Neurologic: moves all extremities - Psychiatric Psychiatric: appropriate mood/affect, intact judgment & insight, memory intact, agitated - Allied health notes Allied health notes reviewed: nursing, case management - Labs CBC & Chem 7: 09/12/18 05:46 09/12/18 05:46 Labs: Abnormal lab results 09/12/18 09/12/18 Range/Units 05:46 05:46 WBC 12.5 H (4.5-11.0) K/mm3 RBC 3.40 L (3.65-5.03) M/mm3 Hgb 9.9 L (10.1-14.3) gm/dl Lymph % (Auto) 9.0 L (13.4-35.0) % Lymph # 1.1 L (1.2-5.4) K/mm3 Seg Neutrophils % 87.0 H (40.0-70.0) % Seg Neutrophils # 10.9 H (1.8-7.7) K/mm3 Sodium 136 L (137-145) mmol/L Chloride 108.4 H (98-107) mmol/L Carbon Dioxide 17 L (22-30) mmol/L Glucose 136 H (65-100) mg/dL Total Protein 5.1 L (6.3-8.2) g/dL Albumin 2.0 L (3.9-5) g/dL
[2018-09-12] MEDS: D5/0.45NS 1,000 ML IV SCH (15:19)
--- NOTE | 2018-09-12 15:55 | Progress Note ---
Assessment and Plan Acute hypoxic respiratory failure, post op s/p extubation Sepsis Peritonitis/Perforated viscus Acute toxic-metabolic encephalopathy Hyperchloremia Acute renal insufficiency h/o hypertension h/o sciatica h/o osteoporosis Chronic back pain - stat 12 lead EKG - If A-fib get thyroid studies, rate control with prn metoprolol in short term and consult cardiology. Anticoagulation if not surgicaly contraindicated (new onset A-fib in this settings portends a poorer prognosis) - BIPAP prn for increase work of breathing - tentative endoscopy per surgeon - continue aspiration precautions - mid-line placed - continue empiric AB's and follow cultures - trend CRP & lactate levels to aid clinical decision making - continue supplemental oxygen to keep O2 sat' > 90% - continue Incentive spirometry - OOB to chair, PT consult placed - Discontinue moran catheter once ok with surgeon - continue to limit narcotic analgeia and avoid benzodiazepines - mobility protocols for pressure ulcer prophylaxis - Maintenance of sleep- wake pattern; avoid delirium - Avoid nephrotoxins, adjust all medications for GFR and CrCl - VTE prophylaxis-heparin - prn Analgesia - continue Stress ulcer prophylaxis .... continue to watch closely in ICU; age, new onset A-fib, delirium portend poorer prognosis .... care plan discussed with patient and family at bedside The high probability of a clinically significant, sudden or life-threatening deterioration of the [cardiac, neurology] system(s) required my full and direct attention, intervention and personal management. The aggregate critical care time was [34] minutes without overlap. Time includes spent on; [x] Data Review and interpretation [x] Patient assessment and monitoring of vital signs [x] Documentation [x] Medication orders and management Subjective Date of service: 09/12/18 Principal diagnosis: Sepsis; Peritonitis; Acute metabolic encephaloapthy; Obesity Interval history: Patient is seen today for: Sepsis; Peritonitis; Acute metabolic encephaloapthy; Obesity Seen and examined at bedside; 24hour events reviewed; nursing and respiratory care staff consulted; no adverse overnight events reported to me; resting peacefully in bed; more coherent; is visiting; now with tachycardia and likely A-fib; no N/V/F/C Objective Vital Signs - 12hr 09/12/18 09/12/18 09/12/18 04:00 04:30 05:00 Temperature Pulse Rate 98 H 95 H 112 H Pulse Rate [ 102 H From Monitor] Respiratory 23 26 H 21 Rate Blood Pressure 160/73 161/66 161/66 O2 Sat by Pulse 98 97 97 Oximetry 09/12/18 09/12/18 09/12/18 05:30 06:00 06:30 Temperature Pulse Rate 95 H 112 H 90 Pulse Rate [ From Monitor] Respiratory 24 20 29 H Rate Blood Pressure 173/75 165/68 170/67 O2 Sat by Pulse 98 98 97 Oximetry 09/12/18 09/12/18 09/12/18 07:00 07:30 07:58 Temperature 99.2 F Pulse Rate 113 H 110 H Pulse Rate [ From Monitor] Respiratory 33 H 32 H Rate Blood Pressure 158/73 170/67 O2 Sat by Pulse 98 98 Oximetry 09/12/18 09/12/18 09/12/18 08:00 08:30 09:00 Temperature Pulse Rate 99 H 106 H 130 H Pulse Rate [ From Monitor] Respiratory 23 39 H 40 H Rate Blood Pressure 170/67 167/67 167/67 O2 Sat by Pulse 98 98 99 Oximetry 09/12/18 09/12/18 09/12/18 09:05 09:30 10:00 Temperature Pulse Rate 148 H 147 H Pulse Rate [ From Monitor] Respiratory 53 H 48 H Rate Blood Pressure 180/89 175/97 O2 Sat by Pulse 99 98 98 Oximetry 09/12/18 09/12/18 09/12/18 10:30 11:00 11:30 Temperature Pulse Rate 125 H 106 H 100 H Pulse Rate [ From Monitor] Respiratory 39 H 38 H 26 H Rate Blood Pressure 184/89 149/82 149/82 O2 Sat by Pulse 98 98 98 Oximetry 09/12/18 09/12/18 09/12/18 12:00 12:30 13:00 Temperature 98.1 F Pulse Rate 124 H 118 H 110 H Pulse Rate [ 117 H From Monitor] Respiratory 29 H 32 H 36 H Rate Blood Pressure 158/74 169/76 194/89 O2 Sat by Pulse 99 99 98 Oximetry 09/12/18 09/12/18 09/12/18 13:30 14:00 14:30 Temperature Pulse Rate 107 H 105 H 121 H Pulse Rate [ From Monitor] Respiratory 36 H 33 H 19 Rate Blood Pressure 179/85 183/76 176/77 O2 Sat by Pulse 98 99 96 Oximetry Constitutional: no acute distress, alert, other (on 2L nC, resting peacefully in bed at time of my exam) Eyes: non-icteric ENT: oropharynx moist, other (NGT in place) Neck: supple, no JVD, other (short neck with large neck circumference) Effort: mildly labored Ascultation: Bilateral: clear, diminished breath sounds (at the bases) Percussion: Bilateral: not dull Cardiovascular: irregular rhythm (irregularly irregular), other (S1,S2, no murmurs, gallops or rubs) Gastrointestinal: absent bowel sounds, hypoactive bowel sounds, tender (mildly), non-distended, other (BETTY drain in place) Integumentary: normal Extremities: no cyanosis, no edema, pink and warm, no ischemia or petechiae Neurologic: non-focal exam (grossly), pupils equal and round, motor strength normal and, other (obesy one step command, delirium) Psychiatric: mood appropriate, affect normal CBC and BMP: 09/12/18 05:46 09/12/18 05:46 ABG, PT/INR, D-dimer: PT/INR, D-dimer PT 13.5 Sec. (12.2-14.9) 09/08/18 23:16 INR 1.06 (0.87-1.13) 09/08/18 23:16 Abnormal lab findings: Abnormal Labs 09/08/18 09/08/18 09/08/18 22:08 22:08 23:01 WBC 14.8 H RBC Hgb Hct Lymph % (Auto) Lymph # Seg Neutrophils % 79.8 H Seg Neuts % (Manual) Lymphocytes % (Manual) Seg Neutrophils # 11.8 H Seg Neutrophils # Man Lymphocytes # (Manual) Sodium 134 L Potassium Chloride Carbon Dioxide 20 L BUN 41 H Creatinine 1.6 H Glucose 126 H Alkaline Phosphatase 131 H Total Creatine Kinase 21 L Total Protein Albumin 3.2 L Urine WBC (Auto) > 182.0 H U Epithel Cells (Auto) 60.0 H 09/09/18 09/09/18 09/09/18 07:18 07:18 17:09 WBC 29.7 H 22.6 H RBC 3.46 L Hgb Hct Lymph % (Auto) Lymph # Seg Neutrophils % Seg Neuts % (Manual) 96.0 H 94.0 H Lymphocytes % (Manual) 1.0 L 3.0 L Seg Neutrophils # Seg Neutrophils # Man 28.5 H 21.2 H Lymphocytes # (Manual) 0.3 L 0.7 L Sodium 136 L Potassium 5.4 H Chloride 107.1 H Carbon Dioxide 19 L BUN 35 H Creatinine 1.5 H Glucose 113 H Alkaline Phosphatase Total Creatine Kinase Total Protein Albumin Urine WBC (Auto) U Epithel Cells (Auto) 09/10/18 09/10/18 09/12/18 08:08 08:08 05:46 WBC 18.6 H 12.5 H RBC 3.36 L 3.40 L Hgb 9.9 L 9.9 L Hct 29.7 L Lymph % (Auto) 9.0 L Lymph # 1.1 L Seg Neutrophils % 87.0 H Seg Neuts % (Manual) 96.0 H Lymphocytes % (Manual) 2.0 L Seg Neutrophils # 10.9 H Seg Neutrophils # Man 17.9 H Lymphocytes # (Manual) 0.4 L Sodium Potassium Chloride 114.7 H Carbon Dioxide 17 L BUN 30 H Creatinine 1.3 H Glucose 148 H Alkaline Phosphatase Total Creatine Kinase Total Protein 5.1 L D Albumin 2.2 L Urine WBC (Auto) U Epithel Cells (Auto) 09/12/18 05:46 WBC RBC Hgb Hct Lymph % (Auto) Lymph # Seg Neutrophils % Seg Neuts % (Manual) Lymphocytes % (Manual) Seg Neutrophils # Seg Neutrophils # Man Lymphocytes # (Manual) Sodium 136 L Potassium Chloride 108.4 H Carbon Dioxide 17 L BUN Creatinine Glucose 136 H Alkaline Phosphatase Total Creatine Kinase Total Protein 5.1 L Albumin 2.0 L Urine WBC (Auto) U Epithel Cells (Auto) Chest x-ray: image reviewed (no acute process) Allied health notes reviewed: nursing
[2018-09-12] MEDS: LOPRESSOR IV PRN ×2 (18:13→23:14)
[2018-09-13] MEDS: ZOSYN/NS 2.25 GM/50ML 2.25 GM/50 ML BAG IV SCH ×4 (05:24→23:18)
[2018-09-13] MEDS: D5/0.45NS 1,000 ML IV SCH ×2 (06:12→20:06)
--- NOTE | 2018-09-13 07:57 | Progress Note ---
Assessment and Plan - Patient Problems (1) Perforated duodenal ulcer Current Visit: Yes Status: Acute Plan to address problem: POD#3 s/p ex lap with grahm patch repair of perforated duodenal ulcer. stable with down trending wbc, afebrile. agitation likely due to hx of dementia, and sundowning. UGI ordered and scheduled to be performed today. If negative will start on clear liquids. On Protonix (2) SIRS (systemic inflammatory response syndrome) Current Visit: Yes Status: Acute Plan to address problem: On Zosyn wbc trending down (3) HTN (hypertension) Current Visit: Yes Status: Chronic Qualifiers: Hypertension type: essential hypertension Qualified Code(s): I10 - Essential (primary) hypertension Plan to address problem: IVLopressor pRn Resume losartan 100 qd from tomorrow (4) TAYLOR (generalized anxiety disorder) Current Visit: Yes Status: Chronic Plan to address problem: Ativan prn (5) DVT prophylaxis Current Visit: No Status: Acute Plan to address problem: On Scd's and GI prophylaxis Subjective Date of service: 09/13/18 Principal diagnosis: Sepsis; Peritonitis; Acute metabolic encephaloapthy; Obesity Interval history: POD#3 s/p ex lap with toni patch repair of perforated duodenal ulcer. stable with down trending wbc, afebrile. agitation likely due to hx of dementia, and sundowning. UGI ordered and scheduled to be performed today. If negative will start on clear liquids. Objective - Constitutional Vitals: Vital Signs - 12hr 09/12/18 09/12/18 09/12/18 20:00 20:05 20:15 Temperature 98.3 F Pulse Rate 97 H 112 H 111 H Pulse Rate [ 97 H From Monitor] Respiratory 33 H 42 H Rate Blood Pressure 165/69 165/69 O2 Sat by Pulse 97 99 Oximetry 09/12/18 09/12/18 09/12/18 20:31 20:45 21:01 Temperature Pulse Rate 104 H 101 H 99 H Pulse Rate [ From Monitor] Respiratory 48 H 48 H 31 H Rate Blood Pressure 165/69 165/69 165/69 O2 Sat by Pulse 98 99 99 Oximetry 09/12/18 09/12/18 09/12/18 21:15 21:31 21:45 Temperature Pulse Rate 113 H 123 H 94 H Pulse Rate [ From Monitor] Respiratory 39 H 30 H 35 H Rate Blood Pressure 165/69 165/69 165/69 O2 Sat by Pulse 98 99 99 Oximetry 09/12/18 09/12/18 09/12/18 22:01 22:15 22:31 Temperature Pulse Rate 111 H 103 H 136 H Pulse Rate [ From Monitor] Respiratory 40 H 31 H 31 H Rate Blood Pressure 175/78 182/85 174/86 O2 Sat by Pulse 97 97 99 Oximetry 09/12/18 09/12/18 09/12/18 22:45 23:00 23:14 Temperature Pulse Rate 97 H 128 H 145 H Pulse Rate [ From Monitor] Respiratory 30 H 37 H Rate Blood Pressure 174/86 180/96 180/96 O2 Sat by Pulse 99 97 Oximetry 09/12/18 09/12/18 09/12/18 23:15 23:31 23:45 Temperature Pulse Rate 114 H 93 H 95 H Pulse Rate [ From Monitor] Respiratory 35 H 36 H 33 H Rate Blood Pressure 180/96 166/80 166/80 O2 Sat by Pulse 99 99 98 Oximetry 09/13/18 09/13/18 09/13/18 00:00 00:07 00:15 Temperature 98.1 F Pulse Rate 94 H 96 H 101 H Pulse Rate [ 98 H From Monitor] Respiratory 28 H 21 20 Rate Blood Pressure 159/67 159/67 159/67 O2 Sat by Pulse 97 99 98 Oximetry 09/13/18 09/13/18 09/13/18 00:31 00:45 01:00 Temperature Pulse Rate 105 H 102 H 88 Pulse Rate [ From Monitor] Respiratory 22 35 H 23 Rate Blood Pressure 159/67 159/67 149/60 O2 Sat by Pulse 99 98 97 Oximetry 09/13/18 09/13/18 09/13/18 01:15 01:31 01:45 Temperature Pulse Rate 98 H 104 H 106 H Pulse Rate [ From Monitor] Respiratory 29 H 33 H 16 Rate Blood Pressure 159/67 159/67 159/67 O2 Sat by Pulse 98 99 98 Oximetry 09/13/18 09/13/18 09/13/18 02:00 02:15 02:31 Temperature Pulse Rate 89 112 H 102 H Pulse Rate [ From Monitor] Respiratory 26 H 31 H 18 Rate Blood Pressure 146/67 146/67 146/67 O2 Sat by Pulse 98 99 99 Oximetry 09/13/18 09/13/18 09/13/18 02:45 03:00 03:15 Temperature Pulse Rate 100 H 89 96 H Pulse Rate [ From Monitor] Respiratory 21 28 H 32 H Rate Blood Pressure 146/67 156/70 156/70 O2 Sat by Pulse 99 97 99 Oximetry 09/13/18 09/13/18 09/13/18 03:31 03:45 04:00 Temperature 98.7 F Pulse Rate 96 H 105 H 95 H Pulse Rate [ 95 H From Monitor] Respiratory 32 H 33 H 29 H Rate Blood Pressure 156/70 156/70 164/76 O2 Sat by Pulse 99 99 98 Oximetry 09/13/18 09/13/18 09/13/18 04:15 04:31 04:45 Temperature Pulse Rate 94 H 105 H 114 H Pulse Rate [ From Monitor] Respiratory 34 H 29 H 26 H Rate Blood Pressure 164/76 164/76 164/76 O2 Sat by Pulse 99 99 99 Oximetry 09/13/18 09/13/18 09/13/18 05:00 05:15 05:31 Temperature Pulse Rate 98 H 118 H 94 H Pulse Rate [ From Monitor] Respiratory 28 H 33 H 18 Rate Blood Pressure 150/73 150/73 150/73 O2 Sat by Pulse 97 99 99 Oximetry 09/13/18 09/13/18 09/13/18 05:45 06:01 06:15 Temperature Pulse Rate 117 H 121 H 102 H Pulse Rate [ From Monitor] Respiratory 34 H 25 H 29 H Rate Blood Pressure 150/73 169/86 150/73 O2 Sat by Pulse 99 97 98 Oximetry 09/13/18 06:31 Temperature Pulse Rate 105 H Pulse Rate [ From Monitor] Respiratory 27 H Rate Blood Pressure 150/73 O2 Sat by Pulse 98 Oximetry General appearance: Present: no acute distress, well-nourished - EENT Eyes: PERRL, EOM intact ENT: hearing intact, clear oral mucosa Ears: bilateral: normal - Neck Neck: supple, normal ROM - Respiratory Respiratory effort: normal Respiratory: bilateral: CTA - Breasts Breasts: normal - Cardiovascular Rhythm: regular Heart Sounds: Present: S1 & S2. Absent: gallop, rub Extremities: pulses intact, No edema, normal color, Full ROM - Gastrointestinal General gastrointestinal: Present: soft, non-tender, non-distended, normal bowel sounds - Genitourinary Female genitourinary: normal - Integumentary Integumentary: clear, warm, dry - Musculoskeletal Musculoskeletal: 1, strength equal bilaterally - Neurologic Neurologic: moves all extremities - Psychiatric Psychiatric: memory intact, appropriate mood/affect, intact judgment & insight - Labs CBC & Chem 7: 09/12/18 05:46 09/12/18 05:46 Labs: Abnormal lab results 09/13/18 09/13/18 Range/Units 00:05 05:55 POC Glucose 129 H 173 H (70-105)
--- NOTE | 2018-09-13 10:23 | Fluoroscopy Report ---
UPPER GI SERIES HISTORY: Recent repair of perforated duodenal ulcer, evaluate for leakage of Gastrografin contrast fr om the surgical site. COMPARISON: CT abdomen pelvis dated 09/08/2018 TECHNIQUE: A modified upper GI series was performed with Gastrografin due to poor patient mobility an d cooperation. FINDINGS: Channel Development Director view: A GI tube terminates in the distal stomach. A surgical drain terminates in the right uppe r quadrant. The bowel gas pattern is unremarkable. Recent exploratory laparotomy changes are noted. Esophagus: Only the distal esophagus was visualized which is unremarkable. No significant esophageal motility abnormality. Negative for gastroesophageal reflux. Negative for hiatal hernia. Stomach: No significant mucosal abnormality. No ulceration or mass. Duodenum: There is normal distensibility and mucosal pattern throughout the duodenum. No evidence for obstruction or extravasation of contrast. Additional findings: None. 11 fluoroscopic images were saved. Fluoroscopy time 1 minute. IMPRESSION: No evidence for extravasation of contrast from the duodenum. Unremarkable modified upper GI series. Signer Name: Álvaro Quijano Jr, MD Signed: 09/13/2018 10:18 AM Workstation Name: [id number]
[2018-09-13] MEDS: COZAAR PO SCH (10:38)
[2018-09-13] MEDS: PROTONIX IV SCH ×2 (10:39→21:37)
[2018-09-13] MEDS: SODIUM CHLORIDE FLUSH SYRINGE 10 ML IV SCH ×2 (10:40→21:36)
[2018-09-13] MEDS: HEPARIN SUB-Q SCH ×2 (10:40→21:37)
--- NOTE | 2018-09-13 10:57 | Progress Note ---
Assessment and Plan 88 yo f s/p exploratory laparotomy, toni patch, peritoneal lavage, POD 4 1. sepsis 2. perforated gastric ulcer 3. chronic pain, on NSAIDs 4. UTI UGI series - negative for leak Plan: 1. DC NGT 2. start clear liquids, interface developer consult, nutritional supplements 3. prn pain control 4. DVT ppx 5. check BMP daily and replace lytes as needed 6. IS/pulm toilet Plan explained to patient and daughter at bedside Thank you, please call with questions. Subjective Date of service: 09/13/18 Narrative: Pt seen and examined. No acute complaints. Wants to drink something. Pain controlled. No f/c Objective Vital Signs - 12hr 09/12/18 09/12/18 09/12/18 23:00 23:14 23:15 Temperature Pulse Rate 128 H 145 H 114 H Pulse Rate [ From Monitor] Respiratory 37 H 35 H Rate Blood Pressure 180/96 180/96 180/96 O2 Sat by Pulse 97 99 Oximetry 09/12/18 09/12/18 09/13/18 23:31 23:45 00:00 Temperature 98.1 F Pulse Rate 93 H 95 H 94 H Pulse Rate [ 98 H From Monitor] Respiratory 36 H 33 H 28 H Rate Blood Pressure 166/80 166/80 159/67 O2 Sat by Pulse 99 98 97 Oximetry 09/13/18 09/13/18 09/13/18 00:07 00:15 00:31 Temperature Pulse Rate 96 H 101 H 105 H Pulse Rate [ From Monitor] Respiratory 21 20 22 Rate Blood Pressure 159/67 159/67 159/67 O2 Sat by Pulse 99 98 99 Oximetry 09/13/18 09/13/18 09/13/18 00:45 01:00 01:15 Temperature Pulse Rate 102 H 88 98 H Pulse Rate [ From Monitor] Respiratory 35 H 23 29 H Rate Blood Pressure 159/67 149/60 159/67 O2 Sat by Pulse 98 97 98 Oximetry 09/13/18 09/13/18 09/13/18 01:31 01:45 02:00 Temperature Pulse Rate 104 H 106 H 89 Pulse Rate [ From Monitor] Respiratory 33 H 16 26 H Rate Blood Pressure 159/67 159/67 146/67 O2 Sat by Pulse 99 98 98 Oximetry 09/13/18 09/13/18 09/13/18 02:15 02:31 02:45 Temperature Pulse Rate 112 H 102 H 100 H Pulse Rate [ From Monitor] Respiratory 31 H 18 21 Rate Blood Pressure 146/67 146/67 146/67 O2 Sat by Pulse 99 99 99 Oximetry 09/13/18 09/13/18 09/13/18 03:00 03:15 03:31 Temperature Pulse Rate 89 96 H 96 H Pulse Rate [ From Monitor] Respiratory 28 H 32 H 32 H Rate Blood Pressure 156/70 156/70 156/70 O2 Sat by Pulse 97 99 99 Oximetry 09/13/18 09/13/18 09/13/18 03:45 04:00 04:15 Temperature 98.7 F Pulse Rate 105 H 95 H 94 H Pulse Rate [ 95 H From Monitor] Respiratory 33 H 29 H 34 H Rate Blood Pressure 156/70 164/76 164/76 O2 Sat by Pulse 99 98 99 Oximetry 09/13/18 09/13/18 09/13/18 04:31 04:45 05:00 Temperature Pulse Rate 105 H 114 H 98 H Pulse Rate [ From Monitor] Respiratory 29 H 26 H 28 H Rate Blood Pressure 164/76 164/76 150/73 O2 Sat by Pulse 99 99 97 Oximetry 09/13/18 09/13/18 09/13/18 05:15 05:31 05:45 Temperature Pulse Rate 118 H 94 H 117 H Pulse Rate [ From Monitor] Respiratory 33 H 18 34 H Rate Blood Pressure 150/73 150/73 150/73 O2 Sat by Pulse 99 99 99 Oximetry 09/13/18 09/13/18 09/13/18 06:01 06:15 06:31 Temperature Pulse Rate 121 H 102 H 105 H Pulse Rate [ From Monitor] Respiratory 25 H 29 H 27 H Rate Blood Pressure 169/86 150/73 150/73 O2 Sat by Pulse 97 98 98 Oximetry 09/13/18 09/13/18 09/13/18 06:45 07:01 07:15 Temperature Pulse Rate 118 H 99 H 109 H Pulse Rate [ From Monitor] Respiratory 27 H 29 H 30 H Rate Blood Pressure 169/86 154/72 154/72 O2 Sat by Pulse 100 98 98 Oximetry 09/13/18 09/13/18 09/13/18 07:31 07:45 08:00 Temperature 98.3 F Pulse Rate 117 H 114 H 97 H Pulse Rate [ 127 H From Monitor] Respiratory 27 H 35 H 23 Rate Blood Pressure 154/72 154/72 137/75 O2 Sat by Pulse 99 99 97 Oximetry 09/13/18 09/13/18 09/13/18 08:15 08:31 08:45 Temperature Pulse Rate 101 H 100 H 98 H Pulse Rate [ From Monitor] Respiratory 32 H 22 22 Rate Blood Pressure 154/72 154/72 154/72 O2 Sat by Pulse 99 99 99 Oximetry 09/13/18 09/13/18 09/13/18 08:47 09:01 10:11 Temperature Pulse Rate 124 H 107 H Pulse Rate [ From Monitor] Respiratory 31 H 31 H Rate Blood Pressure 151/63 151/63 O2 Sat by Pulse 99 96 Oximetry 09/13/18 09/13/18 10:15 10:38 Temperature Pulse Rate 102 H 144 H Pulse Rate [ From Monitor] Respiratory 16 Rate Blood Pressure 163/73 163/73 O2 Sat by Pulse 98 Oximetry - General physical appearance Narrative Exam: Gen: AAOx3. NAD ENT: NGT without drainage CV: S1, S2+ resp: even and unlabored Abd: soft, NT, ND. incision c/d/i. BETTY serosang Ext: No c/c/e - Labs 09/12/18 05:46 09/12/18 05:46 Thyroid panel 09/12/18 Range/Units 21:11 TSH 1.320 (0.270-4.200) mlU/mL Pituitary panel 09/12/18 Range/Units 21:11 TSH 1.320 (0.270-4.200) mlU/mL
--- NOTE | 2018-09-13 11:48 | Progress Note ---
Assessment and Plan Acute hypoxic respiratory failure, post op s/p extubation Sepsis Peritonitis/Perforated viscus Acute toxic-metabolic encephalopathy Hyperchloremia Acute renal insufficiency h/o hypertension h/o sciatica h/o osteoporosis Chronic back pain - stat 12 lead EKG - If A-fib get thyroid studies, rate control with prn metoprolol in short term and consult cardiology. Anticoagulation if not surgicaly contraindicated (new onset A-fib in this settings portends a poorer prognosis) - BIPAP prn for increase work of breathing - tentative endoscopy per surgeon - continue aspiration precautions - mid-line placed - continue empiric AB's and follow cultures - trend CRP & lactate levels to aid clinical decision making - continue supplemental oxygen to keep O2 sat' > 90% - continue Incentive spirometry - OOB to chair, PT consult placed - Discontinue moran catheter once ok with surgeon - continue to limit narcotic analgeia and avoid benzodiazepines - mobility protocols for pressure ulcer prophylaxis - Maintenance of sleep- wake pattern; avoid delirium - Avoid nephrotoxins, adjust all medications for GFR and CrCl - VTE prophylaxis-heparin - prn Analgesia - continue Stress ulcer prophylaxis .... continue to watch closely in ICU; age, new onset A-fib, delirium portend poorer prognosis .... care plan discussed with patient and family at bedside The high probability of a clinically significant, sudden or life-threatening deterioration of the [cardiac, neurology] system(s) required my full and direct attention, intervention and personal management. The aggregate critical care time was [34] minutes without overlap. Time includes spent on; [x] Data Review and interpretation [x] Patient assessment and monitoring of vital signs [x] Documentation [x] Medication orders and management Subjective Date of service: 09/13/18 Principal diagnosis: Sepsis; Peritonitis; Acute metabolic encephaloapthy; Obesity Interval history: Patient is seen today for: Sepsis; Peritonitis; Acute metabolic encephaloapthy; Obesity Seen and examined at bedside; 24hour events reviewed; nursing and respiratory care staff consulted; no adverse overnight events reported to me; resting peacefully in bed; Objective Vital Signs - 12hr 09/13/18 09/13/18 09/13/18 00:00 00:07 00:15 Temperature 98.1 F Pulse Rate 94 H 96 H 101 H Pulse Rate [ 98 H From Monitor] Respiratory 28 H 21 20 Rate Blood Pressure 159/67 159/67 159/67 O2 Sat by Pulse 97 99 98 Oximetry 09/13/18 09/13/18 09/13/18 00:31 00:45 01:00 Temperature Pulse Rate 105 H 102 H 88 Pulse Rate [ From Monitor] Respiratory 22 35 H 23 Rate Blood Pressure 159/67 159/67 149/60 O2 Sat by Pulse 99 98 97 Oximetry 09/13/18 09/13/18 09/13/18 01:15 01:31 01:45 Temperature Pulse Rate 98 H 104 H 106 H Pulse Rate [ From Monitor] Respiratory 29 H 33 H 16 Rate Blood Pressure 159/67 159/67 159/67 O2 Sat by Pulse 98 99 98 Oximetry 09/13/18 09/13/18 09/13/18 02:00 02:15 02:31 Temperature Pulse Rate 89 112 H 102 H Pulse Rate [ From Monitor] Respiratory 26 H 31 H 18 Rate Blood Pressure 146/67 146/67 146/67 O2 Sat by Pulse 98 99 99 Oximetry 09/13/18 09/13/18 09/13/18 02:45 03:00 03:15 Temperature Pulse Rate 100 H 89 96 H Pulse Rate [ From Monitor] Respiratory 21 28 H 32 H Rate Blood Pressure 146/67 156/70 156/70 O2 Sat by Pulse 99 97 99 Oximetry 09/13/18 09/13/18 09/13/18 03:31 03:45 04:00 Temperature 98.7 F Pulse Rate 96 H 105 H 95 H Pulse Rate [ 95 H From Monitor] Respiratory 32 H 33 H 29 H Rate Blood Pressure 156/70 156/70 164/76 O2 Sat by Pulse 99 99 98 Oximetry 09/13/18 09/13/18 09/13/18 04:15 04:31 04:45 Temperature Pulse Rate 94 H 105 H 114 H Pulse Rate [ From Monitor] Respiratory 34 H 29 H 26 H Rate Blood Pressure 164/76 164/76 164/76 O2 Sat by Pulse 99 99 99 Oximetry 09/13/18 09/13/18 09/13/18 05:00 05:15 05:31 Temperature Pulse Rate 98 H 118 H 94 H Pulse Rate [ From Monitor] Respiratory 28 H 33 H 18 Rate Blood Pressure 150/73 150/73 150/73 O2 Sat by Pulse 97 99 99 Oximetry 09/13/18 09/13/18 09/13/18 05:45 06:01 06:15 Temperature Pulse Rate 117 H 121 H 102 H Pulse Rate [ From Monitor] Respiratory 34 H 25 H 29 H Rate Blood Pressure 150/73 169/86 150/73 O2 Sat by Pulse 99 97 98 Oximetry 09/13/18 09/13/18 09/13/18 06:31 06:45 07:01 Temperature Pulse Rate 105 H 118 H 99 H Pulse Rate [ From Monitor] Respiratory 27 H 27 H 29 H Rate Blood Pressure 150/73 169/86 154/72 O2 Sat by Pulse 98 100 98 Oximetry 09/13/18 09/13/18 09/13/18 07:15 07:31 07:45 Temperature Pulse Rate 109 H 117 H 114 H Pulse Rate [ From Monitor] Respiratory 30 H 27 H 35 H Rate Blood Pressure 154/72 154/72 154/72 O2 Sat by Pulse 98 99 99 Oximetry 09/13/18 09/13/18 09/13/18 08:00 08:15 08:31 Temperature 98.3 F Pulse Rate 97 H 101 H 100 H Pulse Rate [ 127 H From Monitor] Respiratory 23 32 H 22 Rate Blood Pressure 137/75 154/72 154/72 O2 Sat by Pulse 97 99 99 Oximetry 09/13/18 09/13/18 09/13/18 08:45 08:47 09:01 Temperature Pulse Rate 98 H 124 H Pulse Rate [ From Monitor] Respiratory 22 31 H Rate Blood Pressure 154/72 151/63 O2 Sat by Pulse 99 99 96 Oximetry 09/13/18 09/13/18 09/13/18 10:11 10:15 10:38 Temperature Pulse Rate 107 H 102 H 144 H Pulse Rate [ From Monitor] Respiratory 31 H 16 Rate Blood Pressure 151/63 163/73 163/73 O2 Sat by Pulse 98 Oximetry Constitutional: no acute distress, alert, other (on 2L nC, resting peacefully in bed at time of my exam) Eyes: non-icteric ENT: oropharynx moist, other (NGT in place) Neck: supple, no JVD, other (short neck with large neck circumference) Effort: mildly labored Ascultation: Bilateral: clear, diminished breath sounds (at the bases) Percussion: Bilateral: not dull Cardiovascular: irregular rhythm (irregularly irregular), other (S1,S2, no murmurs, gallops or rubs) Gastrointestinal: absent bowel sounds, hypoactive bowel sounds, tender (mildly), non-distended, other (BETTY drain in place) Integumentary: normal Extremities: no cyanosis, no edema, pink and warm, no ischemia or petechiae Neurologic: non-focal exam (grossly), pupils equal and round, motor strength nor mal and, other (obesy one step command, delirium) Psychiatric: mood appropriate, affect normal CBC and BMP: 09/12/18 05:46 09/12/18 05:46 ABG, PT/INR, D-dimer: PT/INR, D-dimer PT 13.5 Sec. (12.2-14.9) 09/08/18 23:16 INR 1.06 (0.87-1.13) 09/08/18 23:16 Abnormal lab findings: Abnormal Labs 09/08/18 09/08/18 09/08/18 22:08 22:08 23:01 WBC 14.8 H RBC Hgb Hct Lymph % (Auto) Lymph # Seg Neutrophils % 79.8 H Seg Neuts % (Manual) Lymphocytes % (Manual) Seg Neutrophils # 11.8 H Seg Neutrophils # Man Lymphocytes # (Manual) Sodium 134 L Potassium Chloride Carbon Dioxide 20 L BUN 41 H Creatinine 1.6 H Glucose 126 H POC Glucose Alkaline Phosphatase 131 H Total Creatine Kinase 21 L Total Protein Albumin 3.2 L Urine WBC (Auto) > 182.0 H U Epithel Cells (Auto) 60.0 H 09/09/18 09/09/18 09/09/18 07:18 07:18 17:09 WBC 29.7 H 22.6 H RBC 3.46 L Hgb Hct Lymph % (Auto) Lymph # Seg Neutrophils % Seg Neuts % (Manual) 96.0 H 94.0 H Lymphocytes % (Manual) 1.0 L 3.0 L Seg Neutrophils # Seg Neutrophils # Man 28.5 H 21.2 H Lymphocytes # (Manual) 0.3 L 0.7 L Sodium 136 L Potassium 5.4 H Chloride 107.1 H Carbon Dioxide 19 L BUN 35 H Creatinine 1.5 H Glucose 113 H POC Glucose Alkaline Phosphatase Total Creatine Kinase Total Protein Albumin Urine WBC (Auto) U Epithel Cells (Auto) 09/10/18 09/10/18 09/12/18 08:08 08:08 05:46 WBC 18.6 H 12.5 H RBC 3.36 L 3.40 L Hgb 9.9 L 9.9 L Hct 29.7 L Lymph % (Auto) 9.0 L Lymph # 1.1 L Seg Neutrophils % 87.0 H Seg Neuts % (Manual) 96.0 H Lymphocytes % (Manual) 2.0 L Seg Neutrophils # 10.9 H Seg Neutrophils # Man 17.9 H Lymphocytes # (Manual) 0.4 L Sodium Potassium Chloride 114.7 H Carbon Dioxide 17 L BUN 30 H Creatinine 1.3 H Glucose 148 H POC Glucose Alkaline Phosphatase Total Creatine Kinase Total Protein 5.1 L D Albumin 2.2 L Urine WBC (Auto) U Epithel Cells (Auto) 09/12/18 09/13/18 09/13/18 05:46 00:05 05:55 WBC RBC Hgb Hct Lymph % (Auto) Lymph # Seg Neutrophils % Seg Neuts % (Manual) Lymphocytes % (Manual) Seg Neutrophils # Seg Neutrophils # Man Lymphocytes # (Manual) Sodium 136 L Potassium Chloride 108.4 H Carbon Dioxide 17 L BUN Creatinine Glucose 136 H POC Glucose 129 H 173 H Alkaline Phosphatase Total Creatine Kinase Total Protein 5.1 L Albumin 2.0 L Urine WBC (Auto) U Epithel Cells (Auto) Allied health notes reviewed: nursing
--- NOTE | 2018-09-13 13:34 | Consultation ---
History of Present Illness Consult date: 09/13/18 Consult reason: arrhythmia History of present illness: This is an 88-year old woman who was admitted 09/08 with diffuse abdominal pain and tenderness. She has undergone exploratory laparotomy with gram patch for duodenal ulcer perforation. A cardiac consultation has been requested for abnormal ECG. 12-lead ECG is multifocal atrial tachycardia. TSH is within normal limits. There are no records of prior cardiac history or tachy-arrhythmias. An echocardiogram done 6 months ago reports a normal left ventricular systolic function, ejection fraction 55-60%. Past History Past Medical History: hypertension, hyperlipidemia, other (chronic lower back pain) Past Surgical History: hysterectomy Social history: no significant social history Family history: no significant family history Medications and Allergies Allergies Allergy/AdvReac Type Severity Reaction Status Date / Time No Known Allergies Allergy Verified 09/08/18 14:36 Home Medications Medication Instructions Recorded Confirmed Last Taken Type Adult One Daily Multivit Tab 1 tab PO QDAY 08/28/18 09/09/18 Unknown History Atenolol [Tenormin] 25 mg PO QDAY 08/28/18 09/09/18 Unknown History Gabapentin [Neurontin] 200 mg PO BID 08/28/18 09/09/18 Unknown History Losartan 100 mg PO QDAY 08/28/18 09/09/18 Unknown History Meloxicam 15 mg PO QAM 08/28/18 09/09/18 Unknown History Vitamin D (Nf) 1 tab PO QDAY 08/28/18 09/09/18 Unknown History Calc Carb/Vit D 500 mg-200 Uni 2 each PO BID #60 tablet 08/30/18 09/09/18 Unknown Rx [[place] D 500 mg-200 Unit] HYDROcodone/APAP 5-325 5 mg PO Q8HR PRN #14 08/30/18 09/09/18 Unknown Rx ALPRAZolam [Xanax TAB] 0.25 mg PO BID PRN 09/09/18 09/09/18 Unknown History Active Meds: Active Medications Acetaminophen (Tylenol) 650 mg CA Q4H PRN PRN Reason: Pain MILD(1-3)/Fever >100.5/GARRETT Heparin Sodium (Porcine) (Heparin) 5,000 unit SUB-Q Q12HR RADHA Last Admin: 09/13/18 10:40 Dose: 5,000 unit Documented by: Piperacillin Sod/Tazobactam Sod (Zosyn/Ns 2.25 Gm/50ml) 2.25 gm in 50 mls @ 100 mls/hr IV Q6HR [facility] Last Infusion: 09/13/18 05:55 Dose: Infused Documented by: Dextrose/Sodium Chloride (D5/0.45ns) 1,000 mls @ 75 mls/hr IV DIRECT [facility] Last Admin: 09/13/18 06:12 Dose: 75 mls/hr Documented by: Losartan Potassium (Cozaar) 100 mg PO QDAY [facility] Last Admin: 09/13/18 10:38 Dose: 100 mg Documented by: Metoprolol Tartrate (Lopressor) 5 mg IV Q6HR PRN PRN Reason: Tachyarrhythmias HR>130 Last Admin: 09/12/18 23:14 Dose: 5 mg Documented by: Morphine Sulfate (Morphine) 2 mg IV Q4H PRN PRN Reason: Pain , Severe (7-10) Last Admin: 09/10/18 23:06 Dose: 2 mg Documented by: Ondansetron HCl (Zofran) 4 mg IV Q4H PRN PRN Reason: Nausea And Vomiting Pantoprazole Sodium (Protonix) 40 mg IV BID [facility] Last Admin: 09/13/18 10:39 Dose: 40 mg Documented by: Sodium Chloride (Sodium Chloride Flush Syringe 10 Ml) 10 ml IV BID [facility] Last Admin: 09/13/18 10:40 Dose: 10 ml Documented by: Sodium Chloride (Sodium Chloride Flush Syringe 10 Ml) 10 ml IV PRN PRN PRN Reason: LINE FLUSH Physical Examination Vital Signs Temp Pulse Resp BP Pulse Ox 97.8 F 67 14 157/58 96 09/08/18 21:53 09/08/18 21:53 09/08/18 21:53 09/08/18 21:53 09/08/18 21:53 General appearance: no acute distress HEENT: Positive: PERRL Neck: Positive: trachea midline Cardiac: Positive: Irregularly Regular Lungs: Positive: Decreased Breath Sounds Results 09/12/18 05:46 09/12/18 05:46 Assessment and Plan Sepsis Perforated gastric ulcer Chronic pain, on NSAIDs UTI Hypertension Multi-focal atrial tachycardia Normal LVEF 55-60% by echo 02/2018. Plan: We will initiate diltiazem for management of MAT. Otherwise, conservative cardiac management.
[2018-09-13] MEDS: CARDIZEM PO SCH ×2 (17:04→21:37)
[2018-09-14] MEDS: ZOSYN/NS 2.25 GM/50ML 2.25 GM/50 ML BAG IV SCH ×4 (05:09→23:22)
[2018-09-14] MEDS: CARDIZEM PO SCH ×3 (05:09→21:34)
--- NOTE | 2018-09-14 09:10 | Progress Note ---
Assessment and Plan Sepsis Perforated gastric ulcer post exploratory laparotomy with gram patch Chronic pain, on NSAIDs UTI Hypertension Multi-focal atrial tachycardia Normal LVEF 55-60% by echo 02/2018. Recommendations: Continue Cardizem for suppression of MAT. Otherwise, conservative cardiac management. Subjective Date of service: 09/14/18 Principal diagnosis: Sepsis; Peritonitis; Acute metabolic encephaloapthy; Obesity Interval history: Patient denies chest pain, shortness of breath and palpitations. Objective Vital Signs Temp Pulse Resp BP BP Pulse Ox 09/14/18 06:51 98.1 F 97 H 22 167/66 97 09/14/18 03:50 96.9 F L 95 H 17 165/70 96 09/13/18 23:51 97.7 F 75 18 141/67 95 09/13/18 20:33 98.7 F 71 17 166/91 71 L 09/13/18 17:55 97.4 F L 145 H 18 163/81 96 09/13/18 11:45 98.8 F 98 H 20 146/67 09/13/18 11:11 119 H 18 163/76 100 09/13/18 11:01 115 H 14 163/76 97 09/13/18 10:51 134 H 30 H 154/75 99 09/13/18 10:41 135 H 48 H 151/63 99 09/13/18 10:38 144 H 163/73 09/13/18 10:31 116 H 21 163/73 100 09/13/18 10:15 102 H 16 163/73 98 09/13/18 10:11 107 H 31 H 151/63 - Physical Examination General: No Apparent Distress HEENT: Positive: PERRL Neck: Positive: trachea midline Cardiac: Positive: Irregularly Regular Lungs: Positive: Decreased Breath Sounds Neuro: Positive: Weakness - Allied health notes Allied health notes reviewed: nursing
[2018-09-14] MEDS: HEPARIN SUB-Q SCH ×2 (09:15→21:35)
[2018-09-14] MEDS: COZAAR PO SCH (09:16)
[2018-09-14] MEDS: PROTONIX IV SCH ×2 (09:16→21:34)
[2018-09-14] MEDS: SODIUM CHLORIDE FLUSH SYRINGE 10 ML IV SCH (09:17)
[2018-09-14] MEDS: D5/0.45NS 1,000 ML IV SCH (09:32)
[2018-09-14 09:42] LABS: Hemoglobin 10.1 gm/dl (10.1-14.3); Mean Corpuscular HGB Conc 34 % (30-34); Mean Corpuscular Volume 87 fl (79-97); Red Blood Count 3.45 M/mm3 (3.65-5.03)
[2018-09-14 10:07] LABS: BUN/Creatinine Ratio 10; Blood Urea Nitrogen 5 mg/dL (7-17); Calcium 8.4 mg/dL (8.4-10.2); Hemolysis Index 33
[2018-09-14 10:30] LABS: Platelet Count 223 K/mm3 (140-440)
[2018-09-14] MEDS ORDERED: POTASSIUM CHLORIDE PO ONE (10:37)
--- NOTE | 2018-09-14 10:41 | Progress Note ---
Assessment and Plan 88 yo f s/p exploratory laparotomy, toni patch, peritoneal lavage, POD 5 1. sepsis 2. perforated gastric ulcer 3. chronic pain, on NSAIDs 4. UTI UGI series - negative for leak Plan: 1. adv to full liquids - will be discharged on full liquid diet for one week 2. prn pain control 3. DVT ppx 4. replace K 5. IS/pulm toilet 6. Spoke with patient and her son. They would like patient to be discharged to home with PT Ok to DC in 24 hours from surgery standpoint Thank you, please call with questions. Subjective Date of service: 09/14/18 Narrative: Pt seen and examined. Wants to go home. No f/c, n/v. Tolerating clear liquids. No abdominal pain. Objective Vital Signs - 12hr 09/13/18 09/14/18 09/14/18 23:51 03:50 06:51 Temperature 97.7 F 96.9 F L 98.1 F Pulse Rate 75 95 H 97 H Respiratory 18 17 22 Rate Blood Pressure 141/67 165/70 167/66 O2 Sat by Pulse 95 96 97 Oximetry 09/14/18 09:16 Temperature Pulse Rate 97 H Respiratory Rate Blood Pressure 167/66 O2 Sat by Pulse Oximetry - General physical appearance Narrative Exam: Gen: AAOx3. NAD CV: s1, S2+ Resp: even and unlabored Abd: soft, NT, ND. incision c/d/i with dameon in place. [place] serosang Ext: no c/c/e - Labs 09/14/18 09:07 09/14/18 09:07 Diabetes panel 09/14/18 Range/Units 09:07 Sodium 139 (137-145) mmol/L Potassium 3.0 L (3.6-5.0) mmol/L Chloride 109.9 H (98-107) mmol/L Carbon Dioxide 18 L (22-30) mmol/L BUN 5 L (7-17) mg/dL Creatinine 0.5 L (0.7-1.2) mg/dL Glucose 149 H (65-100) mg/dL Calcium 8.4 (8.4-10.2) mg/dL Calcium panel 09/14/18 Range/Units 09:07 Calcium 8.4 (8.4-10.2) mg/dL Pituitary panel 09/14/18 Range/Units 09:07 Sodium 139 (137-145) mmol/L Potassium 3.0 L (3.6-5.0) mmol/L Chloride 109.9 H (98-107) mmol/L Carbon Dioxide 18 L (22-30) mmol/L BUN 5 L (7-17) mg/dL Creatinine 0.5 L (0.7-1.2) mg/dL Glucose 149 H (65-100) mg/dL Calcium 8.4 (8.4-10.2) mg/dL Adrenal panel 09/14/18 Range/Units 09:07 Sodium 139 (137-145) mmol/L Potassium 3.0 L (3.6-5.0) mmol/L Chloride 109.9 H (98-107) mmol/L Carbon Dioxide 18 L (22-30) mmol/L BUN 5 L (7-17) mg/dL Creatinine 0.5 L (0.7-1.2) mg/dL Glucose 149 H (65-100) mg/dL Calcium 8.4 (8.4-10.2) mg/dL
--- NOTE | 2018-09-14 14:02 | Progress Note ---
Assessment and Plan Patient alert, awake and sitting up in chair. Patient alert, awake. Appears confused. No acute respiratory distress. On room air. O2 saturation 96%. - Patient Problems (1) SIRS (systemic inflammatory response syndrome) Current Visit: Yes Status: Acute Plan to address problem: Improving. Patient is on zosyn. (2) ALPESH (acute kidney injury) Current Visit: Yes Status: Acute Plan to address problem: Management as per Nephrology. (3) Abdominal pain Current Visit: Yes Status: Acute Plan to address problem: Patient undergone laporatomy and repair of perforated viscus. (4) Perforated viscus Current Visit: Yes Status: Acute Plan to address problem: Patient undergone laporatomy and repair of perforated viscus. (5) HTN (hypertension) Current Visit: Yes Status: Chronic Qualifiers: Hypertension type: essential hypertension Qualified Code(s): I10 - Essential (primary) hypertension Plan to address problem: Management as per primary care. Subjective Date of service: 09/14/18 Principal diagnosis: Sepsis; Peritonitis; Acute metabolic encephaloapthy; Obesity Interval history: Patient alert, awake and sitting up in chair. Patient alert, awake. Appears confused. No acute respiratory distress. On room air. O2 saturation 96%. Objective Vital Signs - 12hr 09/14/18 09/14/18 09/14/18 03:50 06:51 09:16 Temperature 96.9 F L 98.1 F Pulse Rate 95 H 97 H 97 H Respiratory 17 22 Rate Blood Pressure 165/70 167/66 167/66 O2 Sat by Pulse 96 97 Oximetry 09/14/18 09/14/18 11:05 13:11 Temperature 97.9 F Pulse Rate 113 H 113 H Respiratory 20 Rate Blood Pressure 132/54 132/54 O2 Sat by Pulse 96 Oximetry Constitutional: no acute distress, alert Eyes: non-icteric ENT: oropharynx moist, other (NGT in place) Neck: supple, no JVD, other (short neck with large neck circumference) Effort: mildly labored Ascultation: Bilateral: diminished breath sounds (at the bases) Percussion: Bilateral: not dull Cardiovascular: irregular rhythm (irregularly irregular), other (S1,S2, no murmurs, gallops or rubs) Gastrointestinal: absent bowel sounds, hypoactive bowel sounds, tender (mildly), non-distended, other (BETTY drain in place) Integumentary: normal Extremities: no cyanosis, no edema, pink and warm, no ischemia or petechiae Neurologic: non-focal exam (grossly), pupils equal and round, motor strength normal and, other (obesy one step command, delirium) Psychiatric: mood appropriate, affect normal CBC and BMP: 09/14/18 09:07 09/14/18 09:07 ABG, PT/INR, D-dimer: PT/INR, D-dimer PT 13.5 Sec. (12.2-14.9) 09/08/18 23:16 INR 1.06 (0.87-1.13) 09/08/18 23:16 Abnormal lab findings: Abnormal Labs 09/08/18 09/08/18 09/08/18 22:08 22:08 23:01 WBC 14.8 H RBC Hgb Hct Lymph % (Auto) Lymph # Seg Neutrophils % 79.8 H Seg Neuts % (Manual) Lymphocytes % (Manual) Seg Neutrophils # 11.8 H Seg Neutrophils # Man Lymphocytes # (Manual) Sodium 134 L Potassium Chloride Carbon Dioxide 20 L BUN 41 H Creatinine 1.6 H Glucose 126 H POC Glucose Alkaline Phosphatase 131 H Total Creatine Kinase 21 L Total Protein Albumin 3.2 L Urine WBC (Auto) > 182.0 H U Epithel Cells (Auto) 60.0 H 09/09/18 09/09/18 09/09/18 07:18 07:18 17:09 WBC 29.7 H 22.6 H RBC 3.46 L Hgb Hct Lymph % (Auto) Lymph # Seg Neutrophils % Seg Neuts % (Manual) 96.0 H 94.0 H Lymphocytes % (Manual) 1.0 L 3.0 L Seg Neutrophils # Seg Neutrophils # Man 28.5 H 21.2 H Lymphocytes # (Manual) 0.3 L 0.7 L Sodium 136 L Potassium 5.4 H Chloride 107.1 H Carbon Dioxide 19 L BUN 35 H Creatinine 1.5 H Glucose 113 H POC Glucose Alkaline Phosphatase Total Creatine Kinase Total Protein Albumin Urine WBC (Auto) U Epithel Cells (Auto) 09/10/18 09/10/18 09/12/18 08:08 08:08 05:46 WBC 18.6 H 12.5 H RBC 3.36 L 3.40 L Hgb 9.9 L 9.9 L Hct 29.7 L Lymph % (Auto) 9.0 L Lymph # 1.1 L Seg Neutrophils % 87.0 H Seg Neuts % (Manual) 96.0 H Lymphocytes % (Manual) 2.0 L Seg Neutrophils # 10.9 H Seg Neutrophils # Man 17.9 H Lymphocytes # (Manual) 0.4 L Sodium Potassium Chloride 114.7 H Carbon Dioxide 17 L BUN 30 H Creatinine 1.3 H Glucose 148 H POC Glucose Alkaline Phosphatase Total Creatine Kinase Total Protein 5.1 L D Albumin 2.2 L Urine WBC (Auto) U Epithel Cells (Auto) 09/12/18 09/13/18 09/13/18 05:46 00:05 05:55 WBC RBC Hgb Hct Lymph % (Auto) Lymph # Seg Neutrophils % Seg Neuts % (Manual) Lymphocytes % (Manual) Seg Neutrophils # Seg Neutrophils # Man Lymphocytes # (Manual) Sodium 136 L Potassium Chloride 108.4 H Carbon Dioxide 17 L BUN Creatinine Glucose 136 H POC Glucose 129 H 173 H Alkaline Phosphatase Total Creatine Kinase Total Protein 5.1 L Albumin 2.0 L Urine WBC (Auto) U Epithel Cells (Auto) 09/14/18 09/14/18 09:07 09:07 WBC 11.8 H RBC 3.45 L Hgb Hct 30.0 L Lymph % (Auto) Lymph # Seg Neutrophils % Seg Neuts % (Manual) Lymphocytes % (Manual) Seg Neutrophils # Seg Neutrophils # Man Lymphocytes # (Manual) Sodium Potassium 3.0 L Chloride 109.9 H Carbon Dioxide 18 L BUN 5 L Creatinine 0.5 L Glucose 149 H POC Glucose Alkaline Phosphatase Total Creatine Kinase Total Protein Albumin Urine WBC (Auto) U Epithel Cells (Auto) Chest x-ray: report reviewed (Reported no acute findings.), image reviewed Allied health notes reviewed: nursing
--- NOTE | 2018-09-14 14:38 | Progress Note ---
Assessment and Plan Assessment and plan: Sepsis due to perforated duodenal ulcer. On Zosyn Blood cultures negative perforated duodenal ulcer s/p exploratory lap, patch, peritoneal lavage by Dr. oneal on 09/09/18 Hypertension Monitor BP full code status History Interval history: Mild abdominal pain Hospitalist Physical - Physical exam Narrative exam: Gen: Not in acute distress, lying in bed, HEENT: Normocephalic, atraumatic Neck: supple, no JVD Heart: S1 and S2 reg, no murmurs, rubs or gallop Lungs: Clear to auscultation, no wheeze Abd: soft, mild tender, dameon on abdomen, bowel sounds present, surgical drain Ext: No edema, no clubbing, no cyanosis Neuro: Awake,alert, Oriented X 3. No focal neuro signs Psych: normal mood - Constitutional Vitals: Temp Pulse Resp BP Pulse Ox 97.9 F 113 H 20 132/54 96 09/14/18 11:05 09/14/18 13:11 09/14/18 11:05 09/14/18 13:11 09/14/18 11:05 General appearance: Present: no acute distress Results - Labs CBC & Chem 7: 09/14/18 09:07 09/14/18 09:07 Labs: Laboratory Last Values WBC 11.8 K/mm3 (4.5-11.0) H 09/14/18 09:07 RBC 3.45 M/mm3 (3.65-5.03) L 09/14/18 09:07 Hgb 10.1 gm/dl (10.1-14.3) 09/14/18 09:07 Hct 30.0 % (30.3-42.9) L 09/14/18 09:07 MCV 87 fl (79-97) 09/14/18 09:07 MCH 29 pg (28-32) 09/14/18 09:07 MCHC 34 % (30-34) 09/14/18 09:07 RDW 14.0 % (13.2-15.2) 09/14/18 09:07 Plt Count 223 K/mm3 (140-440) 09/14/18 09:07 Lymph % (Auto) 9.0 % (13.4-35.0) L 09/12/18 05:46 [place] % (Auto) 3.3 % (0.0-7.3) 09/12/18 05:46 Eos % (Auto) 0.3 % (0.0-4.3) 09/12/18 05:46 Baso % (Auto) 0.4 % (0.0-1.8) 09/12/18 05:46 Lymph # 1.1 K/mm3 (1.2-5.4) L 09/12/18 05:46 [place] # 0.4 K/mm3 (0.0-0.8) 09/12/18 05:46 Eos # 0.0 K/mm3 (0.0-0.4) 09/12/18 05:46 Baso # 0.1 K/mm3 (0.0-0.1) 09/12/18 05:46 Add Manual Diff Complete 09/10/18 08:08 Total Counted 100 09/10/18 08:08 Seg Neutrophils % 87.0 % (40.0-70.0) H 09/12/18 05:46 Seg Neuts % (Manual) 96.0 % (40.0-70.0) H 09/10/18 08:08 0 % 09/10/18 08:08 2.0 % (13.4-35.0) L 09/10/18 08:08 Reactive Lymphs % (Man) 0 % 09/10/18 08:08 2.0 % (0.0-7.3) 09/10/18 08:08 0 % (0.0-4.3) 09/10/18 08:08 0 % (0.0-1.8) 09/10/18 08:08 0 % 09/10/18 08:08 0 % 09/10/18 08:08 0 % 09/10/18 08:08 0 % 09/10/18 08:08 Nucleated RBC % Not Reportable 09/10/18 08:08 Seg Neutrophils # 10.9 K/mm3 (1.8-7.7) H 09/12/18 05:46 Seg Neutrophils # Man 17.9 K/mm3 (1.8-7.7) H 09/10/18 08:08 Band Neutrophils # 0.0 K/mm3 09/10/18 08:08 0.4 K/mm3 (1.2-5.4) L 09/10/18 08:08 Abs React Lymphs (Man) 0.0 K/mm3 09/10/18 08:08 0.4 K/mm3 (0.0-0.8) 09/10/18 08:08 0.0 K/mm3 (0.0-0.4) 09/10/18 08:08 0.0 K/mm3 (0.0-0.1) 09/10/18 08:08 0.0 K/mm3 09/10/18 08:08 0.0 K/mm3 09/10/18 08:08 0.0 K/mm3 09/10/18 08:08 Blast Cells # 0.0 K/mm3 09/10/18 08:08 WBC Morphology Not Reportable 09/10/18 08:08 Hypersegmented Neuts Not Reportable 09/10/18 08:08 Hyposegmented Neuts Not Reportable 09/10/18 08:08 Hypogranular Neuts Not Reportable 09/10/18 08:08 Not Reportable 09/10/18 08:08 Not Reportable 09/10/18 08:08 Not Reportable 09/10/18 08:08 Not Reportable 09/10/18 08:08 Not Reportable 09/10/18 08:08 Not Reportable 09/10/18 08:08 Consistent w auto 09/10/18 08:08 Not Reportable 09/10/18 08:08 Plt Clumps, EDTA Not Reportable 09/10/18 08:08 Not Reportable 09/10/18 08:08 Not Reportable 09/10/18 08:08 Not Reportable 09/10/18 08:08 Plt Morphology Comment Not Reportable 09/10/18 08:08 RBC Morphology Normal 09/10/18 08:08 Dimorphic RBCs Not Reportable 09/10/18 08:08 Not Reportable 09/10/18 08:08 Not Reportable 09/10/18 08:08 Not Reportable 09/10/18 08:08 Not Reportable 09/10/18 08:08 Not Reportable 09/10/18 08:08 Not Reportable 09/10/18 08:08 Not Reportable 09/10/18 08:08 Not Reportable 09/10/18 08:08 Not Reportable 09/10/18 08:08 Not Reportable 09/10/18 08:08 Not Reportable 09/10/18 08:08 Not Reportable 09/10/18 08:08 Not Reportable 09/10/18 08:08 Not Reportable 09/10/18 08:08 Not Reportable 09/10/18 08:08 Not Reportable 09/10/18 08:08 Not Reportable 09/10/18 08:08 Not Reportable 09/10/18 08:08 Not Reportable 09/10/18 08:08 Acanthocytes (Spur) Not Reportable 09/10/18 08:08 Rouleaux Not Reportable 09/10/18 08:08 Not Reportable 09/10/18 08:08 Not Reportable 09/10/18 08:08 Not Reportable 09/10/18 08:08 Not Reportable 09/10/18 08:08 Hem Pathologist Commnt No 09/10/18 08:08 PT 13.5 Sec. (12.2-14.9) 09/08/18 23:16 INR 1.06 (0.87-1.13) 09/08/18 23:16 APTT 28.6 Sec. (24.2-36.6) 09/08/18 22:08 Sodium 139 mmol/L (137-145) 09/14/18 09:07 Potassium 3.0 mmol/L (3.6-5.0) L 09/14/18 09:07 Chloride 109.9 mmol/L (98-107) H 09/14/18 09:07 Carbon Dioxide 18 mmol/L (22-30) L 09/14/18 09:07 14 mmol/L 09/14/18 09:07 BUN 5 mg/dL (7-17) L 09/14/18 09:07 0.5 mg/dL (0.7-1.2) L 09/14/18 09:07 Estimated GFR > 60 ml/min 09/14/18 09:07 10 % 09/14/18 09:07 Glucose 149 mg/dL (65-100) H 09/14/18 09:07 POC Glucose 173 (70-105) H 09/13/18 05:55 Lactic Acid 1.10 mmol/L (0.7-2.0) 09/09/18 01:17 Calcium 8.4 mg/dL (8.4-10.2) 09/14/18 09:07 Magnesium 2.20 mg/dL (1.7-2.3) 09/08/18 22:08 0.50 mg/dL (0.1-1.2) 09/12/18 05:46 AST 14 units/L (5-40) 09/12/18 05:46 ALT 19 units/L (7-56) 09/12/18 05:46 104 units/L (35-129) 09/12/18 05:46 21 units/L (30-135) L 09/08/18 22:08 < 0.010 ng/mL (0.00-0.029) 09/08/18 22:08 5.1 g/dL (6.3-8.2) L 09/12/18 05:46 2.0 g/dL (3.9-5) L 09/12/18 05:46 0.6 % 09/12/18 05:46 TSH 1.320 mlU/mL (0.270-4.200) 09/12/18 21:11 Vandana (Yellow) 09/08/18 23:01 Turbid (Clear) 09/08/18 23:01 6.0 (5.0-7.0) 09/08/18 23:01 Ur Specific [place] 1.020 (1.003-1.030) 09/08/18 23:01 100 mg/dl mg/dL (Negative) 09/08/18 23:01 Neg mg/dL (Negative) 09/08/18 23:01 Tr mg/dL (Negative) 09/08/18 23:01 Lg (Negative) 09/08/18 23:01 Neg (Negative) 09/08/18 23:01 Neg (Negative) 09/08/18 23:01 < 2.0 mg/dL (<2.0) 09/08/18 23:01 Ur Leukocyte Esterase Mod (Negative) 09/08/18 23:01 > 182.0 /HPF (0.0-6.0) H 09/08/18 23:01 > 182.0 /HPF (0.0-6.0) 09/08/18 23:01 U Epithel Cells (Auto) 60.0 /HPF (0-13.0) H 09/08/18 23:01 3+ /HPF 09/08/18 23:01 Ur Renal Epithelial Cell 8 /LPF 09/08/18 23:01 Blood Type O POSITIVE 09/09/18 01:17 Antibody Screen Negative 09/09/18 01:17 Active Medications - Current Medications Current Medications: Generic Name Dose Route Start Last Admin Trade Name Freq PRN Reason Stop Dose Admin Acetaminophen 650 mg 09/09/18 00:43 Tylenol [place] Q4H PRN Pain MILD(1-3)/Fever >100.5/GARRETT Diltiazem HCl 30 mg 09/13/18 14:00 09/14/18 13:11 Cardizem PO 30 mg Q8HR RADHA Administration Heparin Sodium (Porcine) 5,000 unit 09/09/18 22:00 09/14/18 09:15 Heparin SUB-Q 5,000 unit Q12HR RADHA Administration Piperacillin Sod/Tazobactam Sod 2.25 gm in 50 mls @ 100 mls/hr 09/09/18 12:00 09/14/18 12:24 Zosyn/Ns 2.25 Gm/50ml IV 100 mls/hr Q6HR RADHA Administration Losartan Potassium 100 mg 09/13/18 10:00 09/14/18 09:16 Cozaar PO 100 mg QDAY RADHA Administration Metoprolol Tartrate 5 mg 09/12/18 16:31 09/12/18 23:14 Lopressor IV 5 mg Q6HR PRN Administration Tachyarrhythmias HR>130 Morphine Sulfate 2 mg 09/09/18 04:07 09/10/18 23:06 Morphine IV 2 mg Q4H PRN Administration Pain , Severe (7-10) Ondansetron HCl 4 mg 09/09/18 00:43 Zofran IV Q4H PRN Nausea And Vomiting Pantoprazole Sodium 40 mg 09/09/18 10:00 09/14/18 09:16 Protonix IV 40 mg BID RADHA Administration Sodium Chloride 10 ml 09/09/18 10:00 09/14/18 09:17 Sodium Chloride Flush Syringe 10 Ml IV 10 ml BID RADHA Administration Sodium Chloride 10 ml 09/09/18 00:43 Sodium Chloride Flush Syringe 10 Ml IV PRN PRN LINE FLUSH Nutrition/Malnutrition Assess - Dietary Evaluation Nutrition/Malnutrition Findings: Nutrition Notes Start: 09/14/18 13:14 Freq: Status: Active Protocol: Document 09/14/18 13:14 COURTNEY (Rec: 09/14/18 13:21 [facility]- [id number]) Nutrition Notes Need for Assessment generated from: MD Order Initial or Follow up Assessment Current Diagnosis Sepsis,Hypertension Other Pertinent Diagnosis Perforated gastric ulcer s/p exp lap, UTI, chronic back pain Current Diet [place] Labs/Tests Reviewed Pertinent Medications Reviewed Height 5 ft 6 in Weight 67 kg [place] Body Weight (kg) 59.09 BMI 23.8 Weight Status Appropriate Subjective/Other Information RD consulted for malnutrition. Pt is Day 5 post-op. Observed Ensure Clear on bedside table. Family reports that pt not really drinking much; pt encouraged to drink ONS though. Pt says she is " ready to go home". Pt tolerating PO intake. Burn Absent Trauma Absent #1 Nutrition Diagnosis Inadequate oral intake Etiology advanced age, s/p surgery, decreased appetite As Evidenced by Signs and Symptoms pt with decreased PO intake at this time Is patient on ventilator? No Is Patient Ambulatory and/or Out of Bed No REE-([facility]-confined to bed) 1341.840 Calculation Used for Recommendations [facility] Additional Notes Pro needs 1-1.2g/k-80g/ day Fluid needs 1ml/kcal Nutrition Intervention Change Diet Order: Continue current diet; advance as tolerated Add Supplement/Snack (indicate name/kcal Ensure Clear BID /protein ) Provides kCal: 480 Provides Protein (gm) 16 Goal #1 PO intake of meals plus ONS to meet at least 75% energy and pro needs Anticipated Discharge Needs: Continue ONS 1-2 times daily if PO intake remain suboptimal Follow-Up By: 09/17/18 Additional Comments F/U: intakes, diet advancement
[2018-09-15] MEDS: CARDIZEM PO SCH ×2 (05:09→14:50)
[2018-09-15] MEDS: ZOSYN/NS 2.25 GM/50ML 2.25 GM/50 ML BAG IV SCH ×2 (05:09→11:44)
[2018-09-15] MEDS: SODIUM CHLORIDE FLUSH SYRINGE 10 ML IV SCH ×2 (05:10→09:18)
[2018-09-15 08:10] LABS: Hematocrit 29.8 % (30.3-42.9); Hemoglobin 9.9 gm/dl (10.1-14.3); Mean Corpuscular HGB Conc 33 % (30-34); Mean Corpuscular Volume 88 fl (79-97); Platelet Count 251 K/mm3 (140-440)
[2018-09-15] MEDS: COZAAR PO SCH (09:16)
[2018-09-15] MEDS: HEPARIN SUB-Q SCH (09:17)
[2018-09-15] MEDS: PROTONIX IV SCH (09:17)
[2018-09-15 09:30] LABS: BUN/Creatinine Ratio 8; Blood Urea Nitrogen 5 mg/dL (7-17); Calcium 8.1 mg/dL (8.4-10.2); Hemolysis Index 16
--- NOTE | 2018-09-15 10:38 | Progress Note ---
<CARRI KEITA - Last Filed: 09/15/18 10:35> Assessment and Plan Sepsis Perforated gastric ulcer post exploratory laparotomy with gram patch Chronic pain UTI Hypertension Multi-focal atrial tachycardia Normal LVEF 55-60% by echo 02/2018. Recommendations: Continue Cardizem for suppression of MAT. Otherwise, conservative cardiac management. On discharge, prescribe long acting Cardizem CD 120mg daily. Patient will f/u with her primary infection preventionist, Dr James, as previously scheduled. Subjective Date of service: 09/15/18 Principal diagnosis: Sepsis; Peritonitis; Acute metabolic encephaloapthy; Obesity Interval history: No cardiac complaints. Objective Vital Signs Temp Pulse Resp BP BP Pulse Ox 09/15/18 09:16 75 171/60 09/15/18 07:03 98.1 F 75 16 171/60 96 09/15/18 05:23 97.1 F L 66 18 165/73 18 L 09/15/18 00:07 98.5 F 70 17 135/54 95 09/14/18 22:00 98 09/14/18 19:30 98.5 F 132 H 17 149/69 96 09/14/18 15:49 97.9 F 118 H 24 139/54 98 09/14/18 13:11 113 H 132/54 09/14/18 11:05 97.9 F 113 H 20 132/54 96 - Physical Examination General: No Apparent Distress HEENT: Positive: PERRL Neck: Positive: trachea midline Cardiac: Positive: Regular Rhythm Lungs: Positive: Decreased Breath Sounds Neuro: Positive: Grossly Intact, Weakness - Labs and Meds CBC 09/15/18 Range/Units 07:47 WBC 11.1 H (4.5-11.0) K/mm3 RBC 3.40 L (3.65-5.03) M/mm3 Hgb 9.9 L (10.1-14.3) gm/dl Hct 29.8 L (30.3-42.9) % Plt Count 251 (140-440) K/mm3 Comprehensive Metabolic Panel 09/15/18 Range/Units 07:47 Sodium 141 (137-145) mmol/L Potassium 3.2 L (3.6-5.0) mmol/L Chloride 110.9 H (98-107) mmol/L Carbon Dioxide 18 L (22-30) mmol/L BUN 5 L (7-17) mg/dL Creatinine 0.6 L (0.7-1.2) mg/dL Glucose 117 H (65-100) mg/dL Calcium 8.1 L (8.4-10.2) mg/dL - Allied health notes Allied health notes reviewed: nursing <ROBB GIBSON - Last Filed: 09/15/18 11:38> Assessment and Plan I've seen and evaluated the patient and agreed with the assessment and plan. Recommend continue Cardizem for rate control for suppression of multifocal atrial tachycardia. No anticoagulation is needed. Objective Vital Signs Temp Pulse Resp BP BP Pulse Ox 09/15/18 09:16 75 171/60 09/15/18 07:03 98.1 F 75 16 171/60 96 09/15/18 05:23 97.1 F L 66 18 165/73 18 L 09/15/18 00:07 98.5 F 70 17 135/54 95 09/14/18 22:00 98 09/14/18 19:30 98.5 F 132 H 17 149/69 96 09/14/18 15:49 97.9 F 118 H 24 139/54 98 09/14/18 13:11 113 H 132/54 - Labs and Meds CBC 09/15/18 Range/Units 07:47 WBC 11.1 H (4.5-11.0) K/mm3 RBC 3.40 L (3.65-5.03) M/mm3 Hgb 9.9 L (10.1-14.3) gm/dl Hct 29.8 L (30.3-42.9) % Plt Count 251 (140-440) K/mm3 Comprehensive Metabolic Panel 09/15/18 Range/Units 07:47 Sodium 141 (137-145) mmol/L Potassium 3.2 L (3.6-5.0) mmol/L Chloride 110.9 H (98-107) mmol/L Carbon Dioxide 18 L (22-30) mmol/L BUN 5 L (7-17) mg/dL Creatinine 0.6 L (0.7-1.2) mg/dL Glucose 117 H (65-100) mg/dL Calcium 8.1 L (8.4-10.2) mg/dL
[2018-09-15 13:16] VITALS: BP 130/64
[2018-09-15] MEDS ORDERED: POTASSIUM CHLORIDE PO NR (14:00)
--- NOTE | 2018-09-15 14:21 | Progress Note ---
Assessment and Plan 88 yo f s/p exploratory laparotomy, toni patch, peritoneal lavage, POD 6 1. sepsis 2. perforated gastric ulcer 3. chronic pain, on NSAIDs 4. UTI UGI series - negative for leak Plan: 1. continue full liquids with protein supplements - to be continued on dc 2. prn PO pain control 3. DVT ppx 4. replace K 5. IS/pulm toilet 6. BETTY drain removed 7. PPI PO daily 8. follow up in surgery in clinic in 1 week Stable for dc from surgery standpoint. Does not need additional abx from my standpoint. Discussed discharge instructions with daughter. Also written discharge instructions printed and left on chart. D/W Dr. Murphy. Thank you, please call with questions. Subjective Date of service: 09/15/18 Narrative: Pt seen and examined. No acute complaints. Tolerating full liquids with poor appetite. Has gotten up with PT. Objective Vital Signs - 12hr 09/15/18 09/15/18 09/15/18 05:23 07:03 09:16 Temperature 97.1 F L 98.1 F Pulse Rate 66 75 75 Respiratory 18 16 Rate Blood Pressure 171/60 171/60 Blood Pressure 165/73 [Left] O2 Sat by Pulse 18 L 96 Oximetry 09/15/18 11:57 Temperature 98.2 F Pulse Rate 86 Respiratory 20 Rate Blood Pressure 130/64 Blood Pressure [Left] O2 Sat by Pulse 95 Oximetry - General physical appearance Narrative Exam: Gen: Awake and alert. NAD CV; S1, S2+ Resp; even and unlabored Abd: soft, NT, ND. incision c/d/i with dameon in place. BETTY drain serous. Betty drain suture cut and taken off bulb suction. Drain removed intact. Coversite dressing applied. - Labs 09/15/18 07:47 09/15/18 07:47 Diabetes panel 09/15/18 Range/Units 07:47 Sodium 141 (137-145) mmol/L Potassium 3.2 L (3.6-5.0) mmol/L Chloride 110.9 H (98-107) mmol/L Carbon Dioxide 18 L (22-30) mmol/L BUN 5 L (7-17) mg/dL Creatinine 0.6 L (0.7-1.2) mg/dL Glucose 117 H (65-100) mg/dL Calcium 8.1 L (8.4-10.2) mg/dL Calcium panel 09/15/18 Range/Units 07:47 Calcium 8.1 L (8.4-10.2) mg/dL Pituitary panel 09/15/18 Range/Units 07:47 Sodium 141 (137-145) mmol/L Potassium 3.2 L (3.6-5.0) mmol/L Chloride 110.9 H (98-107) mmol/L Carbon Dioxide 18 L (22-30) mmol/L BUN 5 L (7-17) mg/dL Creatinine 0.6 L (0.7-1.2) mg/dL Glucose 117 H (65-100) mg/dL Calcium 8.1 L (8.4-10.2) mg/dL Adrenal panel 09/15/18 Range/Units 07:47 Sodium 141 (137-145) mmol/L Potassium 3.2 L (3.6-5.0) mmol/L Chloride 110.9 H (98-107) mmol/L Carbon Dioxide 18 L (22-30) mmol/L BUN 5 L (7-17) mg/dL Creatinine 0.6 L (0.7-1.2) mg/dL Glucose 117 H (65-100) mg/dL Calcium 8.1 L (8.4-10.2) mg/dL
--- NOTE | 2018-09-15 14:37 | Discharge Summary ---
Providers - Providers Date of Admission: 09/09/18 00:43 Date of discharge: 09/15/18 Attending physician: ROBB LEHMAN 09/08/18 23:55 Consult to Physician [CONS] Urgent Comment: Dr. Pulliam spoke with Dr. Rangel @ 0005 Consulting Provider: BULL RANGEL Physician Instructions: Reason For Exam: perf bowel 09/09/18 00:43 Consult to Physician [CONS] Routine Comment: Consulting Provider: LICHA LAURENT Physician Instructions: Reason For Exam: cc 09/09/18 04:08 Physical Therapy Evaluation and Treat [CONS] Routine Comment: Reason For Exam: POST OP 09/10/18 22:43 Occupational Therapy Evaluate and Treat [CONS] Routine Comment: Reason For Exam: Debility 09/12/18 09:00 Consult to PICC Line RN [CONS] Routine Reason For Exam: PICC LINE FOR TPN Type Line:: PICC 09/12/18 16:53 Consult to Physician [CONS] Routine Comment: Consulting Provider: RUPA HERMOSILLO Physician Instructions: Reason For Exam: tachy arrythmia ? Atrial fibrillation 09/13/18 12:21 Consult to Dietitian/Nutrition [CONS] Routine Physician Instructions: Reason For Exam: Reason for Consult: malnutrition, post op 09/15/18 08:04 Consult to Physician [CONS] Routine Comment: Consulting Provider: DIAMOND KAUR Physician Instructions: Reason For Exam: Sepsis,perforated duodenum Primary care physician: Marisela THAYER MD Hospitalization Condition: Fair Disposition: DC/TX-06 HOME UNDER HOME HLTH - Discharge Diagnoses (1) ALPESH (acute kidney injury) Status: Acute Exam - Constitutional Vitals: Temp Pulse Resp BP Pulse Ox 98.2 F 86 20 130/64 95 09/15/18 11:57 09/15/18 11:57 09/15/18 11:57 09/15/18 11:57 09/15/18 11:57 Plan Activity: advance as tolerated Diet: other (Full liquid diet with protein supplements) Special Instructions: physical therapy, home health RN Additional Instructions: 1.Follow up with PCP in 1 week. 2.Follow up with Dr. Rangel, Surgeon in 1 week. 3.Follow up with Dr. James, cardiology in 1 week Follow up with: BULL RANGEL DO [Staff Physician] - 7 Days [facility] LIAM KINGSTON MD [Referring] - 3-5 Days Prescriptions: dilTIAZem CD [Cardizem Cd] 120 mg PO DAILY #30 cap Pantoprazole [Protonix TAB] 40 mg PO QDAY #30 tablet
--- NOTE | 2018-09-15 15:35 | Consultation ---
History of Present Illness - Reason for Consult Consult date: 09/15/18 Perforated duodenum - History of Present Illness 88 yo F PMHx HTN, HLD admitted with abdominal pain which began acutely prior to presenting to the ER. The pain was sharp and severe, as well as diffuse across the abdomen. She had never had pain like that before, and nothing alleviated or aggravated the pain, which prompted her to present to hospital. On admission an abdominal CT showed a perforated viscus and she was taken to the OR with Dr. Love for repair on 09/09. Since then she has recovered well. Today, she feels well but is mildly confused. She very much would like to go home. Afebrile since admission with an initially high leukocytosis which peaked at 30 post-op and has since returned to normal. She is currently receiving piperacillin-tazo. Cultures have all been negative thus far. Past History Past Medical History: hypertension, hyperlipidemia, other (chronic lower back pain) Past Surgical History: hysterectomy Social history: no significant social history Family history: CAD Medications and Allergies Allergies Allergy/AdvReac Type Severity Reaction Status Date / Time No Known Allergies Allergy Verified 09/08/18 14:36 Home Medications Medication Instructions Recorded Confirmed Last Taken Type Adult One Daily Multivit Tab 1 tab PO QDAY 08/28/18 09/09/18 Unknown History Gabapentin [Neurontin] 200 mg PO BID 08/28/18 09/09/18 Unknown History Losartan 100 mg PO QDAY 08/28/18 09/09/18 Unknown History Meloxicam 15 mg PO QAM 08/28/18 09/09/18 Unknown History Vitamin D (Nf) 1 tab PO QDAY 08/28/18 09/09/18 Unknown History Calc Carb/Vit D 500 mg-200 Uni 2 each PO BID #60 tablet 08/30/18 09/09/18 Unknown Rx [Oysco D 500 mg-200 Unit] HYDROcodone/APAP 5-325 5 mg PO Q8HR PRN #14 08/30/18 09/09/18 Unknown Rx ALPRAZolam [Xanax TAB] 0.25 mg PO BID PRN 09/09/18 09/09/18 Unknown History Pantoprazole [Protonix TAB] 40 mg PO QDAY #30 tablet 09/15/18 Unknown Rx dilTIAZem CD [Cardizem Cd] 120 mg PO DAILY #30 cap 09/15/18 Unknown Rx Active Meds: Active Medications Acetaminophen (Tylenol) 650 mg IN Q4H PRN PRN Reason: Pain MILD(1-3)/Fever >100.5/GARRETT Diltiazem HCl (Cardizem) 30 mg PO Q8HR [facility] Last Admin: 09/15/18 14:50 Dose: 30 mg Documented by: Heparin Sodium (Porcine) (Heparin) 5,000 unit SUB-Q Q12HR [facility] Last Admin: 09/15/18 09:17 Dose: 5,000 unit Documented by: Piperacillin Sod/Tazobactam Sod (Zosyn/Ns 2.25 Gm/50ml) 2.25 gm in 50 mls @ 100 mls/hr IV Q6HR [facility] Last Admin: 09/15/18 11:44 Dose: 100 mls/hr Documented by: Losartan Potassium (Cozaar) 100 mg PO QDAY [facility] Last Admin: 09/15/18 09:16 Dose: 100 mg Documented by: Metoprolol Tartrate (Lopressor) 5 mg IV Q6HR PRN PRN Reason: Tachyarrhythmias HR>130 Last Admin: 09/12/18 23:14 Dose: 5 mg Documented by: Morphine Sulfate (Morphine) 2 mg IV Q4H PRN PRN Reason: Pain , Severe (7-10) Last Admin: 09/10/18 23:06 Dose: 2 mg Documented by: Ondansetron HCl (Zofran) 4 mg IV Q4H PRN PRN Reason: Nausea And Vomiting Pantoprazole Sodium (Protonix) 40 mg PO QDAY [facility] Potassium Chloride (Potassium Chloride) 40 meq PO ONCE NR Stop: 09/15/18 16:00 Last Admin: 09/15/18 14:50 Dose: 40 meq Documented by: Sodium Chloride (Sodium Chloride Flush Syringe 10 Ml) 10 ml IV BID [facility] Last Admin: 09/15/18 09:18 Dose: 10 ml Documented by: Sodium Chloride (Sodium Chloride Flush Syringe 10 Ml) 10 ml IV PRN PRN PRN Reason: LINE FLUSH Review of Systems Constitutional: no weight loss, no weight gain, no fever, no chills, no sweats Ears, nose, mouth and throat: no nasal congestion, no dysphagia, no sore throat Cardiovascular: no chest pain, no palpitations, no syncope, no leg edema Respiratory: no cough, no shortness of breath, no wheezing Gastrointestinal: abdominal pain, nausea, no diarrhea Musculoskeletal: low back pain, no arm numbness/tingling, no shooting leg pain, no leg numbness/tingling Integumentary: no rash, no pruritis, no redness Neurological: no weakness, no parathesias, no numbness Psychiatric: no anxiety, no change in sleep habits, no depression Endocrine: no cold intolerance, no heat intolerance, no polyphagia Hematologic/Lymphatic: no easy bruising, no easy bleeding, no lymphadenopathy Allergic/Immunologic: no urticaria, no allergic rhinitis Physical Examination - Physical Exam Narrative exam: Constitutional: awake, no distress, following commands Head, Ears, Nose: Normocephalic, atraumatic. External ears, nose normal Eyes: Conjunctivae/corneas clear. No icterus. No ptosis. Neck: Supple, no meningeal signs Oral: fair dentition, moist mucous membranes Cardiovascular: S1, S2 normal. Normal rhythm Respiratory: Good air entry, clear to auscultation bilaterally GI: Soft, non-tender; bowel sounds normal. No peritoneal signs. Midline abd ominal surgical wound, well-healing, no redness or drainage Musculoskeletal: No pedal edema, Skin: No rash or abscess Hem/Lymphatic: No palpable cervical or supraclavicular nodes. No lymphangitis Psych: no agitation Neurological: Moves all extremities, no focal defects - Constitutional Vitals: Vital Signs Temp Pulse Resp BP Pulse Ox 98.2 F 86 20 130/64 95 09/15/18 11:57 09/15/18 11:57 09/15/18 11:57 09/15/18 11:57 09/15/18 11:57 Temperature -Last 24 Hours Temperature 98.2 F Temperature 98.1 F Temperature 97.1 F Temperature 98.5 F Temperature 98.5 F Temperature 97.9 F Results - Labs CBC & Chem 7: 09/15/18 07:47 09/15/18 07:47 Labs: Abnormal lab results 09/15/18 09/15/18 Range/Units 07:47 07:47 WBC 11.1 H (4.5-11.0) K/mm3 RBC 3.40 L (3.65-5.03) M/mm3 Hgb 9.9 L (10.1-14.3) gm/dl Hct 29.8 L (30.3-42.9) % Potassium 3.2 L (3.6-5.0) mmol/L Chloride 110.9 H (98-107) mmol/L Carbon Dioxide 18 L (22-30) mmol/L BUN 5 L (7-17) mg/dL Creatinine 0.6 L (0.7-1.2) mg/dL Glucose 117 H (65-100) mg/dL Calcium 8.1 L (8.4-10.2) mg/dL - Imaging and Cardiology Chest x-ray: image reviewed (Normal) CT scan - abdomen: image reviewed (Viscus perforation/pneumoperitoneum) Assessment and Plan Cultures: 09/08 BCx negative 09/08 UCx negative 88 yo F PMHx HTN, HLD admitted with abdominal perforation 1) Sepsis secondary to abdominal perforation - resolved after source control operation and post-operative antibiotics. Now post-operative antibiotic day 6 and well healing, I feel it is ok to stop her antibiotics at this time and she is ok to be discharged home without antibiotics. 2) abdominal perforation - operative date: 09/09. Source control achieved here. Counselled regarding symptoms of post-op wound infection, instructed to call our office should the wound become red, hot, or drainage of thick purulent fluid. That said, the wound looks excellent at the present time and I have no concerns. 3) HTN 4) HLD Recs: Ok to stop pip-jensen Monitor daily CBC while inpatient Thank you for the consult. MD Lucy P[facility] C: [phone] O: [phone] F: [phone]
[2018-09-16] MEDS ORDERED: PROTONIX PO SCH (10:00)
== END 2018-09-15 16:00 | disposition home health service (06) | DRG 853 ==
LOC: ED 21:35 → CC1 09-09 00:43 → 3B-SURG 09-13 11:48
PROVIDERS: ADMIT Internal Medicine; ATTEND Internal Medicine
PROC: 0DU907Z Supplement Duodenum with Autologous Tissue Substitute, Open Approach (ICD-10-PCS; principal; 2018-09-09)
PROC: 3E1M38Z Irrigation of Peritoneal Cavity using Irrigating Substance, Percutaneous Approach (ICD-10-PCS; 2018-09-09)
PROC: 05HY33Z Insertion of Infusion Device into Upper Vein, Percutaneous Approach (ICD-10-PCS; 2018-09-12)
DX: A41.9 Sepsis, unspecified organism (principal); G92 Toxic encephalopathy; N17.0 Acute kidney failure with tubular necrosis; K66.1 Hemoperitoneum; K26.5 Chronic or unspecified duodenal ulcer with perforation; J95.821 Acute postprocedural respiratory failure; K65.9 Peritonitis, unspecified; N39.0 Urinary tract infection, site not specified; I47.1 Supraventricular tachycardia; Z96.653 Presence of artificial knee joint, bilateral; K21.9 Gastro-esophageal reflux disease without esophagitis; F03.90 Unspecified dementia, unspecified severity, without behavioral disturbance, psychotic disturbance, mood disturbance, and anxiety; F41.1 Generalized anxiety disorder; E66.9 Obesity, unspecified; M54.5 Low back pain; M81.0 Age-related osteoporosis without current pathological fracture; M54.30 Sciatica, unspecified side; G89.29 Other chronic pain; Z82.49 Family history of ischemic heart disease and other diseases of the circulatory system; Z90.710 Acquired absence of both cervix and uterus; Z79.01 Long term (current) use of anticoagulants; I25.2 Old myocardial infarction; Y83.8 Other surgical procedures as the cause of abnormal reaction of the patient, or of later complication, without mention of misadventure at the time of the procedure; Y92.238 Other place in hospital as the place of occurrence of the external cause
CPT/HCPCS: 36415; 71045; 74022; 74176; 74247; 80048; 80053; 81001; 82140; 82550; 82962; 83735; 84443; 84484; 85007; 85025; 85027; 85610; 85730; 86850; 86900; 86901; 87040; 87086; 87116; 93005; 93010; 94760; 96365; 96367; 96375; 96376; G0378; C9113; J1100; J1644; J2270; J2370; J2405; J2543; J7030; J7040; J7042; Q9963

== ENCOUNTER 2018-10-08 12:12 | Outpatient (CLI) | payer MEDICARE ==
--- NOTE | 2018-10-08 13:35 | Vascular Lab Report ---
DUPLEX DOPPLER LOWER EXTREMITY VEINS, BILATERAL INDICATION: Bilateral lower extremity pain and swelling. TECHNIQUE: Duplex doppler imaging was performed through the veins of both lower extremities using ve nous compression and other maneuvers. COMPARISON: No relevant prior imaging study available. FINDINGS: Right Common femoral vein: Negative. Right Superficial femoral vein: Negative. Right Popliteal vein: Negative. Right Calf veins: Negative. Left Common femoral vein: Negative. Left Superficial femoral vein: Negative. Left Popliteal vein: Negative. Left Calf veins: Negative. Additional findings: None.. IMPRESSION: No sonographic evidence for DVT in either lower extremity. Signer Name: Álvaro Quijano Jr, MD Signed: 10/08/2018 1:30 PM Workstation Name: [id number]
== END 2018-10-08 12:13 | disposition home or self-care (01) ==
LOC: VAS 12:12
PROVIDERS: ATTEND Internal Medicine
DX: R22.43 Localized swelling, mass and lump, lower limb, bilateral (principal)
CPT/HCPCS: 93970

== ENCOUNTER 2018-11-24 11:57 | Inpatient (IN) | payer MEDICARE ==
[2018-11-24] MEDS ORDERED: LIDOCAINE MPF (2%) 20 MG/1 ML VIAL 5 ML ONE (13:50)
[2018-11-24] MEDS ORDERED: fentaNYL 100 MCG/2 ML INJ ONE (13:57)
[2018-11-24] MEDS: SODIUM CHLORIDE 0.9% 1000 ML 1,000 ML IV SCH ×2 (13:57→18:27)
[2018-11-24] MEDS ORDERED: PROPOFOL 200 MG/20 ML VIAL IV ONE (14:02)
--- NOTE | 2018-11-24 14:15 | Anesthesia Consultation ---
Anesthesia Consult and Med Hx Date of service: 11/24/18 - Airway Anesthetic Teeth Evaluation: Good ROM Head & Neck: Adequate Mental/Hyoid Distance: Adequate Mallampati Class: Class II Intubation Access Assessment: Probably Good - Pulmonary Exam CTA: Yes - Cardiac Exam Cardiac Exam: RRR Anesthetic Concerns: Hx. of MVP and A-Fib - Pre-Operative Health Status ASA Pre-Surgery Classification: ASA3 Proposed Anesthetic Plan: MAC - Pulmonary Hx Smoking: No SOB: No Hx Sleep Apnea: No (MAHAD PRE SCREEN HIGH RISK) - Cardiovascular System Hx Hypertension: Yes Hx Coronary Artery Disease: No Hx Heart Attack/AMI: No Hx Angina: No Hx Percutaneous Transluminal Coronary Angioplasty (PTCA): No Hx Cardia Arrhythmia: Yes (A-FIB) Hx Pacemaker: No Hx Internal Defibrillator: No Hx Valvular Heart Disease: Yes (MVP) Hx Heart Murmur: No Hx Peripheral Vascular Disease: No - Central Nervous System Hx Back Pain: Yes Hx Psychiatric Problems: No - Gastrointestinal Hx Ulcer: No Hx Gastroesophageal Reflux Disease: Yes - Endocrine Hx Renal Disease: No Hx End Stage Renal Disease: No Hx Cirrhosis: No Hx Hyperthyroidism: No - Hematic Hx Anemia: No Hx Sickle Cell Disease: No - Other Systems Hx Cancer: No Hx Obesity: No - Additional Comments Anesthesia Medical History Comments: NO previous anesthesia complication
--- NOTE | 2018-11-24 14:17 | Anesthesia Day of Surgery ---
Anesthesia Day of Surgery - Day of Surgery Patient Examined: Yes Patient H&P Reviewed: Yes Patient is NPO: Yes
--- NOTE | 2018-11-24 14:27 | Short Stay Summary ---
Short Stay Documentation Date of service: 11/24/18 Narrative H&P: The patient is an 88 yo female with a hx of perf DU s/p surgery in the last 2 months. She has had worsening bloating and emesis in the last 2-3 weeks. There is no emesis. She is compliant with protonix every day, and is not using NSAIDs. An EGD 2 days ago could not be completed (food in stomach, and apparent duodenal stricture). Today's procedure is for dilation of the duodenal stricture, if present. - History Principal diagnosis: Duodenal Stenosis H&P: obtained from office (See Narrative H/P) Past Medical History: hypertension, other (Sciatica) Past Surgical History: Other (Duodenal Perforation (Ulcer) 09/2018, Kyphoplasty) Social history: lives with family, no smoking, no alcohol abuse - Allergies and Medications Current Medications: Allergies iodine Allergy (Mild, Verified 11/24/18 13:24) Unknown Home Medications Medication Instructions Recorded Confirmed Last Taken Type Adult One Daily Multivit Tab 1 tab PO QDAY 08/28/18 11/24/18 Unknown History Gabapentin [Neurontin] 200 mg PO BID 08/28/18 11/24/18 11/23/18 History Losartan 100 mg PO QDAY 08/28/18 11/24/18 11/24/18 History Meloxicam 15 mg PO QAM 08/28/18 11/24/18 Unknown History Vitamin D (Nf) 1 tab PO QDAY 08/28/18 11/24/18 Unknown History Calc Carb/Vit D 500 mg-200 Uni 2 each PO BID #60 tablet 08/30/18 11/24/18 Unknown Rx [Oysco D 500 mg-200 Unit] HYDROcodone/APAP 5-325 5 mg PO Q8HR PRN #14 08/30/18 11/24/18 11/23/18 Rx ALPRAZolam [Xanax TAB] 0.25 mg PO BID PRN 09/09/18 11/24/18 Unknown History Pantoprazole [Protonix TAB] 40 mg PO QDAY #30 tablet 09/15/18 11/24/18 11/23/18 Rx dilTIAZem CD [Cardizem Cd] 180 mg PO DAILY 11/24/18 11/24/18 History Active Medications Sodium Chloride (Nacl 0.9% 1000 Ml) 1,000 mls @ 50 mls/hr IV DIRECT [facility] Last Admin: 11/24/18 13:57 Dose: 50 mls/hr Documented by: I HAVE REVIEWED AND RECONCILED MEDICATIONS - Physical exam General appearance: no acute distress Integumentary: no rash HEENT: PERRLA, EOMI Lungs: Clear to auscultation, Normal air movement Breasts: normal Heart: Regular rate, Normal S1, Normal S2 Gastrointestinal: normal, normoactive bowel sounds - Brief post op/procedure progress note Date of procedure: 11/24/18 Pre-op diagnosis: Duodenal Stenosis Post-op diagnosis: same (Food in stomach) Procedure: EGD with duodenal dilation Anesthesia: MAC Findings: 1. Exposed stitch in duodenum 2. Duodenal lumen nearly occluded by stenosis - Pyloric balloon dilation to 10mm over guidewire - Post-endoscopic appearance OK but still unable to pass endoscope 3. Food in stomach and duodenum c/w GOO Surgeon: MARCIAL LIN Estimated blood loss: minimal Pathology: none Specimen disposition: other (N/A) Condition: stable - Hospital course Hospital course: Admit to Inpatient. Short Stay Discharge Plan Follow up with: Stephanie THAYER MD [Primary Care Provider] - 7 Days
--- NOTE | 2018-11-24 16:28 | History and Physical Report ---
History of Present Illness Date of examination: 11/24/18 Date of admission: 11/24/18 15:18 Past History Past Medical History: hypertension, other (Sciatica) Past Surgical History: Other (Duodenal Perforation (Ulcer) 09/2018, Kyphoplasty) Social history: lives with family. denies: smoking, alcohol abuse Medications and Allergies Allergies Allergy/AdvReac Type Severity Reaction Status Date / Time iodine Allergy Mild Unknown Verified 11/24/18 13:24 Home Medications Medication Instructions Recorded Confirmed Last Taken Type Adult One Daily Multivit Tab 1 tab PO QDAY 08/28/18 11/24/18 Unknown History Gabapentin [Neurontin] 200 mg PO BID 08/28/18 11/24/18 11/23/18 History Losartan 100 mg PO QDAY 08/28/18 11/24/18 11/24/18 History Meloxicam 15 mg PO QAM 08/28/18 11/24/18 Unknown History Vitamin D (Nf) 1 tab PO QDAY 08/28/18 11/24/18 Unknown History Calc Carb/Vit D 500 mg-200 Uni 2 each PO BID #60 tablet 08/30/18 11/24/18 Unknow n Rx [Oysco D 500 mg-200 Unit] HYDROcodone/APAP 5-325 5 mg PO Q8HR PRN #14 08/30/18 11/24/18 11/23/18 Rx ALPRAZolam [Xanax TAB] 0.25 mg PO BID PRN 09/09/18 11/24/18 Unknown History Pantoprazole [Protonix TAB] 40 mg PO QDAY #30 tablet 09/15/18 11/24/18 11/23/18 Rx dilTIAZem CD [Cardizem Cd] 180 mg PO DAILY 11/24/18 11/24/18 History Active Meds: Active Medications Sodium Chloride (Nacl 0.9% 1000 Ml) 1,000 mls @ 50 mls/hr IV DIRECT [facility] Last Admin: 11/24/18 13:57 Dose: 50 mls/hr Documented by: Exam - Constitutional Vitals: Temp Pulse Resp BP Pulse Ox 98.2 F 83 24 126/96 100 11/24/18 14:49 11/24/18 15:30 11/24/18 15:30 11/24/18 15:30 11/24/18 15:30
[2018-11-24] MEDS ORDERED: ONDANSETRON 4 MG/2 ML INJ IV PRN (16:29)
[2018-11-24] MEDS ORDERED: HYDROmorphone 1 MG/1 ML INJ IV PRN (16:29)
[2018-11-24 18:37] LABS: Alanine Aminotransferase 8 units/L (7-56); Albumin 3.4 g/dL (3.9-5); BUN/Creatinine Ratio 14; Blood Urea Nitrogen 10 mg/dL (7-17); Calcium 9.4 mg/dL (8.4-10.2); Hemolysis Index 8
[2018-11-24 18:51] LABS: Basophils % (Auto) 0.4 % (0.0-1.8); Eosinophils % (Auto) 0.3 % (0.0-4.3); Hematocrit 37.3 % (30.3-42.9); Hemoglobin 12.3 gm/dl (10.1-14.3); Lymphocytes # (Auto) 1.7 K/mm3 (1.2-5.4); Lymphocytes % (Auto) 24.5 % (13.4-35.0); Mean Corpuscular HGB Conc 33 % (30-34); Mean Corpuscular Volume 85 fl (79-97); Monocytes # (Auto) 0.4 K/mm3 (0.0-0.8); Monocytes % (Auto) 6.3 % (0.0-7.3); Platelet Count 198 K/mm3 (140-440); Red Blood Count 4.41 M/mm3 (3.65-5.03); Red Cell Distribution Width 15.5 % (13.2-15.2)
--- NOTE | 2018-11-24 19:23 | Operative Report ---
PROCEDURE PERFORMED: Esophagogastroduodenoscopy with balloon dilation of a duodenal stricture. PREOPERATIVE DIAGNOSIS: Duodenal stricture. POSTOPERATIVE DIAGNOSES: Duodenal stricture. ENDOSCOPIST: Dr. Parth Price. INSTRUMENT: Olympus video endoscope. MEDICATIONS: MAC anesthesia by [facility]esthesia [facility]. COMPLICATIONS: No apparent complications. ESTIMATED BLOOD LOSS: Minimal. SPECIMENS: None. IMPLANTS: None. ASSISTANTS: None. CONDITION AT COMPLETION: Stable, but the patient will be admitted to the inpatient service. TECHNIQUE: The patient and her family were informed of the risks and benefits of the procedure. The daughter signed the informed consent to proceed. After the patient was placed in the left lateral decubitus position, the above sedative medications were given. Her vital signs remained stable throughout the procedure. The endoscope was advanced from the mouth to the duodenal bulb under direct visualization. At that point, the bowel was insufflated. There was a large amount of food residue in the stomach and the duodenal bulb and exposed stitch could be seen and the duodenal lumen was nearly occluded by a stenosis: A pyloric balloon was dilated to 10 mm over a guidewire at the level of the duodenal stricture, the junction of the first and second portion of the duodenum. There was a good post-endoscopic appearance, but the endoscope was still unable to pass and the endoscope was slowly withdrawn from the patient. FINDINGS: 1. Exposed stitch in the duodenum consistent with recent oversew operation. 2. The duodenal lumen at the junction of the first and second portion was nearly occluded by severe stenosis, postoperative from an ulcer. A. Pyloric balloon dilation to 10 mm over a guidewire was performed. B. Post-endoscopic appearance was stable without evidence of complication with the endoscope, approximately 11 mm, was still unable to pass through the stenosis. 3. Copious food in stomach in the stomach and duodenum, despite a clear liquid diet for 48 hours, consistent with partial gastric outlet obstruction. RECOMMENDATIONS: 1. The patient will be admitted to the inpatient service for intravenous nutrition. 2. Repeat upper endoscopy with possible dilation to approximately 12-15 mm in 48 hours. 3. Surgical consult for possible bypass surgery and/or duodenoplasty if repeat dilation is unsuccessful, JOB# [id number] E/NTS
[2018-11-24] MEDS ORDERED: FLU VACC QUAD 2019-20 (3 YR UP)/PF 60 MCG/0.5 ML SYRINGE IM ONE (20:05)
[2018-11-24] MEDS: PANTOPRAZOLE 40 MG INJ IV SCH (22:34)
[2018-11-24] MEDS: MELATONIN 5 MG TAB PO PRN (22:34)
[2018-11-25 05:30] LABS: Basophils % (Auto) 0.7 % (0.0-1.8); Eosinophils % (Auto) 0.6 % (0.0-4.3); Hematocrit 36.5 % (30.3-42.9); Lymphocytes # (Auto) 1.4 K/mm3 (1.2-5.4); Lymphocytes % (Auto) 24.2 % (13.4-35.0); Mean Corpuscular HGB Conc 33 % (30-34); Mean Corpuscular Volume 85 fl (79-97); Monocytes # (Auto) 0.3 K/mm3 (0.0-0.8); Monocytes % (Auto) 5.8 % (0.0-7.3); Platelet Count 190 K/mm3 (140-440); Red Blood Count 4.28 M/mm3 (3.65-5.03); Red Cell Distribution Width 15.2 % (13.2-15.2)
[2018-11-25 05:57] LABS: Alanine Aminotransferase 7 units/L (7-56); Albumin 3.4 g/dL (3.9-5); BUN/Creatinine Ratio 14; Blood Urea Nitrogen 10 mg/dL (7-17); Hemolysis Index 3
--- NOTE | 2018-11-25 06:08 | Event Note ---
Date: 11/24/18 See H/p in reports Duodenal obstruction NPO for now IV Fluids
--- NOTE | 2018-11-25 06:41 | History and Physical Report ---
CHIEF COMPLAINT: Vomiting for the last 2-3 weeks. HISTORY OF PRESENT ILLNESS: An 88-year-old female with recent perforated duodenal ulcer secondary to meloxicam, status post surgery 2 months ago, was having an upper endoscopy today. The patient has been having worsening bloating sensation and recurrent vomiting for the last 2-3 weeks. The patient was on Protonix and is not supposed to be taking any nonsteroidals. EGD done 2 days ago could not be completed because of food in the stomach and apparent duodenal stricture. The patient was taken to [facility] today as outpatient for dilatation of the duodenal stricture if present. There was lot of food material and duodenal lumen was nearly occluded with stenosis. Pyloric balloon dilatation to 10 mm, so a guidewire was attempted. Post-dilatation, unable to pass the endoscope. Food in stomach and duodenum consistent with gastric outlet obstruction. Hence, the patient is being admitted for IV fluids and possible PPN/TPN and taken back for dilatation in 2 days. PAST MEDICAL HISTORY: Peptic ulcer disease with perforation, hypertension, generalized anxiety disorder and gastroesophageal reflux disease. PAST SURGICAL HISTORY: Duodenal perforation with repair. SOCIAL HISTORY: Does not smoke. No alcohol, no recreational drugs. FAMILY HISTORY: Hypertension. CURRENT MEDICATIONS: On chart including diltiazem 180 mg once a day, losartan 100 mg once a day, gabapentin 200 mg twice a day, Xanax 0.25 b.i.d. REVIEW OF SYSTEMS: Significant for recurrent vomiting and abdominal bloating. Otherwise, review of systems negative. PHYSICAL EXAMINATION: GENERAL: Elderly female, cooperative during examination. Alert and oriented to some extent. Has dementia. VITAL SIGNS: Blood pressure is 128/71, temperature is 98.4, pulse is 83, respirations are 25. HEENT: Unremarkable. Pupils equal and reactive. NECK: Supple, no lymphadenopathy, no thyromegaly. LUNGS: Clear to auscultation and percussion. Good air entry. CARDIOVASCULAR SYSTEM: S1, S2 heard. No gallop, no murmur, no rub. Apical impulse in left fifth intercostal space and midclavicular line. ABDOMEN: Epigastric tenderness present. Otherwise, bowel sounds are present. Hernial orifices are normal. EXTREMITIES: Good pedal pulses. No pedal edema. CENTRAL NERVOUS SYSTEM: Alert and oriented x 1 to persons, not to time and place. LABORATORY DATA: Significant for normal CBC, normal electrolytes. Albumin is 3.4, slightly low. ASSESSMENT AND PLAN: 1. 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 The patient to be kept n.p.o., IV fluids. The patient to be taken to [facility]oscopy [facility] for dilatation in 48 hours. Surgery consult requested. Her duodenal perforation was repaired about 2 months ago, which was secondary to meloxicam. 2. Hypertension. Catapres patch initiated. No antihypertensives. 3. Peripheral neuropathy. Gabapentin on hold. Analgesics on a p.r.n. basis. 4. Generalized anxiety disorder. Ativan if necessary. 5. Peptic ulcer disease. Protonix IV 40 mg b.i.d. 6. Deep venous thrombosis prophylaxis. Lovenox 30 mg subcutaneous daily. Gastrointestinal consult by Dr. Price requested and Surgery consult by Dr. Love requested. JOB# [id number] GREGORY/AMBROSE [facility]
--- NOTE | 2018-11-25 10:00 | Consultation ---
History of Present Illness Consult date: 11/25/18 Chief complaint: reflux, partial GOO - History of present illness History of present illness: 88-year-old female known to me from admission in August 2018 for perforated peptic ulcer. Patient underwent an emergent exploratory laparotomy, David patch, peritoneal lavage on 09/09/18. Her postoperative course was uncomplicated and she was discharged on postop day 6. She followed up in the office on 09/24/2018 for postop check and was doing well. She was tolerating a diet without abdominal pain, nausea, vomiting. Proximately 1 month after this, on 11/03/18 the patient's daughter noted that the patient was experiencing bouts of acid reflux causing her to spit up. She was seen in the office once again on 11/05/18 and an upper GI was ordered as well as a referral made to GI. The patient was placed on a bland diet and Protonix was increased to twice a day. The patient did well with diet modification. Upper GI was performed on 11/08/18 which showed no obstruction, but was notable for some mild gastroesophageal reflux. The patient was seen by Dr. Marquez on 11/22/18 and outpatient EGD was performed. According to the patient's daughter, a large amount of food stasis was seen in the stomach and the patient was to undergo repeat EGD with balloon dilatation in the hospital on 12/04/18. The patient underwent this procedure and a severe narrowing was seen at the pylorus. An attempt was made to dilate it, however this was only partially successful. The patient was admitted to the hospital for IV fluids and repeat attempted EGD with dilatation and 48 hours. The patient was seen and examined today. She has no complaints. She states she wants to go home. She denies nausea, vomiting, abdominal pain. She is having bowel movements. Past History Past Medical History: hypertension, other (Sciatica, ) Past Surgical History: Other (Duodenal Perforation (Ulcer) 09/2018, Kyphoplasty) Social history: lives with family. denies: smoking, alcohol abuse Medications and Allergies Allergies Allergy/AdvReac Type Severity Reaction Status Date / Time iodine Allergy Mild Unknown Verified 11/24/18 13:24 Home Medications Medication Instructions Recorded Confirmed Last Taken Type Adult One Daily Multivit Tab 1 tab PO QDAY 08/28/18 11/24/18 Unknown History Gabapentin [Neurontin] 200 mg PO BID 08/28/18 11/24/18 11/23/18 History Losartan 100 mg PO QDAY 08/28/18 11/24/18 11/24/18 History Meloxicam 15 mg PO QAM 08/28/18 11/24/18 Unknown History Vitamin D (Nf) 1 tab PO QDAY 08/28/18 11/24/18 Unknown History Calc Carb/Vit D 500 mg-200 Uni 2 each PO BID #60 tablet 08/30/18 11/24/18 Unknown Rx [[place] D 500 mg-200 Unit] HYDROcodone/APAP 5-325 5 mg PO Q8HR PRN #14 08/30/18 11/24/18 11/23/18 Rx ALPRAZolam [Xanax TAB] 0.25 mg PO BID PRN 09/09/18 11/24/18 Unknown History Pantoprazole [Protonix TAB] 40 mg PO QDAY #30 tablet 09/15/18 11/24/18 11/23/18 Rx Melatonin 1 dose PO HS 11/24/18 11/24/18 Unknown History dilTIAZem CD [Cardizem Cd] 180 mg PO DAILY 11/24/18 11/24/18 History Active Meds: Active Medications Clonidine HCl (Catapres-Tts Patch) 0.2 mg TD QWEEK RADHA Enoxaparin Sodium (Lovenox) 40 mg SUB-Q QDAY@2200 RADHA Hydromorphone HCl (Dilaudid) 0.5 mg IV Q3H PRN PRN Reason: Pain , Severe (7-10) Sodium Chloride (Nacl 0.9% 1000 Ml) 1,000 mls @ 50 mls/hr IV DIRECT [facility] Last Admin: 11/24/18 18:27 Dose: 50 mls/hr Documented by: Melatonin (Melatonin) 5 mg PO QHS PRN PRN Reason: Sleep Last Admin: 11/24/18 22:34 Dose: 5 mg Documented by: Ondansetron HCl (Zofran) 4 mg IV Q3H PRN PRN Reason: Nausea And Vomiting Pantoprazole Sodium (Protonix) 40 mg IV BID [facility] Last Admin: 11/24/18 22:34 Dose: 40 mg Documented by: Sodium Chloride (Sodium Chloride Flush Syringe 10 Ml) 10 ml IV BID [facility] Last Admin: 11/24/18 22:34 Dose: 10 ml Documented by: Sodium Chloride (Sodium Chloride Flush Syringe 10 Ml) 10 ml IV PRN PRN PRN Reason: LINE FLUSH Review of Systems All systems: negative (10 pt ROS performed and negative except for that listed in HPI) Exam Vital Signs Temp Pulse Resp BP Pulse Ox 98.4 F 98 H 14 156/61 98 11/24/18 13:29 11/24/18 13:29 11/24/18 13:29 11/24/18 13:29 11/24/18 13:29 Narrative exam: Gen: AAOx2. NAD. Forgetful and tearful ENT: no scleral icterus or conjunctival pallor CV; S1, S2+ Resp: even and unlabored Abd: soft, NT, ND. well healed midline surgical scar Ext: no c/c/e Results - Labs 11/25/18 04:46 11/25/18 04:46 Abnormal lab results 11/24/18 11/24/18 11/25/18 Range/Units 17:50 17:50 04:46 RDW 15.5 H (13.2-15.2) % Carbon Dioxide 21 L (22-30) mmol/L Glucose 103 H (65-100) mg/dL Albumin 3.4 L 3.4 L (3.9-5) g/dL Diabetes panel 11/24/18 11/24/18 11/25/18 Range/Units 17:50 17:50 04:46 Sodium 139 141 (137-145) mmol/L Potassium 4.2 3.9 (3.6-5.0) mmol/L Chloride 103.5 105.7 (98-107) mmol/L Carbon Dioxide 22 21 L (22-30) mmol/L BUN 10 10 (7-17) mg/dL Creatinine 0.7 0.7 (0.7-1.2) mg/dL Glucose 90 103 H (65-100) mg/dL Hemoglobin A1c 5.4 (4-6) % Calcium 9.4 9.0 (8.4-10.2) mg/dL AST 14 13 (5-40) units/L ALT 8 7 (7-56) units/L Alkaline Phosphatase 81 80 (35-129) units/L Total Protein 6.3 6.3 (6.3-8.2) g/dL Albumin 3.4 L 3.4 L (3.9-5) g/dL Thyroid panel 11/24/18 Range/Units 17:50 TSH 1.130 (0.270-4.200) mlU/mL Calcium panel 11/24/18 11/25/18 Range/Units 17:50 04:46 Calcium 9.4 9.0 (8.4-10.2) mg/dL Albumin 3.4 L 3.4 L (3.9-5) g/dL Pituitary panel 11/24/18 11/24/18 11/25/18 Range/Units 17:50 17:50 04:46 Sodium 139 141 (137-145) mmol/L Potassium 4.2 3.9 (3.6-5.0) mmol/L Chloride 103.5 105.7 (98-107) mmol/L Carbon Dioxide 22 21 L (22-30) mmol/L BUN 10 10 (7-17) mg/dL Creatinine 0.7 0.7 (0.7-1.2) mg/dL Glucose 90 103 H (65-100) mg/dL Calcium 9.4 9.0 (8.4-10.2) mg/dL TSH 1.130 (0.270-4.200) mlU/mL Adrenal panel 11/24/18 11/25/18 Range/Units 17:50 04:46 Sodium 139 141 (137-145) mmol/L Potassium 4.2 3.9 (3.6-5.0) mmol/L Chloride 103.5 105.7 (98-107) mmol/L Carbon Dioxide 22 21 L (22-30) mmol/L BUN 10 10 (7-17) mg/dL Creatinine 0.7 0.7 (0.7-1.2) mg/dL Glucose 90 103 H (65-100) mg/dL Calcium 9.4 9.0 (8.4-10.2) mg/dL Total Bilirubin 0.30 0.30 (0.1-1.2) mg/dL AST 14 13 (5-40) units/L ALT 8 7 (7-56) units/L Alkaline Phosphatase 81 80 (35-129) units/L Total Protein 6.3 6.3 (6.3-8.2) g/dL Albumin 3.4 L 3.4 L (3.9-5) g/dL Assessment and Plan 88 yo F with 1. partial gastric outlet obstruction 2. hx of david patch for perforated duodenal ulcer 09/09/18 Plan: 1. EGD results discussed with Dr. Price. Repeat EGD with dilatation of stricture planned 2. NPO 3. IVF 4. further recommendations pending repeat EGD results Plan discussed with patient and son at the bedside. Thank you, please call with questions. Dr. Sinclair is rounding Thursday through Thursday.
[2018-11-25] MEDS: PANTOPRAZOLE 40 MG INJ IV SCH ×2 (10:13→21:48)
[2018-11-25] MEDS ORDERED: FLU VACC QUAD 2019-20 (3 YR UP)/PF 60 MCG/0.5 ML SYRINGE IM ONE (12:00)
[2018-11-25] MEDS: SODIUM CHLORIDE 0.9% 1000 ML 1,000 ML IV SCH (13:56)
--- NOTE | 2018-11-25 15:03 | Progress Note ---
Assessment and Plan Assessment and plan: Patient was admitted with history of worsening bloating and severe vomiting last 2-3 weeks , partial gastric outlet obstruction Patient had EGD with dilatation however unable to pass beyond that dictation. --Partial gastric outlet obstruction ; Duodenal stenosis. Status post EGD with balloon" Unable to pass the endoscope after the patient GI and surgery following, Repeat EGD tomorrow for possible dilatation of the stricture Unsuccessful surgical intervention . --Intractable nausea vomiting; Antiemetic IV fluids and supportive care --Hypertension; continue current antihypertensives and when necessary medications --DVT prophylaxis SCDs --Full code; Monitor Clinically and adjust management as needed History Interval history: Patient seen and examined medical records reviewed Patient complains of mild nausea and vomiting Alert and awake Vital signs noted Hospitalist Physical - Constitutional Vitals: Temp Pulse Resp BP Pulse Ox 98.4 F 100 H 18 155/75 95 11/25/18 12:41 11/25/18 12:41 11/25/18 12:41 11/25/18 12:41 11/25/18 12:41 General appearance: Present: no acute distress, cachectic, disheveled - EENT Eyes: Present: PERRL, EOM intact - Neck Neck: Present: supple, normal ROM - Respiratory Respiratory effort: normal Respiratory: bilateral: diminished, negative: rales, rhonchi, wheezing - Cardiovascular Rhythm: regular Heart Sounds: Present: S1 & S2 - Extremities Extremities: no ischemia, No edema - Abdominal General gastrointestinal: soft, non-tender, non-distended, normal bowel sounds - Integumentary Integumentary: Present: clear, warm - Psychiatric Psychiatric: appropriate mood/affect, cooperative - Neurologic Neurologic: moves all extremities Results - Labs CBC & Chem 7: 11/25/18 04:46 11/25/18 04:46 Labs: Laboratory Last Values WBC 5.8 K/mm3 (4.5-11.0) 11/25/18 04:46 RBC 4.28 M/mm3 (3.65-5.03) 11/25/18 04:46 Hgb 12.0 gm/dl (10.1-14.3) 11/25/18 04:46 Hct 36.5 % (30.3-42.9) 11/25/18 04:46 MCV 85 fl (79-97) 11/25/18 04:46 MCH 28 pg (28-32) 11/25/18 04:46 MCHC 33 % (30-34) 11/25/18 04:46 RDW 15.2 % (13.2-15.2) 11/25/18 04:46 Plt Count 190 K/mm3 (140-440) 11/25/18 04:46 Lymph % (Auto) 24.2 % (13.4-35.0) 11/25/18 04:46 [place] % (Auto) 5.8 % (0.0-7.3) 11/25/18 04:46 Eos % (Auto) 0.6 % (0.0-4.3) 11/25/18 04:46 Baso % (Auto) 0.7 % (0.0-1.8) 11/25/18 04:46 Lymph # 1.4 K/mm3 (1.2-5.4) 11/25/18 04:46 [place] # 0.3 K/mm3 (0.0-0.8) 11/25/18 04:46 Eos # 0.0 K/mm3 (0.0-0.4) 11/25/18 04:46 Baso # 0.0 K/mm3 (0.0-0.1) 11/25/18 04:46 Seg Neutrophils % 68.7 % (40.0-70.0) 11/25/18 04:46 Seg Neutrophils # 4.0 K/mm3 (1.8-7.7) 11/25/18 04:46 Sodium 141 mmol/L (137-145) 11/25/18 04:46 Potassium 3.9 mmol/L (3.6-5.0) 11/25/18 04:46 Chloride 105.7 mmol/L (98-107) 11/25/18 04:46 Carbon Dioxide 21 mmol/L (22-30) L 11/25/18 04:46 Anion Gap 18 mmol/L 11/25/18 04:46 BUN 10 mg/dL (7-17) 11/25/18 04:46 Creatinine 0.7 mg/dL (0.7-1.2) 11/25/18 04:46 Estimated GFR > 60 ml/min 11/25/18 04:46 BUN/Creatinine Ratio 14 % 11/25/18 04:46 Glucose 103 mg/dL (65-100) H 11/25/18 04:46 Hemoglobin A1c 5.4 % (4-6) 11/24/18 17:50 Calcium 9.0 mg/dL (8.4-10.2) 11/25/18 04:46 Total Bilirubin 0.30 mg/dL (0.1-1.2) 11/25/18 04:46 AST 13 units/L (5-40) 11/25/18 04:46 ALT 7 units/L (7-56) 11/25/18 04:46 Alkaline Phosphatase 80 units/L (35-129) 11/25/18 04:46 Total Protein 6.3 g/dL (6.3-8.2) 11/25/18 04:46 Albumin 3.4 g/dL (3.9-5) L 11/25/18 04:46 Albumin/Globulin Ratio 1.2 % 11/25/18 04:46 TSH 1.130 mlU/mL (0.270-4.200) 11/24/18 17:50 Active Medications - Current Medications Current Medications: Generic Name Dose Route Start Last Admin Trade Name Freq PRN Reason Stop Dose Admin Clonidine HCl 0.2 mg 12/01/18 10:00 Catapres-Tts Patch TD QWEEK RADHA Enoxaparin Sodium 40 mg 11/25/18 22:00 Lovenox SUB-Q QDAY@2200 RADHA Hydromorphone HCl 0.5 mg 11/24/18 16:29 Dilaudid IV Q3H PRN Pain , Severe (7-10) Sodium Chloride 1,000 mls @ 50 mls/hr 11/24/18 14:00 11/25/18 13:56 Nacl 0.9% 1000 Ml IV 50 mls/hr DIRECT RADHA Administration Melatonin 5 mg 11/24/18 22:06 11/24/18 22:34 Melatonin PO 5 mg QHS PRN Administration Sleep Ondansetron HCl 4 mg 11/24/18 16:29 Zofran IV Q3H PRN Nausea And Vomiting Pantoprazole Sodium 40 mg 11/24/18 22:00 11/25/18 10:13 Protonix IV 40 mg BID RADHA Administration Sodium Chloride 10 ml 11/24/18 22:00 11/25/18 10:14 Sodium Chloride Flush Syringe 10 Ml IV 10 ml BID RADHA Administration Sodium Chloride 10 ml 10/09/19 16:29 Sodium Chloride Flush Syringe 10 Ml IV PRN PRN LINE FLUSH
--- NOTE | 2018-11-25 16:43 | Gastroenterology Progress Note ---
Assessment and Plan 1. Duodenal stenosis - s/p egd with balloon dilatation to 10 mm, however unable to be traversed with endoscope after dilation. will plan for repeat egd with further dilatation tomorrow if no significant mucosal abnormalities. further recommendations following procedure tomorrow. surgery following in case pt does not respond to serial dilatations. Subjective Date of service: 11/25/18 Principal diagnosis: Duodenal Stenosis Interval history: Patient seen and examined. daughter at bedside. she has remained npo today and requesting to go home. denies abdominal pain; no n/v. Objective - Constitutional Vitals: Temp Pulse Resp BP Pulse Ox 98.4 F 100 H 18 155/75 95 11/25/18 12:41 11/25/18 12:41 11/25/18 12:41 11/25/18 12:41 11/25/18 12:41 General appearance: no acute distress - Respiratory Respiratory effort: normal Respiratory: bilateral: CTA - Cardiovascular Rhythm: regular Heart Sounds: Present: S1 & S2 - Gastrointestinal General gastrointestinal: Present: soft, non-tender, non-distended - Psychiatric Psychiatric: appropriate mood/affect - Labs CBC & Chem 7: 11/25/18 04:46 11/25/18 04:46 Labs: Laboratory Results - last 24 hr 11/24/18 11/24/18 11/24/18 17:50 17:50 17:50 WBC 7.0 RBC 4.41 Hgb 12.3 Hct 37.3 MCV 85 MCH 28 MCHC 33 RDW 15.5 H Plt Count 198 Lymph % (Auto) 24.5 [place] % (Auto) 6.3 Eos % (Auto) 0.3 Baso % (Auto) 0.4 Lymph # 1.7 [place] # 0.4 Eos # 0.0 Baso # 0.0 Seg Neutrophils % 68.5 Seg Neutrophils # 4.8 Sodium 139 Potassium 4.2 Chloride 103.5 Carbon Dioxide 22 Anion Gap 18 BUN 10 Creatinine 0.7 Estimated GFR > 60 BUN/Creatinine Ratio 14 Glucose 90 Hemoglobin A1c 5.4 Calcium 9.4 Total Bilirubin 0.30 AST 14 ALT 8 Alkaline Phosphatase 81 Total Protein 6.3 Albumin 3.4 L Albumin/Globulin Ratio 1.2 TSH 11/24/18 11/25/18 11/25/18 17:50 04:46 04:46 WBC 5.8 RBC 4.28 Hgb 12.0 Hct 36.5 MCV 85 MCH 28 MCHC 33 RDW 15.2 Plt Count 190 Lymph % (Auto) 24.2 [place] % (Auto) 5.8 Eos % (Auto) 0.6 Baso % (Auto) 0.7 Lymph # 1.4 [place] # 0.3 Eos # 0.0 Baso # 0.0 Seg Neutrophils % 68.7 Seg Neutrophils # 4.0 Sodium 141 Potassium 3.9 Chloride 105.7 Carbon Dioxide 21 L Anion Gap 18 BUN 10 Creatinine 0.7 Estimated GFR > 60 BUN/Creatinine Ratio 14 Glucose 103 H Hemoglobin A1c Calcium 9.0 Total Bilirubin 0.30 AST 13 ALT 7 Alkaline Phosphatase 80 Total Protein 6.3 Albumin 3.4 L Albumin/Globulin Ratio 1.2 TSH 1.130
[2018-11-25] MEDS ORDERED: hydrALAZINE 20 MG/1 ML INJ IV PRN (18:53)
[2018-11-25] MEDS: MELATONIN 5 MG TAB PO PRN (21:49)
[2018-11-25] MEDS ORDERED: ENOXAPARIN 40 MG/0.4 ML INJ SUB-Q SCH (22:00)
[2018-11-26] MEDS ORDERED: PANTOPRAZOLE 40 MG INJ IV SCH ×2 (10:00)
--- NOTE | 2018-11-26 12:27 | Anesthesia Day of Surgery ---
Anesthesia Day of Surgery - Day of Surgery Patient Examined: Yes Patient H&P Reviewed: Yes Patient is NPO: Yes
[2018-11-26] MEDS ORDERED: LIDOCAINE MPF (2%) 20 MG/1 ML VIAL 5 ML ONE (13:00)
[2018-11-26] MEDS ORDERED: SODIUM CHLORIDE 0.9% 1000 ML 1,000 ML IV SCH (13:00)
[2018-11-26] MEDS ORDERED: PROPOFOL 200 MG/20 ML VIAL IV ONE (13:33)
--- NOTE | 2018-11-26 14:24 | Operative Report ---
Operative Report Operative Report: Esophagogastroduodenoscopy Procedure Note with Duodenal dilatation Date of procedure: 11/26/2018 Endoscopist: Lee Duran Pre-op diagnosis/indication: Duodenal stenosis, gastric outlet obstruction Post-op diagnosis: Severe duodenal stenosis s/p balloon dilatation up to 12.5 mm; improved stenosis but unable to be traversed MEDICATIONS: MAC COMPLICATIONS: No immediate complications ESTIMATED BLOOD LOSS: Minimal DESCRIPTION OF PROCEDURE: After consent was obtained from patient's daughter, the patient was placed in the left lateral decubitis position. The olympus endoscope was inserted into the patient's mouth under direct vision and advanced to the first portion of the duodenum without difficulty. Unable to traverse into the 2nd portion due to stenosis. The patient tolerated the procedure well. The views of the mucosa were good. The patient's vital signs were monitored continuously throughout the procedure. FINDINGS: The esophagus appeared normal. The stomach appeared normal. There was no retained liquid or food in the stomach on today's exam. There was a suture/stitch seen in the duodenal bulb with mild surrounding ulceration There was a severe stenosis as seen in last endoscopy in the duodenal sweep/first portion of the duodenum. The surrounding mucosa was severe inflamed with secondary stenosis. There was a very small luminal opening. Balloon dilatation was performed up to 12.5 mm. There was appropriate heme and improvement in stenosis, but still could not be traversed with the endoscope. IMPRESSION: 1. 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 Improved stenosis, but still unable to be traversed. There was no retained food/liquid in the stomach. RECOMMENDATIONS: -patient wishes to go home. okay to be discharged with full clears/ensure supplements. if any issues or recurrent symptoms, instructed to come to hospital/ED. plan to repeat EGD in 2-3 weeks for further dilatation. if unsuccessful, surgery on board for next step -PPI BID and carafate QID at discharge
--- NOTE | 2018-11-26 15:05 | Progress Note ---
Hospitalist Physical - Constitutional Vitals: Temp Pulse Resp BP Pulse Ox 98.6 F 89 12 150/73 97 11/26/18 14:09 11/26/18 14:39 11/26/18 14:39 11/26/18 14:39 11/26/18 14:39 General appearance: Present: no acute distress, cachectic, disheveled Results - Labs CBC & Chem 7: 11/25/18 04:46 11/25/18 04:46 Labs: Laboratory Last Values WBC 5.8 K/mm3 (4.5-11.0) 11/25/18 04:46 RBC 4.28 M/mm3 (3.65-5.03) 11/25/18 04:46 Hgb 12.0 gm/dl (10.1-14.3) 11/25/18 04:46 Hct 36.5 % (30.3-42.9) 11/25/18 04:46 MCV 85 fl (79-97) 11/25/18 04:46 MCH 28 pg (28-32) 11/25/18 04:46 MCHC 33 % (30-34) 11/25/18 04:46 RDW 15.2 % (13.2-15.2) 11/25/18 04:46 Plt Count 190 K/mm3 (140-440) 11/25/18 04:46 Lymph % (Auto) 24.2 % (13.4-35.0) 11/25/18 04:46 [place] % (Auto) 5.8 % (0.0-7.3) 11/25/18 04:46 Eos % (Auto) 0.6 % (0.0-4.3) 11/25/18 04:46 Baso % (Auto) 0.7 % (0.0-1.8) 11/25/18 04:46 Lymph # 1.4 K/mm3 (1.2-5.4) 11/25/18 04:46 [place] # 0.3 K/mm3 (0.0-0.8) 11/25/18 04:46 Eos # 0.0 K/mm3 (0.0-0.4) 11/25/18 04:46 Baso # 0.0 K/mm3 (0.0-0.1) 11/25/18 04:46 Seg Neutrophils % 68.7 % (40.0-70.0) 11/25/18 04:46 Seg Neutrophils # 4.0 K/mm3 (1.8-7.7) 11/25/18 04:46 Sodium 141 mmol/L (137-145) 11/25/18 04:46 Potassium 3.9 mmol/L (3.6-5.0) 11/25/18 04:46 Chloride 105.7 mmol/L (98-107) 11/25/18 04:46 Carbon Dioxide 21 mmol/L (22-30) L 11/25/18 04:46 Anion Gap 18 mmol/L 11/25/18 04:46 BUN 10 mg/dL (7-17) 11/25/18 04:46 Creatinine 0.7 mg/dL (0.7-1.2) 11/25/18 04:46 Estimated GFR > 60 ml/min 11/25/18 04:46 BUN/Creatinine Ratio 14 % 11/25/18 04:46 Glucose 103 mg/dL (65-100) H 11/25/18 04:46 Hemoglobin A1c 5.4 % (4-6) 11/24/18 17:50 Calcium 9.0 mg/dL (8.4-10.2) 11/25/18 04:46 Total Bilirubin 0.30 mg/dL (0.1-1.2) 11/25/18 04:46 AST 13 units/L (5-40) 11/25/18 04:46 ALT 7 units/L (7-56) 11/25/18 04:46 Alkaline Phosphatase 80 units/L (35-129) 11/25/18 04:46 Total Protein 6.3 g/dL (6.3-8.2) 11/25/18 04:46 Albumin 3.4 g/dL (3.9-5) L 11/25/18 04:46 Albumin/Globulin Ratio 1.2 % 11/25/18 04:46 TSH 1.130 mlU/mL (0.270-4.200) 11/24/18 17:50 Active Medications - Current Medications Current Medications: Generic Name Dose Route Start Last Admin Trade Name Freq PRN Reason Stop Dose Admin Clonidine HCl 0.2 mg 12/01/18 10:00 Catapres-Tts Patch TD QWEEK RADHA Enoxaparin Sodium 40 mg 11/25/18 22:00 11/25/18 21:48 Lovenox SUB-Q 40 mg QDAY@2200 RADHA Administration Hydralazine HCl 10 mg 11/25/18 18:53 Apresoline IV Q4HR PRN HTN >155/90 Hydromorphone HCl 0.5 mg 11/24/18 16:29 Dilaudid IV Q3H PRN Pain , Severe (7-10) Sodium Chloride 1,000 mls @ 50 mls/hr 11/24/18 14:00 11/25/18 13:56 Nacl 0.9% 1000 Ml IV 50 mls/hr DIRECT RADHA Administration Sodium Chloride 1,000 mls @ 50 mls/hr 11/26/18 13:00 11/26/18 12:50 Nacl 0.9% 1000 Ml IV 50 mls/hr DIRECT RADHA Administration Melatonin 5 mg 11/24/18 22:06 11/25/18 21:49 Melatonin PO 5 mg QHS PRN Administration Sleep Ondansetron HCl 4 mg 11/24/18 16:29 Zofran IV Q3H PRN Nausea And Vomiting Pantoprazole Sodium 40 mg 11/26/18 10:00 11/26/18 10:33 Protonix IV 40 mg BID RADHA Administration Sodium Chloride 10 ml 11/24/18 22:00 11/26/18 10:33 Sodium Chloride Flush Syringe 10 Ml IV 10 ml BID RADHA Administration Sodium Chloride 10 ml 11/24/18 16:29 Sodium Chloride Flush Syringe 10 Ml IV PRN PRN LINE FLUSH
--- NOTE | 2018-11-26 17:41 | Discharge Summary ---
Providers - Providers Date of Admission: 11/24/18 15:18 Date of discharge: 11/26/18 Attending physician: EZRA MCCARTHY 11/24/18 16:29 Consult to Physician [CONS] Routine Comment: Consulting Provider: MARCIAL LIN Physician Instructions: Reason For Exam: PUD 11/24/18 16:35 Consult to Physician [CONS] Routine Comment: Consulting Provider: BULL RANGEL Physician Instructions: Reason For Exam: Duodenal stenosis 11/26/18 15:42 Consult to Case Management [CONS] Routine Services Needed at Discharge: Home Health Services Notified:: yes Primary care physician: Marisela THAYER MD Hospitalization Reason for admission: Gastric outlet obstruction Condition: Fair Procedures: 11/24/18 s/p egd with balloon dilatation to 10 mm, however unable to be traversed with endoscope after dilation. 11/26/18 Patient had rpt EGD Severe duodenal stenosis s/p balloon dilatation to 12.5 mm. Improved stenosis, but still unable to be traversed. There was no retained food/liquid in the stomach. EGD:Severe duodenal stenosis s/p balloon dilatation to 12.5 mm. Improved stenosis, but still unable to be traversed. There was no retained food/liquid in the stomach. RECOMMENDATIONS: -patient wishes to go home. okay to be discharged with full clears/ensure supplements. if any issues or recurrent symptoms, ,instructed to come to hospital/ED. plan to repeat EGD in 2-3 weeks for further dilatation. if unsuccessful, surgery on board for next step -PPI BID and carafate QID at discharge Hospital course: 88 yo female with a hx of perforated DU s/p surgery in the last 2 months was admitted with h/o worsening bloating and emesis in the last 2-3 weeks. She is compliant with protonix every day, and is not on NSAIDs. An EGD could not be completed due to duodenal stricture with food in the stomach. GI evaluated and had EGD with balloon dilatation to 10mm however unable to traverse with endoscope. Patient was symptomatically managed,evaluated by GI and surgery,had rpt endoscopy on 11/26/18 s/p balloon dilatation to 12.5 mm,stenosis improved but could not traverse.Advised clear/full liquids with ensure products and f/u per schedule. Advised to return to ER if symptoms persist. Cleared by GI and Surg for discharge with instructions . Patient hemodynamically stable at discharge Discharge Diagnosis: --Partial gastric outlet obstruction ; Duodenal stenosis. Status post EGD with balloon dilatation" Unable to pass the endoscope. GI and surgery evaluated Repeat EGD s/p balloon dilatation to 12.5mm.improved stenosis No food or liquid in the stomach advised clear liquids with ensure products as tolerated --Intractable nausea vomiting;improved --Hypertension; stable, antihypertensives --Neuropathy:Continue gabapentine Cleared by GI and Surg for DC and f/u out pt Stable at discharge Disposition: DC-01 TO HOME OR SELFCARE Time spent for discharge: 32 min Core Measure Documentation - Palliative Care Palliative Care/ Comfort Measures: Not Applicable - Core Measures Any of the following diagnoses?: none Exam - Constitutional Vitals: Temp Pulse Resp BP Pulse Ox 98.6 F 89 12 150/73 97 11/26/18 14:09 11/26/18 14:39 11/26/18 14:39 11/26/18 14:39 11/26/18 14:39 General appearance: Present: no acute distress, well-nourished - EENT Eyes: Present: PERRL, EOM intact - Neck Neck: Present: supple, normal ROM - Respiratory Respiratory effort: normal Respiratory: bilateral: diminished, negative: rales, rhonchi, wheezing - Cardiovascular Rhythm: regular Heart Sounds: Present: S1 & S2 - Extremities Extremities: no ischemia, No edema - Abdominal General gastrointestinal: Present: soft, non-tender, non-distended, normal bowel sounds - Integumentary Integumentary: Present: clear, warm - Musculoskeletal Musculoskeletal: strength equal bilaterally - Psychiatric Psychiatric: appropriate mood/affect, cooperative - Neurologic Neurologic: CNII-XII intact, moves all extremities Plan Activity: advance as tolerated, fall precautions Diet: other (Clear liquids[advance as tolerated]) Additional Instructions: Clear liquids advance as tolerated. PPI BID and carafate QID at discharge. If you have nausea vomiting abdominal pain contact M.D. or go to emergency room Follow up with: Stephanie THAYER MD [Primary Care Provider] - 7 Days MARIA LUISA POZO MD [Staff Physician] - 7 Days BULL RANGEL DO [Staff Physician] - 7 Days Prescriptions: Sucralfate [Carafate] 1 gm PO Q6HR #40 tablet Diltiazem HCl [Cardizem LA] 180 mg PO DAILY #30 tab.er.24h Pantoprazole [Protonix] 40 mg PO BID #60 tablet
[2018-11-26 17:48] VITALS: BP 148/75
--- NOTE | 2018-11-26 17:51 | Progress Note ---
Assessment and Plan - Patient Problems (1) Partial gastric outlet obstruction Current Visit: Yes Status: Acute Plan to address problem: Pt stable. Agree with Dr. Duran's assessment. Would allow her to go home on a liquid diet. I recommended to the patient and the daughter that she follow up with Dr. Love either in the clinic or by phone after the next EGD is done. If there is still a significant stenosis, then surgical intervention can be ent ertained. They were appreciative. Okay to DC home from my perspective. Please call with questions time=10min Subjective Date of service: 11/26/18 Patient Reports: Positive: no new complaints (ready to go home). Negative: nausea, vomiting Objective Vital Signs - 12hr 11/26/18 11/26/18 11/26/18 05:56 11:28 12:36 Temperature 98.1 F 98.2 F 98.7 F Pulse Rate 92 H 101 H 96 H Respiratory 20 20 20 Rate Blood Pressure 156/72 163/63 150/58 O2 Sat by Pulse 96 95 98 Oximetry 11/26/18 11/26/18 11/26/18 12:39 14:09 14:24 Temperature 98.7 F 98.6 F Pulse Rate 96 H 96 H 91 H Respiratory 20 16 21 Rate Blood Pressure 150/58 145/76 140/65 O2 Sat by Pulse 98 98 97 Oximetry 11/26/18 11/26/18 14:39 16:41 Temperature 97.8 F Pulse Rate 89 109 H Respiratory 12 20 Rate Blood Pressure 150/73 148/75 O2 Sat by Pulse 97 95 Oximetry - General physical appearance no distress, no pain, other (looks well) - Eyes normal occular movement - Respiratory normal expansion, normal respiratory effort - Abdomen soft - Psychiatric oriented to time, oriented to person, oriented to place, speech is normal, memory intact - Labs 11/25/18 04:46 11/25/18 04:46
[2018-12-01] MEDS ORDERED: cloNIDine TTS 0.2 MG/24 HR PATCH TD SCH (10:00)
== END 2018-11-26 18:30 | disposition home or self-care (01) | DRG 381 ==
LOC: GIO 11:57 → 2B-ACE 15:18 → 3A 15:56
PROVIDERS: ADMIT Internal Medicine; ATTEND Internal Medicine
PROC: 0D798ZZ Dilation of Duodenum, Via Natural or Artificial Opening Endoscopic (ICD-10-PCS; principal; 2018-11-24)
PROC: 0D798ZZ Dilation of Duodenum, Via Natural or Artificial Opening Endoscopic (ICD-10-PCS; 2018-11-26)
DX: K31.1 Adult hypertrophic pyloric stenosis (principal); K31.5 Obstruction of duodenum; I10 Essential (primary) hypertension; G62.9 Polyneuropathy, unspecified; F41.1 Generalized anxiety disorder; K27.9 Peptic ulcer, site unspecified, unspecified as acute or chronic, without hemorrhage or perforation; I48.91 Unspecified atrial fibrillation; K21.9 Gastro-esophageal reflux disease without esophagitis
CPT/HCPCS: 36415; 80053; 83036; 84443; 85025; 87116; 90686; G0378; C1726; C9113; J1650; J2704; J3010; J7030

== ENCOUNTER 2019-02-25 09:03 | Outpatient (CLI) | payer MEDICARE ==
--- NOTE | 2019-02-25 13:47 | Fluoroscopy Report ---
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 TECHNIQUE: Single and double contrast barium technique utilized to evaluate the esophagus, stomach, and duodenal C-loop. FINDINGS: To begin the exam, swallowing was evaluated in the lateral position under direct fluorosco py. Swallowing was normal. The esophagus is normal caliber and mucosal pattern throughout. Occasional tertiary contractions in t he mid to distal esophagus was witnessed consistent with esophageal dysmotility. No episodes of reflu x were witnessed during this exam. There is mild mucosal thickening throughout the stomach suggesting a mild gastritis. No focal ulcerat ion or mass. No obstruction. There may be mild stenosis of the descending duodenum. This does not obstruct. The proximal duodenum lumen measures approximately 1 cm in diameter. The remainder of the duodenum is unremarkable. IMPRESSION: Mild narrowing of the descending duodenum could be considered. Mild gastritis. Mild esophageal dysmotility. Fluoroscopic time: 1.0 minutes Number of fluoroscopic images: 23 Signer Name: Álvaro Quijano Jr, MD Signed: 02/25/2019 1:43 PM Workstation Name: [id number]
== END 2019-02-25 09:04 | disposition home or self-care (01) ==
LOC: FLUORO 09:03
PROVIDERS: ATTEND Internal Medicine Gastroenterology
DX: K29.60 Other gastritis without bleeding (principal); K22.8 Other specified diseases of esophagus; K31.5 Obstruction of duodenum; I10 Essential (primary) hypertension; K21.9 Gastro-esophageal reflux disease without esophagitis; Z90.710 Acquired absence of both cervix and uterus; M19.90 Unspecified osteoarthritis, unspecified site
CPT/HCPCS: 74246